=== PATIENT | female | born 1935 | race Caucasian/White ===

== ENCOUNTER → 2024-01-12 13:23 | Outpatient (REF) | payer MEDICARE, BC, SELFPAY ==
[2024-01-12 16:30] LABS: Blood Urea Nitrogen 19 mg/dl (7-17); Calcium 9.5 mg/dl (8.4-10.2); Carbon Dioxide 28 mmol/L (22-30); Chloride 97 mmol/L (98-107); Glucose 84 mg/dl (70-99); Potassium 4.3 mmol/L (3.5-5.1); Sodium 134 mmol/L (135-145); eGFR > 60.00
== END ==
LOC: HWLAB 13:23
PROVIDERS: ATTENDING PHYSICIAN Surgery Vascular Surgery; FAMILY PHYSICIAN Family Medicine
DX: I72.8 Aneurysm of other specified arteries (principal)
CPT/HCPCS: 36415; 80048

== ENCOUNTER → 2024-01-26 09:44 | Outpatient (REF) | payer MEDICARE, BC, SELFPAY | LOC: HWRAD 09:44 | PROVIDERS: ATTENDING PHYSICIAN Surgery Vascular Surgery; FAMILY PHYSICIAN Family Medicine | DX: I72.8 Aneurysm of other specified arteries (principal) | CPT/HCPCS: 74174; Q9967 ==

== ENCOUNTER → 2024-03-22 12:57 | Outpatient (REF) | payer MEDICARE, BC, SELFPAY | LOC: PAVMRI 12:57 | PROVIDERS: ATTENDING PHYSICIAN Neurological Surgery; FAMILY PHYSICIAN Family Medicine | DX: M54.6 Pain in thoracic spine (principal) | CPT/HCPCS: 72146 ==

== ENCOUNTER 2024-05-16 22:44 | Emergency (ER) | payer MEDICARE, BC, SELFPAY ==
[2024-05-16 22:45] VITALS: BP 223/104
[2024-05-16 22:49] VITALS: BP 207/101
[2024-05-16 23:24] VITALS: BP 210/81
--- NOTE | 2024-05-16 23:36 | ED.GENMED ---
Addendum entered and electronically signed by Dale Sneed DO 05/17/24 01:46:
Update CT reports noted, patient's blood pressure improved, resting comfortably states she is feeling better
Reviewed her outpatient meds she is on losartan 100 mg, previously 50 and then 75 and also diltiazem daily
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
Original Note:
History of Present Illness
General
Chief Complaint: Blood Pressure Problem
Source: patient and family
Exam Limitations: none
Time Seen by Provider: 05/16/24 22:56
Nursing documentation reviewed up to this point in time: agreed with
History of Present Illness
History of Present Illness:
88-year-old female hypertension, high cholesterol, recent UTI treated with antibiotics sinus congestion chronic followed by ENT, Noel's esophagitis presents with fatigue headache congestion elevated blood pressure blood pressures are normal few
days ago elevated today called her daughters, states she was available brought to the ER states feels a little short of breath due to congestion from her sinuses believe she may be more pale than normal, daughter is do not believe that is the case,
no fevers, no vomiting she took her evening dose of blood pressure medicine currently
Past History
Past History
ED Past Medical History: GERD, HTN, Hypercholesterolemia and Other (Back pain, Barrets esophagus, hiatal hernia)
ED Past Surgical History: Gynecological (Breast biopsy) and Other (Bladder surgery, vein stripping cataracts)
Social History
Tobacco: Non-smoker
Alcohol: None
Drug: None
Personal:
Living: alone
Employment: Retired
Review of Systems
Review of Systems
All Other Systems: Not applicable
Constitutional: Reports fatigue; Denies fever
EENT: Reports runny nose
Respiratory: Reports trouble breathing; Denies cough
Cardiac: Denies chest pain
ABD/GI: Reports no symptoms
: Reports no symptoms
Musculoskeletal: Reports no symptoms
Neurological: Reports headache
Endocrine: Reports no symptoms
Phy Exam
Physical Exam
Physical Exam:
Physical Exam
General: no apparent distress, not acutely ill
Neck: No jaundice slightly stuffiness
Heart: s1/s2 regular rate and rhythm, no murmur. equal radial pulses.
Lungs: no acute respiratory distress. clear bilaterally
Abdomen: Nontender
Neuro: alert and oriented. no focal neurological deficits
Skin: no rash
Psychiatric: well kept. interactive and cooperative
Extremities: no edema.
Scores
Heart Score for Chest Pain Patients
STEMI patient?: No
History: Slightly or Non-Suspicious
ECG: Normal
Age: >/= 65 years
Risk Factors: 1 or 2 Risk Factors
Troponin: </= Normal Limit
Heart Score for Chest Pain Patients: 3
Heart Score Risk: 2.5% MACE over next 6 weeks
Course
Orders/Labs/Results
Orders:
Orders
05/16/24 23:26
Electrocardiogram (*1) Stat
Reason for Study: Other
Other Reason for Exam: Headache
Cardiac Monitoring- Treatment ONCE
EKG- Treatment ONCE
05/16/24 23:27
HydrALAZINE [Apresoline] 10 mg IV NOW STA
05/16/24 23:28
CR Chest - 2 Views Urgent
Comment:
Reason For Exam: faigute
05/16/24 23:34
Complete Blood Count/With Diff Urgent
05/16/24 23:35
Comprehensive Metabolic Panel Urgent
Troponin I Urgent
05/17/24 00:10
CT Head W/o Iv Contrast Urgent
Reason For Exam: headahce
05/17/24 00:15
CT Sinuses W/o Iv Contrast Urgent
Reason For Exam: headache
Abnormal Lab Results
05/16/24 05/16/24
23:34 23:35
WBC 4.5 L 10^3/uL
(4.8-10.8)
RBC 3.36 L 10^6/uL
(4.20-5.40)
Hgb 10.9 L g/dL
(12.0-16.0)
Hct 30.3 L %
(37.0-47.0)
MCH 32.4 H pg
(27.0-31.0)
Absolute Lymphs (auto) 0.9 L 10^3/uL
(1.2-3.4)
Monocytes % 11.9 H %
(1.7-9.3)
Sodium 131 L mmol/L
(135-145)
Glucose 114 H mg/dl
(70-99)
05/16/24 23:34
05/16/24 23:35
Vital Signs
Initial and Last Documented VS:
Initial Vital Signs
Temp Pulse Resp BP Pulse Ox
98.3 F 100 18 223/104 96
05/16/24 22:45 05/16/24 22:45 05/16/24 22:45 05/16/24 22:45 05/16/24 22:45
Last Documented Vital Signs
Temp Pulse Resp BP Pulse Ox
98.3 F 93 16 162/62 96
05/16/24 22:45 05/17/24 00:00 05/17/24 00:00 05/17/24 00:00 05/16/24 22:45
MDM/Problems Addressed
Differential Diagnosis Includes:
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
MDM/Problems Addressed:
Headache blood pressure
Chronic conditions affecting care: HTN
Acute Exacerbation and/or Progression of Chronic Illness: HTN
*Radiology
Radiology exam reviewed: preliminary read by ED provider
*Pulse Oximetry
Patient hypoxic: no
*EKG
Interpreted by ED Provider?: Yes
Interpretation: abnormal
Comparison EKG: no comparison EKG present
Heart Rate: 94
Rate: normal
Rhythm: sinus
Ischemia: non-specific ST changes
*Back Tender Fourdrinier Interpretation
Rate: normal
Interpretation: normal
Heart Rate: 88
Rhythm: sinus
*Critical Care Note
Total Time (30-74mins, 75-104mins- exclusive of procedures): Not Applicable
ED Attending Note
-
Portions of this chart may have been created with voice recognition software.� Occasional wrong word or��sound alike� substitutions may have occurred due to the inherent limitations of voice recognition software.
Discharge Plan
Departure
Prescriptions:
No Action
atorvastatin 10 MG tablet
1 tab PO DAILY
diltiazem HCl [Tiadylt ER] 240 MG capsule,extended release 24 hr
240 mg PO DAILY
omeprazole 40 MG capsule,delayed release(DR/EC)
40 mg PO DAILY
losartan 25 MG tablet
25 mg PO DAILY
cholecalciferol (vitamin D3) 2,000 UNITS tablet
2,000 units PO DAILY
Prolia 60 MG/ML syringe
60 mg SC [id number]
loratadine 10 MG capsule
10 mg PO DAILYPRN PRN (Reason: allergies)
PreserVision AREDS-2 1 EACH capsule
1 cap PO DAILY
clobetasol 0.05 % Cream
1 applic TOPICAL WEEKLY
cranberry 400 mg Capsule
400 mg PO DAILY
estradiol 0.01 % (0.1 mg/gram) Cream
1 g VAGINAL QWEEK
Systane (PF) 0.4-0.3 % Dropperette
1 drp OPHTHALMIC (EYE) BID
lidocaine [DermacinRx Lidocan] 5 % adhesive patch,medicated
1 patch topical DAILY Qty: 30 0RF
Referrals:
Feli Guzman DO [Family Provider] -
Interventions
Interventions:
*General Assessment Last Done: 05/16/24 22:45
*Neglect/Abuse Screening Last Done: 05/16/24 22:45
ED- Fall Risk Assessment Last Done: 05/16/24 22:49
*ED COVID-19 Vaccine History Last Done: 05/16/24 22:49
ED- Cardiac Assessment Last Done: 05/16/24 23:30
ED- Neurological Assessment Last Done: 05/16/24 23:30
ED- Pulmonary Assessment Last Done: 05/16/24 23:30
Discharge Date and Time
Print Language: LUXEMBOURGISH
[2024-05-16] MEDS: APRESOLINE 10 MG IV (23:40)
[2024-05-16 23:43] LABS: % Basophils 0.7 % (0-2); % Eosinophils 4.5 % (0-6); % Immature Granulocytes 0.4 % (0-0.5); % Lymphocytes 20.8 % (20.5-51.1); % Monocytes 11.9 % (1.7-9.3); % Neutrophils 61.7 % (42.2-75.2); Absolute Eosinophils 0.2 10^3/uL (0-0.7); Absolute Lymphocytes 0.9 10^3/uL (1.2-3.4); Absolute Monocytes 0.5 10^3/uL (0.1-0.6); Absolute Neutrophils 2.8 10^3/uL (1.4-6.5); Hematocrit 30.3 % (37.0-47.0); Hemoglobin 10.9 g/dL (12.0-16.0); Mean Corpuscular Hgb 32.4 pg (27.0-31.0); Mean Corpuscular Volume 90.2 fL (81.0-99.0); Mean Platelet Volume 9.1 fL (7.4-10.4); Nucleated Red Blood Cells % 0 %; Platelet Count 194 10^3/uL (130-400); Red Blood Cell Count 3.36 10^6/uL (4.20-5.40); Red Cell Dist. Width 13.1 % (11.5-14.5); White Blood Cell Count 4.5 10^3/uL (4.8-10.8)
[2024-05-16 23:49] VITALS: BMI 20.7
[2024-05-16 23:53] VITALS: BP 176/68
[2024-05-17] VITALS: BP 162/62
[2024-05-17 00:07] LABS: Troponin I < 0.012 ng/ml
[2024-05-17 00:13] LABS: ALT (SGPT) 24 U/L (0-35); AST (SGOT) 29 U/L (14-36); Albumin 3.8 g/dl (3.5-5.0); Alkaline Phosphatase 92 U/L (38-126); Blood Urea Nitrogen 15 mg/dl (7-17); Calcium 9.8 mg/dl (8.4-10.2); Carbon Dioxide 22 mmol/L (22-30); Chloride 102 mmol/L (98-107); Estimated Creatinine Clearance 41 ml/min; Glucose 114 mg/dl (70-99); Potassium 4.1 mmol/L (3.5-5.1); Sodium 131 mmol/L (135-145); Total Bilirubin 0.5 mg/dl (0.2-1.3); Total Protein 6.3 g/dl (6.3-8.2); eGFR > 60.00
[2024-05-17 00:44] VITALS: BP 149/60
[2024-05-17 01:00] VITALS: BP 144/55
--- NOTE | 2024-05-17 01:24 | ED.GENMED ---
History of Present Illness
General
Chief Complaint: Blood Pressure Problem
Time Seen by Provider: 05/16/24 22:56
Past History
Past History
ED Past Medical History: GERD, HTN, Hypercholesterolemia and Other (Back pain, Barrets esophagus, hiatal hernia)
ED Past Surgical History: Gynecological (Breast biopsy) and Other (Bladder surgery, vein stripping cataracts)
Social History
Tobacco: Non-smoker
Alcohol: None
Drug: None
Personal:
Living: alone
Employment: Retired
Course
Orders/Labs/Results
Orders:
Orders
05/16/24 23:26
Electrocardiogram (*1) Stat
Reason for Study: Other
Other Reason for Exam: Headache
Cardiac Monitoring- Treatment ONCE
EKG- Treatment ONCE
05/16/24 23:27
HydrALAZINE [Apresoline] 10 mg IV NOW STA
05/16/24 23:28
CR Chest - 2 Views Urgent
Comment:
Reason For Exam: faigute
05/16/24 23:34
Complete Blood Count/With Diff Urgent
05/16/24 23:35
Comprehensive Metabolic Panel Urgent
Troponin I Urgent
05/17/24 00:10
CT Head W/o Iv Contrast Urgent
Reason For Exam: headahce
05/17/24 00:15
CT Sinuses W/o Iv Contrast Urgent
Reason For Exam: headache
Abnormal Lab Results
05/16/24 05/16/24
23:34 23:35
WBC 4.5 L 10^3/uL
(4.8-10.8)
RBC 3.36 L 10^6/uL
(4.20-5.40)
Hgb 10.9 L g/dL
(12.0-16.0)
Hct 30.3 L %
(37.0-47.0)
MCH 32.4 H pg
(27.0-31.0)
Absolute Lymphs (auto) 0.9 L 10^3/uL
(1.2-3.4)
Monocytes % 11.9 H %
(1.7-9.3)
Sodium 131 L mmol/L
(135-145)
Glucose 114 H mg/dl
(70-99)
05/16/24 23:34
05/16/24 23:35
Vital Signs
Initial and Last Documented VS:
Initial Vital Signs
Temp Pulse Resp BP Pulse Ox
98.3 F 100 18 223/104 96
05/16/24 22:45 05/16/24 22:45 05/16/24 22:45 05/16/24 22:45 05/16/24 22:45
Last Documented Vital Signs
Temp Pulse Resp BP Pulse Ox
98.3 F 93 16 162/62 96
05/16/24 22:45 05/17/24 00:00 05/17/24 00:00 05/17/24 00:00 05/16/24 22:45
Update Note
Update Note:
Update CT reports noted, patient's blood pressure improved, resting comfortably states she is feeling better
Reviewed her outpatient meds she is on losartan 100 mg, previously 50 and then 75 and also diltiazem daily
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
ED Attending Note
-
Portions of this chart may have been created with voice recognition software.� Occasional wrong word or��sound alike� substitutions may have occurred due to the inherent limitations of voice recognition software.
Discharge Plan
Departure
Prescriptions:
No Action
atorvastatin 10 MG tablet
1 tab PO DAILY
diltiazem HCl [Tiadylt ER] 240 MG capsule,extended release 24 hr
240 mg PO DAILY
losartan 25 MG tablet
100 mg PO DAILY
cholecalciferol (vitamin D3) 2,000 UNITS tablet
2,000 units PO DAILY
Prolia 60 MG/ML syringe
60 mg SC [id number]
PreserVision AREDS-2 1 EACH capsule
1 cap PO DAILY
clobetasol 0.05 % Cream
1 applic TOPICAL .TWICE PER WK
cranberry 400 mg Capsule
400 mg PO DAILY
estradiol 0.01 % (0.1 mg/gram) Cream
1 g VAGINAL .TWICE PER WK
Systane (PF) 0.4-0.3 % Dropperette
1 drp OPHTHALMIC (EYE) BID
lidocaine [DermacinRx Lidocan] 5 % adhesive patch,medicated
1 patch topical DAILY Qty: 30 0RF
omeprazole 20 mg Capsule,Delayed Release(Dr/Ec)
20 mg PO DAILY
Fluticasone Nasal [place]
2 spray instillation DAILY
Rx Instructions:
EACH NOSTRIL
Vitamin B12 Tablet
1,000 mcg PO DAILY
Referrals:
Feli Guzman DO [Family Provider] -
Interventions
Interventions:
*General Assessment Last Done: 05/16/24 22:45
*Neglect/Abuse Screening Last Done: 05/16/24 22:45
ED- Fall Risk Assessment Last Done: 05/16/24 22:49
*ED COVID-19 Vaccine History Last Done: 05/16/24 22:49
ED- Cardiac Assessment Last Done: 05/16/24 23:30
ED- Neurological Assessment Last Done: 05/16/24 23:30
ED- Pulmonary Assessment Last Done: 05/16/24 23:30
Discharge Date and Time
Print Language: OCCITAN
[2024-05-17 01:36] VITALS: BP 116/50
== END 2024-05-17 01:40 | disposition home or self-care (01) ==
LOC: EMR 22:44
PROVIDERS: EMERGENCY PHYSICIAN Emergency Medicine; FAMILY PHYSICIAN Family Medicine
DX: R51.9 Headache, unspecified (principal); I10 Essential (primary) hypertension; E78.00 Pure hypercholesterolemia, unspecified; K21.9 Gastro-esophageal reflux disease without esophagitis; Z87.19 Personal history of other diseases of the digestive system; Z87.440 Personal history of urinary (tract) infections
CPT/HCPCS: 99284; 96374; 70450; 70486; 71046; 80053; 84484; 85025; 93005

== ENCOUNTER 2024-05-23 19:26 | Inpatient (IN) | payer MEDICARE, BC, SELFPAY ==
[2024-05-23 16:53] VITALS: BP 194/110
[2024-05-23 18:10] LABS: PT 14.1 Sec (11.4-14.6)
[2024-05-23 18:11] LABS: APTT 27.5 Sec (23.4-35.0)
[2024-05-23 18:12] LABS: % Basophils 0.4 % (0-2); % Eosinophils 3.8 % (0-6); % Immature Granulocytes 0.7 % (0-0.5); % Lymphocytes 22.3 % (20.5-51.1); % Monocytes 12.8 % (1.7-9.3); Absolute Eosinophils 0.2 10^3/uL (0-0.7); Absolute Monocytes 0.6 10^3/uL (0.1-0.6); Absolute Neutrophils 2.7 10^3/uL (1.4-6.5); Hemoglobin 10.3 g/dL (12.0-16.0); Mean Corp Hgb Conc. 35.5 g/dL (33.0-37.0); Mean Corpuscular Hgb 32.4 pg (27.0-31.0); Mean Corpuscular Volume 91.2 fL (81.0-99.0); Nucleated Red Blood Cells % 0 %; Platelet Count 3 10^3/uL (130-400); Red Blood Cell Count 3.18 10^6/uL (4.20-5.40); Red Cell Dist. Width 13.3 % (11.5-14.5); White Blood Cell Count 4.5 10^3/uL (4.8-10.8)
--- NOTE | 2024-05-23 18:14 | ED.GENMED ---
History of Present Illness
General
Chief Complaint: Abnormal Lab Value
Source: patient
Time Seen by Provider: 05/23/24 17:16
History of Present Illness
History of Present Illness:
88-year-old female with past medical history of hypertension and hyperlipidemia presenting to the emergency department for evaluation at the request of her primary care provider after patient had outpatient labs done today which showed a platelet
count of 2. Patient notes that she has been a little bit fatigued over the last few weeks and notes that she was treated for urinary tract infection, initially on ciprofloxacin but culture reportedly showed resistance to this so was switched to
doxycycline and the patient has completed this. She denies any fevers, chills, rigors but does states she has noted some increased bruising to both her upper and lower extremities and then a couple of days ago noted when she blew her nose it was
rae blood and then has also had some intraoral blood today as well. She denies any history of thrombocytopenia but does note a history of mild anemia. She is not on any anticoagulant medication.
Past History
Past History
ED Past Medical History: GERD, HTN, Hypercholesterolemia and Other (Back pain, Barrets esophagus, hiatal hernia)
ED Past Surgical History: Gynecological (Breast biopsy) and Other (Bladder surgery, vein stripping cataracts)
Social History
Tobacco: Non-smoker
Alcohol: None
Drug: None
Personal:
Living: alone
Employment: Retired
Review of Systems
Review of Systems
All Other Systems: ROS reviewed and negative except as documented in HPI and ROS
Phy Exam
Physical Exam
Physical Exam:
GENERAL: Alert , in no apparent distress
EYE: clear conjunctiva
NECK: Supple
ENT: o/p clr, mmm. Small bleeding from the gums and tongue
CARDIAC: Regular rate and rhythm .
LUNGS: Clear breath sounds bilaterally, no acute respiratory distress, no wheezes/rales/rhonchi
ABDOMEN: Soft, without focal tenderness, no r/g, no cvat
NEUROLOGICAL: Alert and oriented
SKIN: Warm and dry, skin intact. Scattered petechiae to bilateral upper and lower extremities including the soft palate
MUSCULOSKELETAL: No edema, well perfused.
PSYCH: Normal and appropriate interaction.
Scores
Heart Failure Risk
Heart Failure Risk Score: Not Applicable
Heart Score for Chest Pain Patients
STEMI patient?: Not applicable
Withdrawal Assessment of Alcohol
Withdrawal Assessment Completed?: Not applicable
Course
Orders/Labs/Results
Orders:
Orders
05/23/24 17:40
Dexamethasone Sod Phosphate [Decadron] 20 mg IV NOW STA
05/23/24 17:43
* Blood Bank Products Urgent
Blood Bank Products: *Plt Single Donor Leuko
Quantity: 1
Transfuse Today: Yes
Reason: Thrombocytopenia
05/23/24 17:48
Type+Screen Urgent
Complete Blood Count/With Diff Urgent
Comprehensive Metabolic Panel Urgent
PTT Urgent
Prothrombin Time Urgent
05/23/24 19:00
Dexamethasone Sod Phosphate [Decadron] 40 mg 0.9% Sodium Chloride 50 ml [Nss] 50 ml IV ONCE
Abnormal Lab Results
05/23/24
17:48
WBC 4.5 L 10^3/uL
(4.8-10.8)
RBC 3.18 L 10^6/uL
(4.20-5.40)
Hgb 10.3 L g/dL
(12.0-16.0)
Hct 29.0 L %
(37.0-47.0)
MCH 32.4 H pg
(27.0-31.0)
Plt Count 3 L* D 10^3/uL
(130-400)
Absolute Lymphs (auto) 1.0 L 10^3/uL
(1.2-3.4)
Immature Gran % 0.7 H %
(0-0.5)
Monocytes % 12.8 H %
(1.7-9.3)
Sodium 130 L mmol/L
(135-145)
Total Protein 6.1 L g/dl
(6.3-8.2)
05/23/24 17:48
05/23/24 17:48
Vital Signs
Initial and Last Documented VS:
Initial Vital Signs
Temp Pulse Resp BP Pulse Ox
98.5 F 102 18 194/110 94
05/23/24 16:53 05/23/24 16:53 05/23/24 16:53 05/23/24 16:53 05/23/24 16:53
Last Documented Vital Signs
Temp Pulse Resp BP Pulse Ox
98.5 F 102 18 194/110 94
05/23/24 16:53 05/23/24 16:53 05/23/24 16:53 05/23/24 16:53 05/23/24 16:53
Turret Lathe Tender consulted with Physician
Turret Lathe Tender consulted with physician?: Yes
Name of Physician Consulted: Leona
MDM/Problems Addressed
Differential Diagnosis Includes:
ITP, TTP, malignancy, drug induced reaction
MDM/Problems Addressed:
88-year-old female presenting to the ER at the recommendation of her primary care due to thrombocytopenia with a platelet count of 2. Patient does report some increased fatigue as well as petechiae to her extremities. Labs reviewed from earlier
this morning and there is no anemia or leukocytosis/leukopenia. Question viral infection versus drug-induced ITP versus malignancy. Will discuss with hematology. Anticipate admission
*Pulse Oximetry
Patient hypoxic: no
*Critical Care Note
Total Time (30-74mins, 75-104mins- exclusive of procedures): 30
comment:
Critical care statement: A total of 30 minutes of critical care time was provided for this patient. This includes management of unstable vital signs, evaluation of the patient at bedside, reviewing the patient's pertinent medical records, discussion
with consultants, review of old EKGs and review of pertinent medical records. This time with separate from time utilized to perform the aforementioned documented procedures
Data Reviewed
Review of Other/Old Records Reveals: Labs and Records
Patient Management
Discussion with other providers: Hospitalist and Acid Bleacher
Escalation/DeEscalation of care consider admission/obs:
Case discussed with hematology who is recommending adding on 40 mg dexamethasone x 4 days in addition to the platelet transfusion. Hospitalist team is aware and accepts for continued evaluation and treatment
ED Attending Note
-
Portions of this chart may have been created with voice recognition software.� Occasional wrong word or��sound alike� substitutions may have occurred due to the inherent limitations of voice recognition software.
Discharge Plan
Departure
Patient Disposition: Admit
Date of Disposition: 05/23/24
Time of Disposition: 18:15
Presentation/result/management discussed w/ accepting MD/DO: Hospitalist
Discharge Problem:
Thrombocytopenia
Prescriptions:
No Action
atorvastatin 10 MG tablet
10 mg PO DAILY
diltiazem HCl [Tiadylt ER] 240 MG capsule,extended release 24 hr
240 mg PO DAILY
Prolia 60 MG/ML syringe
60 mg SC [id number]
PreserVision AREDS-2 1 EACH capsule
1 cap PO DAILY
clobetasol 0.05 % Cream
1 applic TOPICAL .2X WEEKLY
estradiol 0.01 % (0.1 mg/gram) Cream
1 g VAGINAL .2X WEEKLY
Systane (PF) 0.4-0.3 % Dropperette
1 drp BOTH EYES BID
cyanocobalamin (vitamin B-12) 1,000 mcg Tablet
2,000 mcg PO Q48H
omeprazole 20 mg Capsule,Delayed Release(Dr/Ec)
20 mg PO DAILY
fluticasone propionate 50 mcg/actuation [place],Suspension
2 spray INTRANASAL DAILY
Rx Instructions:
EACH NOSTRIL
Debrox 6.5 % Drops
5 drp EACH EAR WEEKLY
losartan 100 mg tablet
100 mg PO DAILY
loratadine [Claritin] 10 mg Tablet
10 mg PO DAILY
cholecalciferol (vitamin D3) 50 mcg (2,000 unit) Tablet
50 mcg PO DAILY
cranberry 450 mg Tablet
450 mg PO DAILY
ibuprofen 400 mg tablet
400 mg PO Q8HPRN PRN (Reason: mild pain)
Referrals:
Feli Guzman DO [Family Provider] -
Interventions
Interventions:
*Risk Screen - Suicide Last Done: 05/23/24 16:53
*General Assessment Last Done: 05/23/24 16:53
*Neglect/Abuse Screening Last Done: 05/23/24 16:53
Discharge Date and Time
Print Language: NAMIBIAN
--- NOTE | 2024-05-23 18:15 | HPS.HSE ---
Addendum entered and electronically signed by Marilyn Contreras MD 05/24/24 09:15:
HPI:
Patient reports that she has felt fatigued over past week. She had dysuria two weeks ago and was treated with Cipro then abx changed to Doxycycline given resistance. She completed course and dysuria resolved. Last night noted mild epistaxis and
spitting up blood. She saw PCP today who noticed rash along arms and sent her for urgent blood test.
No fevers/chills. No cough. No chest pain. + indigestion in setting hx Noel's. No nausea/vomiting/diarrhea. No LE swelling.
Original Note:
Family Physician
-
Family Physician: Feli Guzman
Chief Complaint
-
bleeding
History of Present Illness
Ms. Lelia Vasquez is a 88 yo woman with hx essential HTN, HLD, Noel's esophagitis, recent ER Visit for [facility]MER presents to the ER with rash and spitting up blood.
Medical History
Past Medical History
Past Medical History: Reports Other (essential HTN, HLD, Noel's esophagitis)
Past Surgical History: Reports Other
Social History
Tobacco: Non-smoker
Alcohol: None
Family History
Family History: Not pertinent
Allergies / Home Medications
Allergies reflects when Allergies were last updated in [facility].
Home Medications with original date entered in [facility]
Allergy/Medication List:
Allergies
Allergy/AdvReac Type Severity Reaction Status Date / Time
amoxicillin Allergy Rash Verified 05/23/24 16:53
cefuroxime [From Ceftin] Allergy reaction - Verified 05/23/24 18:17
diarrhea
codeine Allergy Vomiting Verified 05/23/24 16:53
hydrochlorothiazide Allergy Vomiting Verified 05/23/24 16:53
minocycline Allergy Vomiting Verified 05/23/24 16:53
morphine Allergy Vomiting Verified 05/23/24 16:53
oxycodone [From Percocet] Allergy Vomiting Verified 05/23/24 16:53
propoxyphene Allergy Vomiting Verified 05/23/24 16:53
[From Darvocet-N]
Sulfa (Sulfonamide Allergy Swelling Verified 05/23/24 16:53
Antibiotics)
Home Medications
atorvastatin 10 mg tablet 10 mg PO DAILY High cholesterol 10/13/14
denosumab 60 mg/mL subcutaneous syringe (Prolia) 60 mg SC [id number] OSTEOPOROSIS 10/12/20
diltiazem HCl 240 mg capsule,24 hr,extended release (Tiadylt ER) 240 mg PO DAILY Blood pressure 10/12/20
vit C 250 mg-vit E 90 mg-zinc 40 mg-copper 1 [id number] capsule (PreserVision AREDS-2) 1 cap PO DAILY Supplement 10/12/20
clobetasol 0.05 % topical cream 1 applic topical .2X WEEKLY 05/07/22
estradiol 0.01% (0.1 mg/gram) vaginal cream 1 g vaginal .2X WEEKLY 05/07/22
peg 400-propylene glycol (PF) 0.4 %-0.3 % eye drops in a dropperette (Systane (PF)) 1 drp BOTH EYES BID 05/07/22
cyanocobalamin (vitamin B-12) 1,000 mcg tablet 2,000 mcg PO Q48H 05/17/24
fluticasone propionate 50 mcg/actuation nasal spray,suspension 2 spray intranasal DAILY 05/17/24
omeprazole 20 mg capsule,delayed release 20 mg PO DAILY 05/17/24
carbamide peroxide 6.5 % ear drops (Debrox) 5 drp EACH EAR WEEKLY 05/23/24
cholecalciferol (vitamin D3) 50 mcg (2,000 unit) tablet 50 mcg PO DAILY 05/23/24
cranberry fruit 450 mg tablet (cranberry) 450 mg PO DAILY 05/23/24
ibuprofen 400 mg tablet 400 mg PO Q8HPRN PRN mild pain 05/23/24
loratadine 10 mg tablet (Claritin) 10 mg PO DAILY 05/23/24
losartan 100 mg tablet 100 mg PO DAILY 05/23/24
Review of Systems
-
History Source: Patient
A 12 point ROS was completed and negative except as noted: Yes
Physical Exam
Vital Signs
Vital Signs
Temp Pulse Resp BP Pulse Ox
98.5 F 102 18 194/110 94
05/23/24 16:53 05/23/24 16:53 05/23/24 16:53 05/23/24 16:53 05/23/24 16:53
Physical Exam
General: No Apparent Distress
HEENT: PERRLA
Respiratory: Clear; No Wheezes
Cardiac: S1/S2 and Regular Rhythm
GI: Soft and Non Tender
Musculoskeletal: No Edema
Skin: Warm, Rash and Other (+ bruising and petechiae )
Neuro: AO x 3
Psych: Calm
Laboratory Results
-
05/23/24 17:48
Data Reviewed
-
Diagnostic Radiology: Report Reviewed by me
Lab Data: Labs Reviewed by me
Impression/Plan
-
Ms. Lelia Vasquez is a 88 yo woman with hx essential HTN, HLD, Noel's esophagitis, recent ER Visit for PALMER presents to the ER with rash and spitting up blood.
Triage VS: T 98.5, P 102, BP 194/110, SpO2 94% RA, RR 18
LABS: WBC 4.5, Hg 10.3, PLT 3, INR 1.1, Na 130, K+ 3.7, Cl 98, Cr 0.7, vitamin B12 > 1000
Severe Thrombocytopenia with Bleeding
-case discussed with Oncology, Dr. 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 Dexamethasone 40mg daily x 4 days started
-ordered for 1 unit PLT
-hematology consult
-no NSAID and blood thinners
-hold DIET AIDE pepcid
Hyponatremia
-F/U urine studies
Hypertensive Urgency
Essential Hypertension
-DIET AIDE regimen: Diltiazem 240mg PO QD; Losartan 100mg PO QD
Hyperlipidemia
-DIET AIDE Lipitor
Noel's Esophagitis
-DIET AIDE PPI
no DVT PPx given low PLT, except short stay
FULL CODE
[2024-05-23 18:22] LABS: ALT (SGPT) 21 U/L (0-35); AST (SGOT) 33 U/L (14-36); Albumin 3.7 g/dl (3.5-5.0); Alkaline Phosphatase 100 U/L (38-126); Blood Urea Nitrogen 11 mg/dl (7-17); Calcium 8.9 mg/dl (8.4-10.2); Carbon Dioxide 23 mmol/L (22-30); Chloride 102 mmol/L (98-107); Glucose 92 mg/dl (70-99); Potassium 4.2 mmol/L (3.5-5.1); Sodium 130 mmol/L (135-145); Total Bilirubin 0.3 mg/dl (0.2-1.3); Total Protein 6.1 g/dl (6.3-8.2); eGFR > 60.00
[2024-05-23] MEDS: DECADRON 20 MG IV (18:40)
[2024-05-23] MEDS: DECADRON 60 MG IV ×2 (18:43→22:33)
[2024-05-23 19:43] VITALS: BP 179/97
[2024-05-23 19:58] VITALS: BP 179/97
[2024-05-23 20:02] VITALS: BP 169/94
[2024-05-23 20:35] VITALS: BP 176/91; BMI 20.8
[2024-05-23 20:40] LABS: Osmolality Urine 177 mOsm/kg (300-900)
[2024-05-23] MEDS: REFRESH EYE DROPS (PF) 1 DROPS BOTH EYES (20:48)
[2024-05-23] MEDS: TYLENOL 650 MG PO (20:48)
[2024-05-23 21:04] LABS: Urine Sodium 56 mmol/L (30-90)
[2024-05-23 22:30] VITALS: BP 144/69
--- NOTE | 2024-05-23 23:06 | PTCARENOTE ---
Pt. arrived to unit from ED via stretcher. Patient able to safely ambulate into room 325 on . Platelet transfusion running upon arrival to floor. Pt. daughters at bedside. Pt. AAOx3 and able to make needs known. Tele placed per orders.
Daughter Beata would like call from hematology tomorrow-will pass on in report to day shift RN. Oriented to unit. Call milligan within reach. Plan of care ongoing.
[2024-05-24] VITALS (7 sets, daily range): BP systolic 120–176; BP diastolic 60–80; PULSE 91; BMI 20.8
--- NOTE | 2024-05-24 07:04 | CON.ONC ---
Impression
Impression
ITP
normocytic anemia
Plan
Plan
Dexamethasone 40 mg PO QD x 4 days.
Continue PPI (Getting inpt Protonix, outpt takes omeprazole).
Monitor PLT and bleeding precautions.
Monitor HgB and T/C further workup although this just could be acute blood loss related.
Patient History
History of Present Illness
CC: Fatigue and low PLT
HPI: 88 yo woman presents to the ER referred by her PCP for PLT = 2,000. She has had a history of fatigue x few months. Has Hx recurrent UTIs that have been controlled by cranberry pills but she went to the [facility] [place] in March and forgot to bring them.
She then developed UTI initially treated with ciprofloxacin but culture reportedly showed resistance to this so was switched to doxycycline and the patient has completed this. She denies any fevers, chills, rigors but does states she has noted some
increased bruising to both her upper and lower extremities and then a couple of days ago noted when she blew her nose it was rae blood and then has also had some intraoral blood as well. She denies any history of thrombocytopenia but does note a
history of mild anemia earlier in life with . She was given 1 dose dexamethasone 40 mg IV x 1 and 1 unit PLT transfusion was ordered.
Past-Medical/Surgical History
PMH: essential HTN, HLD, Noel's esophagitis/GERD, hiatal hernia, back pain, recurrent UTI's
PSH: Breast biopsy, Bladder surgery, vein stripping, cataracts
SH:
Tobacco: Non-smoker
Alcohol: None
Drug: None
Personal:
Living: alone
Employment: Retired
FH: Not pertinent
Patient Medication
�Medication �Instructions �Recorded �Confirmed �Last Taken �Type
atorvastatin 10 mg tablet 10 mg PO DAILY High cholesterol 10/13/14 05/23/24 05/23/24 History
denosumab 60 mg/mL subcutaneous 60 mg SC [id number] OSTEOPOROSIS 10/12/20 05/23/24 Unknown History
syringe (Prolia)
diltiazem HCl 240 mg capsule,24 240 mg PO DAILY Blood pressure 10/12/20 05/23/24 05/23/24 History
hr,extended release (Tiadylt ER)
vit C 250 mg-vit E 90 mg-zinc 40 1 cap PO DAILY Supplement 10/12/20 05/23/24 05/23/24 History
mg-copper 1 wz-kalgmy-mrmrhs
capsule (PreserVision AREDS-2)
clobetasol 0.05 % topical cream 1 applic topical .2X WEEKLY 05/07/22 05/23/24 Unknown History
estradiol 0.01% (0.1 mg/gram) 1 g vaginal .2X WEEKLY 05/07/22 05/23/24 Unknown History
vaginal cream
peg 400-propylene glycol (PF) 0.4 1 drp BOTH EYES BID 05/07/22 05/23/24 05/23/24 History
%-0.3 % eye drops in a dropperette
(Systane (PF))
cyanocobalamin (vitamin B-12) 2,000 mcg PO Q48H 05/17/24 05/23/24 Unknown History
1,000 mcg tablet
fluticasone propionate 50 2 spray intranasal DAILY 05/17/24 05/23/24 05/23/24 History
mcg/actuation nasal
spray,suspension
omeprazole 20 mg capsule,delayed 20 mg PO DAILY 05/17/24 05/23/24 05/23/24 History
release
carbamide peroxide 6.5 % ear drops 5 drp EACH EAR WEEKLY 05/23/24 05/23/24 05/19/24 History
(Debrox)
cholecalciferol (vitamin D3) 50 50 mcg PO DAILY 05/23/24 05/23/24 05/23/24 History
mcg (2,000 unit) tablet
cranberry fruit 450 mg tablet 450 mg PO DAILY 05/23/24 05/23/24 05/23/24 History
(cranberry)
ibuprofen 400 mg tablet 400 mg PO Q8HPRN PRN mild pain 05/23/24 05/23/24 Unknown History
loratadine 10 mg tablet (Claritin) 10 mg PO DAILY 05/23/24 05/23/24 05/23/24 History
losartan 100 mg tablet 100 mg PO DAILY 05/23/24 05/23/24 05/23/24 History
Active Medications
Generic Name Dose Route Start Last Admin
Trade Name Freq PRN Reason Stop Dose Admin
Acetaminophen 650 mg 05/23/24 20:12 05/23/24 20:48
Acetaminophen 325 Mg Tablet PO 06/20/24 20:11 650 mg
Q4HPRN PRN Administration
mild pain/PALMER/temp> 100.4F
Artificial Tears 1 drops 05/23/24 20:30 05/23/24 20:48
Artificial Tears Pf (Refresh) 10 Drop Droperette BOTH EYES 06/20/24 20:29 1 drops
BID HUGO Administration
Atorvastatin Calcium 10 mg 05/24/24 08:00
Atorvastatin (Lipitor) 10 Mg Tablet PO 06/21/24 07:59
DAILY HUGO
Diltiazem HCl 240 mg 05/24/24 08:00
Diltiazem 240 Mg Extended Release (24 H) Capsule PO 06/21/24 07:59
DAILY HUGO
Loratadine 10 mg 05/24/24 08:00
Loratadine 10 Mg Tablet PO 06/21/24 07:59
DAILY HUGO
Losartan Potassium 100 mg 05/24/24 08:00
Losartan 100 Mg Tablet PO 06/21/24 07:59
DAILY HUGO
Pantoprazole Sodium 40 mg 05/24/24 08:00
Pantoprazole 40 Mg Delayed Release Tablet PO 06/21/24 07:59
DAILY HUGO
Polyethylene Glycol 17 grams 05/23/24 20:12
Polyethylene Glycol Powder 17 Grams Packet PO 06/20/24 20:11
DAILYPRN PRN
constipation
Sodium Chloride 0 flush 05/23/24 21:00
Sodium Chloride 0.9% (Flush) Syringe IV 06/20/24 20:59
PER PROTOCOL HUGO
Physical Exam
-
General: Well Developed, Well Nourished and No Apparent Distress
HEENT: Negative Jaundice
Cardiology: Normal Sinus Rhythm, S1 and S2
Pulmonary: Clear
GI: Soft
Extremities: No C/C/E
Labs
Lab Results
WBC 4.5 10^3/uL (4.8-10.8) L 05/23/24 17:48
RBC 3.18 10^6/uL (4.20-5.40) L 05/23/24 17:48
Hgb 10.3 g/dL (12.0-16.0) L 05/23/24 17:48
Hct 29.0 % (37.0-47.0) L 05/23/24 17:48
MCV 91.2 fL (81.0-99.0) 05/23/24 17:48
MCH 32.4 pg (27.0-31.0) H 05/23/24 17:48
MCHC 35.5 g/dL (33.0-37.0) 05/23/24 17:48
RDW 13.3 % (11.5-14.5) 05/23/24 17:48
Plt Count 3 10^3/uL (130-400) L* D 05/23/24 17:48
MPV Not Reportable 05/23/24 17:48
Abs Immat Gran (auto) 0.0 10^3/uL (0-0.05) 05/23/24 17:48
Absolute Neuts (auto) 2.7 10^3/uL (1.4-6.5) 05/23/24 17:48
Absolute Lymphs (auto) 1.0 10^3/uL (1.2-3.4) L 05/23/24 17:48
Absolute Monos (auto) 0.6 10^3/uL (0.1-0.6) 05/23/24 17:48
Absolute Eos (auto) 0.2 10^3/uL (0-0.7) 05/23/24 17:48
Absolute Basos (auto) 0.0 10^3/uL (0-0.2) 05/23/24 17:48
Immature Gran % 0.7 % (0-0.5) H 05/23/24 17:48
Neutrophils % 60.0 % (42.2-75.2) 05/23/24 17:48
Lymphocytes % 22.3 % (20.5-51.1) 05/23/24 17:48
Monocytes % 12.8 % (1.7-9.3) H 05/23/24 17:48
Eosinophils % 3.8 % (0-6) 05/23/24 17:48
Basophils % 0.4 % (0-2) 05/23/24 17:48
Creatinine 0.8 mg/dL (0.6-1.0) 05/23/24 17:48
Vital Signs
Vital Signs
Temp Pulse Resp BP Pulse Ox
98.1 F 77 18 155/74 97
05/24/24 03:17 05/24/24 03:17 05/24/24 03:17 05/24/24 03:17 05/24/24 03:17
[2024-05-24] MEDS: COZAAR 100 MG PO (08:29)
[2024-05-24] MEDS: CARDIZEM CD 240 MG PO (08:29)
[2024-05-24] MEDS: REFRESH EYE DROPS (PF) 1 DROPS BOTH EYES ×2 (08:30→23:16)
[2024-05-24] MEDS: LIPITOR 10 MG PO (08:30)
[2024-05-24] MEDS: CLARITIN 10 MG PO (08:30)
[2024-05-24] MEDS: PROTONIX 40 MG PO (08:30)
[2024-05-24] MEDS: TYLENOL 650 MG PO (08:35)
[2024-05-24 08:52] LABS: % Immature Granulocytes 0.8 % (0-0.5); % Lymphocytes 21.7 % (20.5-51.1); % Neutrophils 75.5 % (42.2-75.2); Absolute Lymphocytes 0.9 10^3/uL (1.2-3.4); Absolute Monocytes 0.1 10^3/uL (0.1-0.6); Hematocrit 31.2 % (37.0-47.0); Hemoglobin 10.9 g/dL (12.0-16.0); Mean Corp Hgb Conc. 34.9 g/dL (33.0-37.0); Mean Corpuscular Hgb 32.1 pg (27.0-31.0); Mean Corpuscular Volume 91.8 fL (81.0-99.0); Mean Platelet Volume 15.4 fL (7.4-10.4); Nucleated Red Blood Cells % 0 %; Platelet Count 6 10^3/uL (130-400); Red Cell Dist. Width 13.4 % (11.5-14.5)
[2024-05-24 10:11] LABS: Blood Urea Nitrogen 17 mg/dl (7-17); Calcium 8.7 mg/dl (8.4-10.2); Carbon Dioxide 24 mmol/L (22-30); Chloride 101 mmol/L (98-107); Estimated Creatinine Clearance 41 ml/min; Glucose 120 mg/dl (70-99); Potassium 4.1 mmol/L (3.5-5.1); Sodium 133 mmol/L (135-145); eGFR > 60.00
--- NOTE | 2024-05-24 11:26 | W.PN.HOSP.TC ---
Today's Communication/Plan
-
see plan
Assessment / Plan
Assessment / Plan
Ms. Lelia Vasquez is a 88 yo woman with hx essential HTN, HLD, Noel's esophagitis, recent ER Visit for PALMER presents to the ER with rash and spitting up blood.
Triage VS: T 98.5, P 102, BP 194/110, SpO2 94% RA, RR 18
LABS: WBC 4.5, Hg 10.3, PLT 3, INR 1.1, Na 130, K+ 3.7, Cl 98, Cr 0.7, vitamin B12 > 1000
Severe Thrombocytopenia with Bleeding
-presentation likely 2/2 ITP. Dexamethasone 40mg daily x 4 days started
-s/p 1 unit PLT
-hematology consult appreciated
-no NSAID and blood thinners
-hold BOND UNDERWRITER pepcid
Hyponatremia
SIADH
-improved this AM
Hypertensive Urgency
Essential Hypertension
-BOND UNDERWRITER regimen: Diltiazem 240mg PO QD; Losartan 100mg PO QD
Hyperlipidemia
-BOND UNDERWRITER Lipitor
Noel's Esophagitis
-BOND UNDERWRITER PPI
no DVT PPx given low PLT, encourage ambulation
FULL CODE
Anticipated Discharge: 24 - 48 hours
Subjective/Interval History
-
Date of Service: May 24, 2024
no new complaints
no chest pain or shortness of breath
no significant bleeding
Objective Data
-
Labs:
Laboratory Results
05/24/24
08:12
WBC 4.0 L
Hgb 10.9 L
Hct 31.2 L
Plt Count 6 L* D
Sodium 133 L
Potassium 4.1
Chloride 101
Carbon Dioxide 24
BUN 17
Creatinine 0.7
Glucose 120 H
Calcium 8.7
Vital Signs:
Vital Signs
Temp Pulse Resp BP Pulse Ox
98.4 F 84 17 123/68 94
05/24/24 11:00 05/24/24 11:00 05/24/24 11:00 05/24/24 11:00 05/24/24 11:00
I&O
05/23/24 05/24/24 05/25/24
06:59 06:59 06:59
Intake Total 254 / 254
Balance 254 / 254
Review of Systems
-
History Source: Patient
All other systems: Reviewed and negative
Physical Exam
-
General: No Apparent Distress
HEENT: PERRLA
Respiratory: Clear to Auscultation; Negative Wheezes
Cardiac: Regular Rhythm and S1/S2
GI: Soft and Nontender
Skin: Rash (petechiae )
Neuro: AO x 3
Psych: Calm
Data Reviewed
-
Diagnostic Radiology: Report Reviewed by me
Labs: Labs Reviewed by me
[2024-05-24] MEDS: DECADRON 40 MG PO (11:57)
[2024-05-25 03:00] VITALS: BP 137/68
[2024-05-25 06:00] VITALS: BMI 20.5
[2024-05-25 07:46] LABS: Hematocrit 29.3 % (37.0-47.0); Hemoglobin 10.3 g/dL (12.0-16.0); Mean Corp Hgb Conc. 35.2 g/dL (33.0-37.0); Mean Corpuscular Hgb 32.2 pg (27.0-31.0); Mean Corpuscular Volume 91.6 fL (81.0-99.0); Platelet Count 23 10^3/uL (130-400); Red Cell Dist. Width 13.4 % (11.5-14.5); White Blood Cell Count 8.8 10^3/uL (4.8-10.8)
[2024-05-25 07:48] VITALS: BP 155/77
[2024-05-25] MEDS: CLARITIN 10 MG PO (08:24)
[2024-05-25] MEDS: PROTONIX 40 MG PO (08:24)
[2024-05-25] MEDS: LIPITOR 10 MG PO (08:24)
[2024-05-25] MEDS: REFRESH EYE DROPS (PF) 1 DROPS BOTH EYES ×2 (08:25→21:14)
[2024-05-25] MEDS: CARDIZEM CD 240 MG PO (08:25)
[2024-05-25] MEDS: COZAAR 100 MG PO (08:25)
[2024-05-25] MEDS: DECADRON 40 MG PO (09:30)
--- NOTE | 2024-05-25 10:08 | W.PN.HOSP.TC ---
Today's Communication/Plan
-
F/U further Heme recs
Assessment / Plan
Assessment / Plan
Ms. Lelia Vasquez is a 88 yo woman with hx essential HTN, HLD, Noel's esophagitis, recent ER Visit for PALMER presents to the ER with rash and spitting up blood.
Triage VS: T 98.5, P 102, BP 194/110, SpO2 94% RA, RR 18
LABS: WBC 4.5, Hg 10.3, PLT 3, INR 1.1, Na 130, K+ 3.7, Cl 98, Cr 0.7, vitamin B12 > 1000
Severe Thrombocytopenia with Bleeding
-presentation likely 2/2 ITP. Dexamethasone 40mg daily x 4 days started (day 3)
-s/p 1 unit PLT
-hematology consult appreciated
-no NSAID and blood thinners
-hold FOOT GATHERER pepcid
Hyponatremia
SIADH
-improved this AM
Hypertensive Urgency
Essential Hypertension
-FOOT GATHERER regimen: Diltiazem 240mg PO QD; Losartan 100mg PO QD
Hyperlipidemia
-FOOT GATHERER Lipitor
Noel's Esophagitis
-FOOT GATHERER PPI
no DVT PPx given low PLT, encourage ambulation
FULL CODE
Anticipated Discharge: Within 24 hours
Subjective/Interval History
-
Date of Service: May 25, 2024
feeling well
no complaints
no bleeding
Objective Data
-
Labs:
Laboratory Results
05/25/24
07:10
WBC 8.8
Hgb 10.3 L
Hct 29.3 L
Plt Count 23 L* D
Vital Signs:
Vital Signs
Temp Pulse Resp BP Pulse Ox
98.5 F 76 17 155/77 96
05/25/24 07:48 05/25/24 08:25 05/25/24 07:48 05/25/24 08:25 05/25/24 07:48
I&O
05/24/24 05/25/24 05/26/24
06:59 06:59 06:59
Intake Total 254 / 254 0 / 1650
Balance 254 / 254 1649 / 165
Review of Systems
-
History Source: Patient
All other systems: Reviewed and negative
Physical Exam
-
General: No Apparent Distress
HEENT: PERRLA
Respiratory: Clear to Auscultation; Negative Wheezes
Cardiac: Regular Rhythm and S1/S2
GI: Soft and Nontender
Skin: Rash (petechiae )
Neuro: AO x 3
Psych: Calm
Data Reviewed
-
Diagnostic Radiology: Report Reviewed by me
Labs: Labs Reviewed by me
[2024-05-25 11:00] VITALS: BP 169/72
--- NOTE | 2024-05-25 12:20 | W.PN.ONC ---
Today's Communication / Plan
-
plt count improved - 23,000 today
complete 4 days of pulse dexamethasone 40mg daily
upon d/c - transition to prednisone 60mg daily w/ planned taper over 10-14 days
CBC 05/29 as outpt w/ results to [facility]
will arrange f/u as outpt for continued monitoring
Impression
Impression
ITP
normocytic anemia
Plan
Plan
plts improved - 23,000 today
Dexamethasone 40 mg PO QD x 4 days.
Continue PPI (Getting inpt Protonix, outpt takes omeprazole).
Monitor PLT and bleeding precautions.
Monitor HgB and T/C further workup although this just could be acute blood loss related
if d/c planned:
-would transition to prednisone 60mg daily, after 4 days of pulse dex is complete and then taper prednisone over 10-14 days
-CBC should be checked 05/29 as oupt w/ results to [facility]
-will arrange f/u as outpt for continued monitoring of CBC
Subjective/Objective
Subjective/Objective
No new complaints
Vital Signs:
Vital Signs
Temp Pulse Resp BP Pulse Ox
98.6 F 90 18 169/72 99
05/25/24 11:00 05/25/24 11:00 05/25/24 11:00 05/25/24 11:00 05/25/24 11:00
Lab Results:
Laboratory Data
WBC 8.8 10^3/uL (4.8-10.8) 05/25/24 07:10
Hgb 10.3 g/dL (12.0-16.0) L 05/25/24 07:10
Plt Count 23 10^3/uL (130-400) L* D 05/25/24 07:10
PT 14.1 Sec (11.4-14.6) 05/23/24 17:48
INR 1.10 05/23/24 17:48
APTT 27.5 Sec (23.4-35.0) 05/23/24 17:48
eGFR > 60.00 05/24/24 08:12
Exam: unchanged
[2024-05-25 13:46] LABS: Iron 80 ug/dl (37-170)
[2024-05-25 13:56] LABS: Percent Saturation 30 % (20-50); Total Iron Binding Capacity 264 ug/dl (265-497)
[2024-05-25 14:24] LABS: Ferritin 58.9 ng/ml (11.1-264.0)
[2024-05-25 15:34] VITALS: BP 156/68
--- NOTE | 2024-05-25 17:05 | CM ---
Reviewed chart, met with patient to obtain information for assessment. Patient stated that she lives alone in a one story condo with a flight of steps to enter. She described herself as independent with her ADLs, personal care, bathing, dressing and
ambulates without device. 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 She drives and can transport herself to her appointments and do all of her own shopping. Her daughter also lives close by and is supportive.
She denied use of any DME but she has a walker.
She has had VN services through [facility] in the past but is not current. She has been to a SNF.
Patient has a prescription plan and uses the, [facility] in [place] for all of her medications.
Her PCP is, Feli Guzman.
Patient stated that functionally, she feels she is at baseline and would like to return home when medically cleared for discharge.
Plan: Case management will continue to follow and assist with discharge planning. Home when stable.
[2024-05-25 18:01] LABS: Platelet Antibody, Direct IgG Negative (Negative); Platelet Antibody, Direct IgM Positive (Negative)
[2024-05-25 19:00] VITALS: BP 162/69
[2024-05-25 23:05] VITALS: BP 143/62
[2024-05-26 03:05] VITALS: BP 156/76
[2024-05-26 06:09] VITALS: BMI 20.4
[2024-05-26 07:00] VITALS: BP 177/82
[2024-05-26] MEDS: COZAAR 100 MG PO (08:04)
[2024-05-26] MEDS: CLARITIN 10 MG PO (08:04)
[2024-05-26] MEDS: LIPITOR 10 MG PO (08:04)
[2024-05-26] MEDS: DECADRON 40 MG PO (08:04)
[2024-05-26] MEDS: CARDIZEM CD 240 MG PO (08:04)
[2024-05-26] MEDS: PROTONIX 40 MG PO (08:04)
[2024-05-26] MEDS: REFRESH EYE DROPS (PF) 1 DROPS BOTH EYES (08:04)
[2024-05-26 08:33] LABS: Hemoglobin 10.9 g/dL (12.0-16.0); Mean Corp Hgb Conc. 35.2 g/dL (33.0-37.0); Mean Corpuscular Hgb 32.4 pg (27.0-31.0); Mean Corpuscular Volume 92.3 fL (81.0-99.0); Mean Platelet Volume 12.7 fL (7.4-10.4); Platelet Count 48 10^3/uL (130-400); Red Blood Cell Count 3.36 10^6/uL (4.20-5.40); Red Cell Dist. Width 13.5 % (11.5-14.5); White Blood Cell Count 10.6 10^3/uL (4.8-10.8)
--- NOTE | 2024-05-26 09:01 | W.PN.HOSP.TC ---
Today's Communication/Plan
-
OK for DC today
Assessment / Plan
Assessment / Plan
Ms. Lelia Vasquez is a 88 yo woman with hx essential HTN, HLD, Noel's esophagitis, recent ER Visit for PALMER presents to the ER with rash and spitting up blood.
Triage VS: T 98.5, P 102, BP 194/110, SpO2 94% RA, RR 18
LABS: WBC 4.5, Hg 10.3, PLT 3, INR 1.1, Na 130, K+ 3.7, Cl 98, Cr 0.7, vitamin B12 > 1000
Severe Thrombocytopenia with Bleeding
-presentation likely 2/2 ITP. Dexamethasone 40mg daily x 4 days started (day 4) on DC transition to prednisone 60mg daily w/ planned taper over 10-14 days
-s/p 1 unit PLT
-hematology consult appreciated
-no NSAID and blood thinners
-hold SPECIAL INVESTIGATION UNIT INVESTIGATOR pepcid
Hyponatremia
SIADH
-improved this AM
Hypertensive Urgency
Essential Hypertension
-SPECIAL INVESTIGATION UNIT INVESTIGATOR regimen: Diltiazem 240mg PO QD; Losartan 100mg PO QD
Hyperlipidemia
-SPECIAL INVESTIGATION UNIT INVESTIGATOR Lipitor
Noel's Esophagitis
-SPECIAL INVESTIGATION UNIT INVESTIGATOR PPI
no DVT PPx given low PLT, encourage ambulation
FULL CODE
Anticipated Discharge: Today
Subjective/Interval History
-
Date of Service: May 26, 2024
feeling well
no bleeding
Objective Data
-
Labs:
Laboratory Results
05/26/24
07:40
WBC 10.6
Hgb 10.9 L
Hct 31.0 L
Plt Count 48 L D
Vital Signs:
Vital Signs
Temp Pulse Resp BP Pulse Ox
98.0 F 70 16 177/82 94
05/26/24 07:00 05/26/24 08:04 05/26/24 07:00 05/26/24 08:04 05/26/24 07:00
I&O
05/25/24 05/26/24 05/27/24
06:59 06:59 06:59
Intake Total 1650 / 1650 600 / 600
Balance 1650 / 1650 600 / 600
Review of Systems
-
History Source: Patient
All other systems: Reviewed and negative
Physical Exam
-
General: No Apparent Distress
HEENT: PERRLA
Respiratory: Clear to Auscultation; Negative Wheezes
Cardiac: Regular Rhythm and S1/S2
GI: Soft and Nontender
Skin: Rash (petechiae )
Neuro: AO x 3
Psych: Calm
Data Reviewed
-
Diagnostic Radiology: Report Reviewed by me
Labs: Labs Reviewed by me
--- NOTE | 2024-05-26 09:51 | W.DS.TRANS ---
DC Summary - Sales Professional Bilingual
-
Discharge Instructions:
Discharge Diagnosis/Procedures thrombocytopenia; Immune thrombocytopenic
purpura
Diet Regular
Activity As tolerated
Driving Restrictions As prior to admission
Bathing Restrictions None
Instructions:
Stand-Alone Forms:
Changes to Home Medications: Yes
Discharge Medications:
DC Medications w/original date entered in [facility]
atorvastatin 10 mg tablet 10 mg PO DAILY High cholesterol 10/13/14
denosumab 60 mg/mL subcutaneous syringe (Prolia) 60 mg SC [id number] 10/12/20
diltiazem HCl 240 mg capsule,24 hr,extended release (Tiadylt ER) 240 mg PO DAILY Blood pressure 10/12/20
vit C 250 mg-vit E 90 mg-zinc 40 mg-copper 1 ok-wyavis-vdafbs capsule (PreserVision AREDS-2) 1 cap PO DAILY Supplement 10/12/20
clobetasol 0.05 % topical cream 1 applic topical .2X WEEKLY Skin Issues 05/07/22
estradiol 0.01% (0.1 mg/gram) vaginal cream 1 g vaginal .2X WEEKLY Hormonal Agent 05/07/22
peg 400-propylene glycol (PF) 0.4 %-0.3 % eye drops in a dropperette (Systane (PF)) 1 drp BOTH EYES BID dry eyes 05/07/22
cyanocobalamin (vitamin B-12) 1,000 mcg tablet 2,000 mcg PO Q48H Supplement 05/17/24
fluticasone propionate 50 mcg/actuation nasal spray,suspension 2 spray intranasal DAILY allergies 05/17/24
omeprazole 20 mg capsule,delayed release 20 mg PO DAILY Gastrointestinal Issue 05/17/24
carbamide peroxide 6.5 % ear drops (Debrox) 5 drp EACH EAR WEEKLY ear wax removal 05/23/24
cholecalciferol (vitamin D3) 50 mcg (2,000 unit) tablet 50 mcg PO DAILY Supplement 05/23/24
cranberry fruit 450 mg tablet (cranberry) 450 mg PO DAILY Supplement 05/23/24
loratadine 10 mg tablet (Claritin) 10 mg PO DAILY allergies 05/23/24
losartan 100 mg tablet 100 mg PO DAILY Blood Pressure 05/23/24
prednisone 10 mg tablet 10 mg PO DIRECTED #42 tabs 05/26/24
Home Medication Changes
Prednisone Taper:
Take 60mg (6 tabs) x 2 days; 50mg (5 tabs) x 2 days; 40mg (4 tabs) x 2 days; 30mg (3tabs) x 2 days; 20mg (2 tabs) x2 days: then 10mg (1 tab) x 2 days
Do not take aspirin or NSAIDs (advil, motrin, aleve, ibuprofen etc).
Pending Results: No
--- NOTE | 2024-05-26 10:55 | W.PN.ONC ---
Today's Communication / Plan
-
05/24/24 direct platelet antibody IgM positive
Platelets have improved to 48,000 today
s/p 1unit PLTs
Dexamethasone 40 mg PO QD x 4days completed
Transition to Prednisone 60mg daily to be tapered 10-14 days
Continue PPI - Omeprazole 20mg daily
Discussed use of Pepcid PRN for acute GERD symptoms while on steroids
Continue bleeding precautions
Discharge planning
CBC Mon 05/29 to be reviewed with our office
Follow up to be arranged with [facility] for continued monitoring.
Impression
Impression
ITP
normocytic anemia
Subjective/Objective
Subjective/Objective
patient is sitting up in the chair. she offers no complaints and is eager for discharge home.
Vital Signs:
Vital Signs
Temp Pulse Resp BP Pulse Ox
98.0 F 70 16 177/82 94
05/26/24 07:00 05/26/24 08:04 05/26/24 07:00 05/26/24 08:04 05/26/24 07:00
physical exam unchanged.
Lab Results:
Laboratory Data
WBC 10.6 10^3/uL (4.8-10.8) 05/26/24 07:40
Hgb 10.9 g/dL (12.0-16.0) L 05/26/24 07:40
Plt Count 48 10^3/uL (130-400) L D 05/26/24 07:40
PT 14.1 Sec (11.4-14.6) 05/23/24 17:48
INR 1.10 05/23/24 17:48
APTT 27.5 Sec (23.4-35.0) 05/23/24 17:48
eGFR > 60.00 05/24/24 08:12
[2024-05-26 11:14] VITALS: BP 117/70
--- NOTE | 2024-05-26 12:41 | W.DCSUMMARY ---
Discharge Summary
Discharge Data
Date of Admission: 05/23/24
Date of Discharge: 05/26/24
-
Pending Results: No
Hospital Course
Discharging Physician : Dr. Marilyn Contreras
Disposition : Home
Primary care physician : Dr. Feli Guzman
Principal Discharge diagnosis : Idiopathic Thrombocytopenic Purpura
Hospital Course :
Ms. Lelia Vasquez is a 88 yo woman with hx essential HTN, HLD, Noel's esophagitis, recent ER Visit for PALMER presents to the ER with rash and spitting up blood. Triage vitals significant for hypertension. Labs with PLT count 2. WBC 4, Hg 10.9.
She was admitted to medicine with Hematology consulting for thrombocytopenia, most likely diagnosis ITP. She was started on Decadron 40mg and received her 4 day course in the hospital. Direct platelet antibody IgM positive. PLT improved to 48 on
day of discharged. Per Hematology recommendations, she is discharged on a prednisone taper. She will follow up closely as outpatient with repeat labs on Wednesday.
Time spent on discharge was 35 minutes.
Important imaging findings :
Procedure findings :
Discharge Plan
-
Patient Disposition: Home (Routine Discharge)
Discharge Diagnosis/Procedures: thrombocytopenia; Immune thrombocytopenic purpura
Diet: Regular
Activity: As tolerated
Driving Restrictions: As prior to admission
Bathing Restrictions: None
Referrals:
Kayy Grady MD [Active] - None
Feli Guzman, [Family Provider] - in less than 1 week
Lalit Stein MD [Active] - in one to two weeks
Additional Discharge Medication Instructions: Prednisone Taper:
Take 60mg (6 tabs) x 2 days; 50mg (5 tabs) x 2 days; 40mg (4 tabs) x 2 days; 30mg (3tabs) x 2 days; 20mg (2 tabs) x2 days: then 10mg (1 tab) x 2 days
Do not take aspirin or NSAIDs (advil, motrin, aleve, ibuprofen etc).
Prescriptions:
New
prednisone 10 mg tablet
10 mg PO DIRECTED Qty: 42 0RF
Rx Instructions:
60mg(6 tabs)x2 days; 50mg(5 tabs)x2days; 40mg(4 tabs)x2 days; 30mg x2 days; 20mg x2 days: then 10mg x2 days
Continued
atorvastatin 10 MG tablet
10 mg PO DAILY
diltiazem HCl [Tiadylt ER] 240 MG capsule,extended release 24 hr
240 mg PO DAILY
Prolia 60 MG/ML syringe
60 mg SC [id number]
PreserVision AREDS-2 1 EACH capsule
1 cap PO DAILY
clobetasol 0.05 % Cream
1 applic TOPICAL .2X WEEKLY
estradiol 0.01 % (0.1 mg/gram) Cream
1 g VAGINAL .2X WEEKLY
Systane (PF) 0.4-0.3 % Dropperette
1 drp BOTH EYES BID
cyanocobalamin (vitamin B-12) 1,000 mcg Tablet
2,000 mcg PO Q48H
omeprazole 20 mg Capsule,Delayed Release(Dr/Ec)
20 mg PO DAILY
fluticasone propionate 50 mcg/actuation [place],Suspension
2 spray INTRANASAL DAILY
Rx Instructions:
EACH NOSTRIL
Debrox 6.5 % Drops
5 drp EACH EAR WEEKLY
losartan 100 mg tablet
100 mg PO DAILY
loratadine [Claritin] 10 mg Tablet
10 mg PO DAILY
cholecalciferol (vitamin D3) 50 mcg (2,000 unit) Tablet
50 mcg PO DAILY
cranberry 450 mg Tablet
450 mg PO DAILY
Discontinued
ibuprofen 400 mg tablet
400 mg PO Q8HPRN PRN (Reason: mild pain)
Discharge Orders:
Discharge Patient (As Directed); Ordered 05/26/24
Ordered By: Marilyn Contreras
Discharge Date and Time
Discharge Date/Time: 05/26/24 11:39
Print Language: [id number]
== END 2024-05-26 11:39 | disposition home or self-care (01) | DRG 813 ==
LOC: 3 WEST ACU 19:26
PROVIDERS: Physician Assistant Medical; ADMITTING PHYSICIAN Student in an Organized Health Care Education/Training Program; EMERGENCY PHYSICIAN Emergency Medicine; FAMILY PHYSICIAN Family Medicine; OTHER PHYSICIAN Internal Medicine Hematology & Oncology
PROC: 30233R1 Transfusion of Nonautologous Platelets into Peripheral Vein, Percutaneous Approach (ICD-10-PCS; 2024-05-23)
DX: D69.3 Immune thrombocytopenic purpura (principal); R04.2 Hemoptysis; E22.2 Syndrome of inappropriate secretion of antidiuretic hormone; I16.0 Hypertensive urgency; I10 Essential (primary) hypertension; D64.9 Anemia, unspecified; E78.5 Hyperlipidemia, unspecified; K22.70 Barrett's esophagus without dysplasia; K21.9 Gastro-esophageal reflux disease without esophagitis; K44.9 Diaphragmatic hernia without obstruction or gangrene; K59.00 Constipation, unspecified; M81.0 Age-related osteoporosis without current pathological fracture; R04.0 Epistaxis; M54.9 Dorsalgia, unspecified; Z79.899 Other long term (current) drug therapy; Z87.440 Personal history of urinary (tract) infections; Z88.0 Allergy status to penicillin; Z88.1 Allergy status to other antibiotic agents; Z88.2 Allergy status to sulfonamides; Z88.5 Allergy status to narcotic agent
CPT/HCPCS: 36415; 80048; 80053; 82607; 82728; 83540; 83550; 83735; 83935; 84300; 85025; 85027; 85610; 85730; 86023; 86850; 86900; 86901; 97161; 97165; 99291; P9073

== ENCOUNTER → 2024-05-29 10:39 | Outpatient (REF) | payer MEDICARE, BC, SELFPAY ==
[2024-05-29 16:10] LABS: % Basophils 0.2 % (0-2); % Eosinophils 0.1 % (0-6); % Immature Granulocytes 4.3 % (0-0.5); % Lymphocytes 10.6 % (20.5-51.1); % Monocytes 9.9 % (1.7-9.3); % Neutrophils 74.9 % (42.2-75.2); Absolute Immature Granulocytes 0.4 10^3/uL (0-0.05); Absolute Monocytes 0.9 10^3/uL (0.1-0.6); Absolute Neutrophils 7.1 10^3/uL (1.4-6.5); Hematocrit 32.1 % (37.0-47.0); Mean Corp Hgb Conc. 34.3 g/dL (33.0-37.0); Mean Corpuscular Hgb 31.9 pg (27.0-31.0); Mean Platelet Volume 11.3 fL (7.4-10.4); Nucleated Red Blood Cells % 0 %; Platelet Count 41 10^3/uL (130-400); Red Blood Cell Count 3.45 10^6/uL (4.20-5.40); Red Cell Dist. Width 13.8 % (11.5-14.5); White Blood Cell Count 9.5 10^3/uL (4.8-10.8)
== END ==
LOC: HWLAB 10:39
PROVIDERS: ATTENDING PHYSICIAN Student in an Organized Health Care Education/Training Program; FAMILY PHYSICIAN Family Medicine; REFERRING PHYSICIAN Internal Medicine Hematology & Oncology
DX: D69.3 Immune thrombocytopenic purpura (principal)
CPT/HCPCS: 36415; 85025

== ENCOUNTER → 2024-06-05 09:42 | Outpatient (REF) | payer MEDICARE, BC, SELFPAY ==
[2024-06-05 12:41] LABS: Blood Urea Nitrogen 27 mg/dl (7-17); Calcium 8.6 mg/dl (8.4-10.2); Carbon Dioxide 25 mmol/L (22-30); Chloride 96 mmol/L (98-107); Glucose 101 mg/dl (70-99); Iron 116 ug/dl (37-170); Potassium 4.3 mmol/L (3.5-5.1); Sodium 126 mmol/L (135-145); eGFR > 60.00
[2024-06-05 12:49] LABS: Percent Saturation 44 % (20-50); Total Iron Binding Capacity 263 ug/dl (265-497)
[2024-06-05 13:06] LABS: % Basophils 0.1 % (0-2); % Eosinophils 0.4 % (0-6); % Lymphocytes 5.2 % (20.5-51.1); % Monocytes 9.1 % (1.7-9.3); % Neutrophils 84.2 % (42.2-75.2); Absolute Eosinophils 0.1 10^3/uL (0-0.7); Absolute Immature Granulocytes 0.2 10^3/uL (0-0.05); Absolute Lymphocytes 0.8 10^3/uL (1.2-3.4); Absolute Monocytes 1.3 10^3/uL (0.1-0.6); Absolute Neutrophils 12.4 10^3/uL (1.4-6.5); Hematocrit 32.5 % (37.0-47.0); Hemoglobin 11.3 g/dL (12.0-16.0); Mean Corp Hgb Conc. 34.8 g/dL (33.0-37.0); Mean Corpuscular Hgb 33.3 pg (27.0-31.0); Mean Corpuscular Volume 95.9 fL (81.0-99.0); Nucleated Red Blood Cells % 0 %; Platelet Count 2 10^3/uL (130-400); Red Blood Cell Count 3.39 10^6/uL (4.20-5.40); Red Cell Dist. Width 14.7 % (11.5-14.5); White Blood Cell Count 14.7 10^3/uL (4.8-10.8)
[2024-06-05 13:44] LABS: Folate > 20.0 ng/ml (2.76-20); Vitamin B12 > 1000 pg/ml (239-931)
[2024-06-05 13:57] LABS: Ferritin 68.6 ng/ml (11.1-264.0)
== END ==
LOC: HWLAB 09:42
PROVIDERS: ATTENDING PHYSICIAN Internal Medicine Hematology & Oncology; FAMILY PHYSICIAN Family Medicine
DX: D69.3 Immune thrombocytopenic purpura (principal); E87.1 Hypo-osmolality and hyponatremia; D69.6 Thrombocytopenia, unspecified
CPT/HCPCS: 36415; 80048; 82607; 82728; 82746; 83540; 83550; 85025

== ENCOUNTER 2024-06-07 19:14 | Inpatient (IN) | payer MEDICARE, BC, SELFPAY ==
[2024-06-07] VITALS (15 sets, daily range): BP systolic 112–190; BP diastolic 63–93; BMI 21.5; BMI 20.5
--- NOTE | 2024-06-07 18:08 | ED.GENMED ---
History of Present Illness
General
Chief Complaint: Abnormal Lab Value
Time Seen by Provider: 06/07/24 17:45
History of Present Illness
History of Present Illness:
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 Per chart review patient was discharged last week after she was admitted for ITP. On Wednesday she had routine blood work done that showed a
platelet count of 2. The increase her prednisone to 60 mg. Today she had a platelet count of 1. She discussed with her book repairer who recommended coming to the emergency department for transfusion. She has noticed a petechial rash. She
occasionally has a nosebleed. No bleeding from her gum. No hemoptysis. No fevers or chills. No nausea or vomiting. No hematemesis.
Past History
Past History
ED Past Medical History: GERD, HTN, Hypercholesterolemia and Other (Back pain, Barrets esophagus, hiatal hernia)
ED Past Surgical History: Gynecological (Breast biopsy) and Other (Bladder surgery, vein stripping cataracts)
Social History
Tobacco: Non-smoker
Alcohol: None
Drug: None
Personal:
Living: alone
Employment: Retired
Phy Exam
Physical Exam
Physical Exam:
GENERAL: in no acute distress
HEENT: normocephalic, extraocular movements intact, moist oral mucosa
NECK: normal inspection
RESPIRATORY: no respiratory distress, clear to auscultation bilaterally
CARDIOVASCULAR: regular rate and rhythm
ABDOMEN/: soft, non-distended, non-tender to palpation, no rebound or guarding
EXTREMITIES: non-tender, no edema/swelling, petechial rash diffusely with bruises in different stages of healing of the upper extremities
NEUROLOGIC: awake and alert, moves all extremities
SKIN: warm
Course
Orders/Labs/Results
Orders:
Orders
06/07/24 18:06
Blood Bank Products [* Blood Bank Products] Urgent
Blood Bank Products: Platelets Leukoreduced
Quantity: 1
Transfuse Today: Yes
Reason: Thrombocytopenia
Vital Signs
Initial and Last Documented VS:
Initial Vital Signs
Temp Pulse Resp BP Pulse Ox
98.7 F 88 18 117/70 99
06/07/24 14:09 06/07/24 14:09 06/07/24 14:09 06/07/24 14:09 06/07/24 14:09
Last Documented Vital Signs
Temp Pulse Resp BP Pulse Ox
98.7 F 88 18 117/70 99
06/07/24 14:09 06/07/24 14:09 06/07/24 14:09 06/07/24 14:09 06/07/24 14:09
MDM/Problems Addressed
Differential Diagnosis Includes:
Patient is a 88-year-old with history of ITP presenting to the emergency department with a low platelet count. Vitals unremarkable and exam does show petechiae as well as bruising in stages of healing in her extremities. Concern for low platelet
count again. Blood work was completed this morning here that showed a platelet count of 1. I discussed with hematology who recommended transfusion as well as gammaglobulin when she is admitted. Discussed with hospitalist who accepted. Will order
for transfusion.
*Critical Care Note
Total Time (30-74mins, 75-104mins- exclusive of procedures): Not Applicable
ED Attending Note
-
Portions of this chart may have been created with voice recognition software.� Occasional wrong word or��sound alike� substitutions may have occurred due to the inherent limitations of voice recognition software.
Discharge Plan
Departure
Patient Disposition: Admit
Date of Disposition: 06/07/24
Time of Disposition: 18:10
Presentation/result/management discussed w/ accepting MD/DO: Hospitalist
Discharge Problem:
Thrombocytopenia
Prescriptions:
No Action
atorvastatin 10 MG tablet
10 mg PO DAILY
diltiazem HCl [Tiadylt ER] 240 MG capsule,extended release 24 hr
240 mg PO DAILY
Prolia 60 MG/ML syringe
60 mg SC [id number]
PreserVision AREDS-2 1 EACH capsule
1 cap PO DAILY
clobetasol 0.05 % Cream
1 applic TOPICAL .2X WEEKLY
estradiol 0.01 % (0.1 mg/gram) Cream
1 g VAGINAL .2X WEEKLY
Systane (PF) 0.4-0.3 % Dropperette
1 drp BOTH EYES BID
cyanocobalamin (vitamin B-12) 1,000 mcg Tablet
2,000 mcg PO Q48H
omeprazole 20 mg Capsule,Delayed Release(Dr/Ec)
20 mg PO DAILY
fluticasone propionate 50 mcg/actuation [place],Suspension
2 spray INTRANASAL DAILY
Rx Instructions:
EACH NOSTRIL
Debrox 6.5 % Drops
5 drp EACH EAR WEEKLY
losartan 100 mg tablet
100 mg PO DAILY
loratadine [Claritin] 10 mg Tablet
10 mg PO DAILY
cholecalciferol (vitamin D3) 50 mcg (2,000 unit) Tablet
50 mcg PO DAILY
cranberry 450 mg Tablet
450 mg PO DAILY
prednisone 10 mg tablet
10 mg PO DIRECTED Qty: 42 0RF
Rx Instructions:
60mg(6 tabs)x2 days; 50mg(5 tabs)x2days; 40mg(4 tabs)x2 days; 30mg x2 days; 20mg x2 days: then 10mg x2 days
Referrals:
Feli Guzman DO [Family Provider] -
Interventions
Interventions:
*Risk Screen - Suicide Last Done: 06/07/24 17:51
*General Assessment Last Done: 06/07/24 17:51
*Neglect/Abuse Screening Last Done: 06/07/24 17:51
ED- Fall Risk Assessment Last Done: 06/07/24 17:51
*ED COVID-19 Vaccine History Last Done: 06/07/24 17:51
Discharge Date and Time
Print Language: IRAQI
--- NOTE | 2024-06-07 18:20 | HPS.HSE ---
Addendum entered and electronically signed by Sukumar Monroy MD 06/07/24 19:56:
Hospitalized 05/23-07/11 with ITP Was treated with plt improving from 2-->48k and was dc on Prednisone taper. Follow up labs demonstrated plt now 1k and was told to return to [facility]
Pt seen independently and agree with LOAN PROCESSOR note
Lungs clear
CV reg
Ext no edema
skin multiple ecchymotic areas
Imp: severe ITP
P:pt to receive plt now
steroids, IVIG as per Heme
Heme consult
Original Note:
Family Physician
-
Family Physician: Feli Guzman
Chief Complaint
-
PLT 1
History of Present Illness
88-year-old female with recent admission 05/23 - 05/26/2024 for ITP with platelets of 2 > 48 post Decadron 40 mg x 4 days, 1 unit platelet transfusion. She was discharged on prednisone taper 60 mg x 2 days to decrease by 10 mg daily to stop on
06/08/2024. The patient Had outpatient routine labs 2 days ago 06/05/2024 with hematology showing a platelet count of 1. Her prednisone was increased from 10 mg back to 60 mg. Today had platelet count of 1 again and was advised to come to ER for
evaluation she does report a petechial rash with bruises to body since 05/23/2024. Patient reports has been treated entire month of April to antibiotics for chronic UTIs found to have E. coli with possible colonization. She reports slight headache
constant. She denies nosebleeds, hemoptysis, vaginal bleeding, rectal bleeding, urinary bleeding, chest pain, palpitations, shortness breath, cough, abdominal pain, nausea, vomiting, diarrhea.
She has past medical history HTN, HLD, Noel's esophagus, normocytic anemia,
Medical History
Past Medical History
Past Medical History: Reports Other (essential HTN, HLD, Noel's esophagitis)
Additional Past Medical History:
ITP Dx 05/23/2024
Chronic UTIs with E. coli colonization
Chronic urinary incontinence
Past Surgical History: Reports Other
Social History
Tobacco: Non-smoker
Alcohol: None
Family History
Family History: Not pertinent
Allergies / Home Medications
Allergies reflects when Allergies were last updated in [facility].
Home Medications with original date entered in [facility]
Allergy/Medication List:
Allergies
Allergy/AdvReac Type Severity Reaction Status Date / Time
amoxicillin Allergy Rash Verified 05/23/24 16:53
cefuroxime [From Ceftin] Allergy reaction - Verified 05/23/24 18:17
diarrhea
codeine Allergy Vomiting Verified 05/23/24 16:53
hydrochlorothiazide Allergy Vomiting Verified 05/23/24 16:53
minocycline Allergy Vomiting Verified 05/23/24 16:53
morphine Allergy Vomiting Verified 05/23/24 16:53
oxycodone [From Percocet] Allergy Vomiting Verified 05/23/24 16:53
propoxyphene Allergy Vomiting Verified 05/23/24 16:53
[From Darvocet-N]
Sulfa (Sulfonamide Allergy Swelling Verified 05/23/24 16:53
Antibiotics)
Home Medications
atorvastatin 10 mg tablet 10 mg PO DAILY High cholesterol 10/13/14
denosumab 60 mg/mL subcutaneous syringe (Prolia) 60 mg SC [id number] osteoporosis 10/12/20
diltiazem HCl 240 mg capsule,24 hr,extended release (Tiadylt ER) 240 mg PO DAILY Blood pressure 10/12/20
vit C 250 mg-vit E 90 mg-zinc 40 mg-copper 1 [id number] capsule (PreserVision AREDS-2) 1 cap PO DAILY Supplement 10/12/20
clobetasol 0.05 % topical cream 1 applic topical .2X WEEKLY Skin Issues 05/07/22
estradiol 0.01% (0.1 mg/gram) vaginal cream 1 g vaginal .2X WEEKLY Hormonal Agent 05/07/22
peg 400-propylene glycol (PF) 0.4 %-0.3 % eye drops in a dropperette (Systane (PF)) 1 drp BOTH EYES BID dry eyes 05/07/22
cyanocobalamin (vitamin B-12) 1,000 mcg tablet 2,000 mcg PO Q48H Supplement 05/17/24
omeprazole 20 mg capsule,delayed release 20 mg PO DAILY Gastrointestinal Issue 05/17/24
carbamide peroxide 6.5 % ear drops (Debrox) 5 drp EACH EAR WEEKLY ear wax removal 05/23/24
cholecalciferol (vitamin D3) 50 mcg (2,000 unit) tablet 50 mcg PO DAILY Supplement 05/23/24
cranberry fruit 450 mg tablet (cranberry) 450 mg PO DAILY Supplement 05/23/24
losartan 100 mg tablet 100 mg PO DAILY Blood Pressure 05/23/24
prednisone 20 mg tablet 60 mg PO DAILY 06/07/24
Review of Systems
-
History Source: Patient and Family
A 12 point ROS was completed and negative except as noted: Yes
Constitutional: Denies Fever
EENT: Denies Sore Throat or Runny Nose
Respiratory: Denies Cough or Trouble Breathing
Cardiac: Denies Chest Pain, Diaphoresis, Palpitations or Syncope
Abdomen/GI: Denies Abdominal Pain, Nausea, Vomiting, Diarrhea or Constipated
: Reports Incontinence (Chronic urinary); Denies Dysuria, Frequency, Flank Pain, Difficulty Voiding, Urgency or Bleeding
Musculoskeletal: Denies Joint Pain or Edema
Skin: Reports Rash (Generalized petechial rash with scattered bruising arms legs trunk, bruise to left side tip of tongue); Denies Itching
Neurological: Reports Headache; Denies Dizzy or Weakness
Endocrine: Reports No Symptoms
Hematologic/Lymphatic: Reports No Symptoms
Psych: Reports Calm
Physical Exam
Vital Signs
Vital Signs
Temp Pulse Resp BP Pulse Ox
98.7 F 79 23 179/79 94
06/07/24 14:09 06/07/24 18:15 06/07/24 18:15 06/07/24 18:15 06/07/24 18:04
Physical Exam
General: No Apparent Distress, Comfortable and Conversant; No Pain, Fever or Chills
HEENT: NormoCephalic, Anicteric, Moist mucous membranes, PERRLA, [place] Conjunctivae and Other (Bruise left side tip of tongue)
Respiratory: Clear; No Wheezes, Rales or Rhonchi
Cardiac: S1/S2 and Regular Rhythm; No Murmur, Rub or Gallop
Breast: Deferred by me
GI: Soft, Non Tender, Non Distended, Normal Bowel Sounds and No Hepatosplenomegaly
Rectal: Deferred by Provider
Genito-urinary: Deferred by me
Musculoskeletal: No Clubbing, No Cyanosis and No Edema
Skin: Warm, Dry and Rash (Generalized petechial rash with scattered bruising arms legs trunk, bruise to left side tip of tongue)
Neuro: AO x 3, No Motor Deficits, Nonfocal/grossly intact, Cranial Nerves Intact and No Sensory Deficits; No Slurred Speech, Facial Droop or Tremors
Psych: Calm
Data Reviewed
-
Lab Data: Labs Reviewed by me
Impression/Plan
-
Impression/plan:
Admit to [facility]
#Acute Severe thrombocytopenia-PLT 1 likely ITP
#Recent admission 05/23 - 05/26/2024 thrombocytopenia likely ITP with PLT 2 > 48 post Decadron x 4 days status post 1 unit platelet was discharged on prednisone until 06/08/2024
-Direct platelet antibody IgM positive recent admission
Plt level 1 earlier today outpatient labs,
Hgb 11.3, WBC 13.6
-Consult Hematology
-Gammaglobulin 0.4 g/kg max 35G x [address] Delacruz
-Platelets 1 unit transfused
-Change oral prednisone to Decadron 40 mg IV daily
- Recent Decadron 40 mg x 4 days then prednisone taper starting 05/27/24 was To stop on 06/08/2024(60 Mg x 2 days decrease 10 mg daily to 10 x 2 then stop)
-Has been on recent prednisone 60 mg times last 2 days with no improvement in platelets
-NO NSAIDs or aspirin
Chronic UTIs-E. coli
-Believed to be colonized with E. coli
Chronic urinary incontinence-patient does outpatient pelvic floor therapy
Treated entire April x 2 antibiotics reports last urine specimen was May 15
#Normocytic anemia
Hgb 11.3 stable
-Continue B12 supplement
#HTN�benign
BP 117/70
-Continue diltiazem to 40 mg daily with hold parameters, losartan 100 mg daily
#HLD
-Continue atorvastatin 10 mg daily
#Noel's esophagus
-Continue omeprazole 20 mg daily
#Seasonal allergies
-Continue Claritin 10 mg daily, fluticasone nasal
Osteoporosis
Gets Prolia injections SQ every 6 months, continue vitamin D
DVT prophylaxis
Platelets of 1 no current indication
Full code
[2024-06-07 18:32] LABS: % Basophils 0.1 % (0-2); % Immature Granulocytes 1.5 % (0-0.5); % Lymphocytes 6.6 % (20.5-51.1); % Monocytes 4.7 % (1.7-9.3); % Neutrophils 87.1 % (42.2-75.2); Absolute Immature Granulocytes 0.2 10^3/uL (0-0.05); Absolute Lymphocytes 0.7 10^3/uL (1.2-3.4); Absolute Monocytes 0.5 10^3/uL (0.1-0.6); Absolute Neutrophils 9.7 10^3/uL (1.4-6.5); Hematocrit 31.1 % (37.0-47.0); Hemoglobin 11.1 g/dL (12.0-16.0); Mean Corp Hgb Conc. 35.7 g/dL (33.0-37.0); Mean Corpuscular Hgb 32.8 pg (27.0-31.0); Nucleated Red Blood Cells % 0 %; Platelet Count 1 10^3/uL (130-400); Red Blood Cell Count 3.38 10^6/uL (4.20-5.40); Red Cell Dist. Width 15.1 % (11.5-14.5); White Blood Cell Count 11.1 10^3/uL (4.8-10.8)
[2024-06-07 18:46] LABS: ALT (SGPT) 28 U/L (0-35); AST (SGOT) 25 U/L (14-36); Albumin 3.5 g/dl (3.5-5.0); Alkaline Phosphatase 89 U/L (38-126); Blood Urea Nitrogen 28 mg/dl (7-17); Calcium 8.6 mg/dl (8.4-10.2); Carbon Dioxide 26 mmol/L (22-30); Chloride 99 mmol/L (98-107); Estimated Creatinine Clearance 32 ml/min; Glucose 106 mg/dl (70-99); Potassium 4.9 mmol/L (3.5-5.1); Sodium 131 mmol/L (135-145); Total Bilirubin 0.4 mg/dl (0.2-1.3); Total Protein 5.7 g/dl (6.3-8.2); eGFR > 60.00
[2024-06-07 19:45] LABS: Urine Albumin Trace (Neg - Trace); Urine Bilirubin Negative (Negative); Urine Character Clear (Clear); Urine Color Yellow; Urine Glucose 2+ (Negative); Urine Ketone Negative (Negative); Urine Leukocyte 2+ (Negative); Urine Nitrite Positive (Negative); Urine Occult Blood Negative (Negative); Urine Specific Gravity 1.015 (<1.030); Urine Urobilinogen Negative (Neg - 1+)
--- NOTE | 2024-06-07 20:10 | PTCARENOTE ---
Pt arrived from ED via stretcher and ambulated to bed w/ family members at bedside. Pt is AAOx3, VSS, and w/o complaints of pain. Pt is resting comfortably w/ call milligan within reach.
[2024-06-07 20:14] LABS: Urine Bacteria Many (Negative); Urine Calcium Oxalate Crystals Present; Urine Red Blood Cell 0-2 /HPF (0-2); Urine Squamous Cell 16-20 /LPF (Few)
[2024-06-07 20:15] LABS: Urine White Cell >100 /HPF (0-5)
[2024-06-07] MEDS: GAMMAGARD 200 IV (20:53)
[2024-06-07] MEDS: REFRESH EYE DROPS (PF) 1 DROPS BOTH EYES (21:39)
[2024-06-07] MEDS: COZAAR 100 MG PO (23:06)
[2024-06-08] VITALS (10 sets, daily range): BP systolic 118–171; BP diastolic 56–78
[2024-06-08] MEDS: DECADRON 60 MG IV (00:02)
[2024-06-08 07:31] LABS: Blood Urea Nitrogen 24 mg/dl (7-17); Carbon Dioxide 22 mmol/L (22-30); Chloride 102 mmol/L (98-107); Estimated Creatinine Clearance 41 ml/min; Glucose 119 mg/dl (70-99); Potassium 4.1 mmol/L (3.5-5.1); Sodium 130 mmol/L (135-145); eGFR > 60.00
[2024-06-08 07:36] LABS: % Basophils 0.1 % (0-2); % Immature Granulocytes 2.2 % (0-0.5); % Lymphocytes 4.5 % (20.5-51.1); % Monocytes 3.5 % (1.7-9.3); % Neutrophils 89.7 % (42.2-75.2); Absolute Immature Granulocytes 0.2 10^3/uL (0-0.05); Absolute Lymphocytes 0.4 10^3/uL (1.2-3.4); Absolute Monocytes 0.3 10^3/uL (0.1-0.6); Absolute Neutrophils 8.5 10^3/uL (1.4-6.5); Hematocrit 27.9 % (37.0-47.0); Hemoglobin 9.8 g/dL (12.0-16.0); Mean Corp Hgb Conc. 35.1 g/dL (33.0-37.0); Mean Corpuscular Hgb 33.3 pg (27.0-31.0); Mean Corpuscular Volume 94.9 fL (81.0-99.0); Nucleated Red Blood Cells % 0 %; Platelet Count 3 10^3/uL (130-400); Red Blood Cell Count 2.94 10^6/uL (4.20-5.40); White Blood Cell Count 9.4 10^3/uL (4.8-10.8)
--- NOTE | 2024-06-08 08:21 | CON.ONC ---
Impression
Impression
Severe ITP
Petechial rash
Plan
Plan
06/08 Hgb 9.8, Hct 27.9, PLT 3
s/p 1unit PLTs
Transfuse PRN to maintain PLT >10
Bleeding precautions
Monitor bruising/petechial rash
Continue Dexamethasone 40 mg IV daily
Continue IVIG daily
Continue PPI
Begin Promacta 50mg daily
Daughter will be picking up Rx today from [place] and bringing to the hospital
We will follow.
Patient History
History of Present Illness
Lelia Vasquez is an 88 year old female known to Dr. Stein with [facility]. She had recently been hospitalized 05/23/24-05/26/24 with ITP. She was discharged with PLT count of 48. Outpatient labs yesterday, 06/07, revealed PLT count of 1. She was
instructed to proceed to the ER due to critical level. She had been taking 60mg Prednisone daily and awaiting Promacta. She reported a new petechial rash and intermittent nose bleeds. She received 1unit platelets yesterday. Dr. Delacruz has ordered
Decadron 40mg daily, IVIG.
Past-Medical/Surgical History
ITP
Recurrent UTI
Urinary incontinence
Hypertension
Hyperlipidemia
Noel's esophagitis
GERD
Patient Medication
�Medication �Instructions �Recorded �Confirmed �Last Taken �Type
atorvastatin 10 mg tablet 10 mg PO DAILY High cholesterol 10/13/14 06/07/24 06/07/24 History
denosumab 60 mg/mL subcutaneous 60 mg SC [id number] osteoporosis 10/12/20 06/07/24 Unknown History
syringe (Prolia)
diltiazem HCl 240 mg capsule,24 240 mg PO DAILY Blood pressure 10/12/20 06/07/24 06/07/24 History
hr,extended release (Tiadylt ER)
vit C 250 mg-vit E 90 mg-zinc 40 1 cap PO DAILY Supplement 10/12/20 06/07/24 06/07/24 History
mg-copper 1 [id number]
capsule (PreserVision AREDS-2)
clobetasol 0.05 % topical cream 1 applic topical .2X WEEKLY Skin 05/07/22 06/07/24 Unknown History
Issues
estradiol 0.01% (0.1 mg/gram) 1 g vaginal .2X WEEKLY Hormonal 05/07/22 06/07/24 Unknown History
vaginal cream Agent
peg 400-propylene glycol (PF) 0.4 1 drp BOTH EYES BID dry eyes 05/07/22 06/07/24 06/07/24 History
%-0.3 % eye drops in a dropperette
(Systane (PF))
cyanocobalamin (vitamin B-12) 2,000 mcg PO Q48H Supplement 05/17/24 06/07/24 Unknown History
1,000 mcg tablet
omeprazole 20 mg capsule,delayed 20 mg PO DAILY Gastrointestinal 05/17/24 06/07/24 06/07/24 History
release Issue
carbamide peroxide 6.5 % ear drops 5 drp EACH EAR WEEKLY ear wax 05/23/24 06/07/24 05/19/24 History
(Debrox) removal
cholecalciferol (vitamin D3) 50 50 mcg PO DAILY Supplement 05/23/24 06/07/24 06/07/24 History
mcg (2,000 unit) tablet
cranberry fruit 450 mg tablet 450 mg PO DAILY Supplement 05/23/24 06/07/24 06/07/24 History
(cranberry)
losartan 100 mg tablet 100 mg PO HS Blood Pressure 05/23/24 06/07/24 06/06/24 History
prednisone 20 mg tablet 60 mg PO DAILY Anti-Inflammatory 06/07/24 06/07/24 06/07/24 History
Active Medications
Generic Name Dose Route Start Last Admin
Trade Name Freq PRN Reason Stop Dose Admin
Acetaminophen 650 mg 06/07/24 19:53
Acetaminophen 325 Mg Tablet PO 07/05/24 19:52
Q4HPRN PRN
mild pain/PALMER/temp> 100.4F
Artificial Tears 1 drops 06/07/24 20:00 06/07/24 21:39
Artificial Tears Pf (Refresh) 10 Drop Droperette BOTH EYES 07/05/24 19:59 1 drops
BID HUGO Administration
Atorvastatin Calcium 10 mg 06/08/24 08:00
Atorvastatin (Lipitor) 10 Mg Tablet PO 07/06/24 07:59
DAILY HUGO
Cholecalciferol 50 mcg 06/08/24 08:00
Cholecalciferol (Vitamin D3) 50 Mcg Tablet (2,000 Units) PO 07/06/24 07:59
DAILY HUGO
Cyanocobalamin 2,000 mcg 06/08/24 08:00
Cyanocobalamin 1,000 Mcg Tablet PO 07/06/24 07:59
Q48H HUGO
Diltiazem HCl 240 mg 06/08/24 08:00
Diltiazem 240 Mg Extended Release (24 H) Capsule PO 07/06/24 07:59
DAILY HUGO
Estradiol 0 applic 06/08/24 22:00
Estradiol 0.01% (Vaginal Cream) 42.5 Gram Tube VAG 07/06/24 21:59
TuTh@2200 HUGO
Immune Globulin 20 gram in 200 mls @ 0 mls/hr 06/07/24 20:00 06/07/24 20:53
Gammagard IV 06/10/24 20:01 200 mls
Q24H HUGO Administration
Protocol
Per Protocol
Dexamethasone Sodium Phosphate 60 mls @ 240 mls/hr 06/07/24 20:00 06/08/24 00:02
40 mg/ Sodium Chloride IV 06/11/24 00:14 60 mls
Q24H HUGO Administration
Losartan Potassium 100 mg 06/07/24 22:00 06/07/24 23:06
Losartan 100 Mg Tablet PO 07/05/24 21:59 100 mg
HS HUGO Administration
Pantoprazole Sodium 40 mg 06/08/24 08:00
Pantoprazole 40 Mg Delayed Release Tablet PO 07/06/24 07:59
DAILY HUGO
Sodium Chloride 0 flush 06/07/24 20:00
Sodium Chloride 0.9% (Flush) Syringe IV 07/05/24 19:59
PER PROTOCOL HUGO
Vitamin C/Vitamin E 1 cap 06/08/24 08:00
Vit C/Vit E/Lutein/Min/[place]-3 (Ocuvite) Capsule PO 07/06/24 07:59
DAILY HUGO
Review of Systems
-
History Source: Patient, Coordinated Provider and Records
Constitutional: Reports No Symptoms
EENT: Reports No Symptoms
Respiratory: Reports No Symptoms
Cardiac: Reports No Symptoms
GI: Reports No Symptoms
Breast: Reports N/A
: Reports No Symptoms
Musculoskeletal: Reports No Symptoms
Skin: Reports Rash
Neuro: Reports No Symptoms
Endocrine: Reports No Symptoms
Hematologic/Lymphatic: Reports Bruising
Allergy / Immunology: Reports No Symptoms
Psych: Reports No Symptoms
Physical Exam
-
patient OOB x1 assist to the bathroom. nursing at bedside. patient denies pain. she notes significant bruising to arms.
General: No Apparent Distress, Comfortable and Conversant
HEENT: Negative Jaundice
Cardiology: Normal Sinus Rhythm
Pulmonary: Clear
GI: Soft and Normal Bowel Sounds
Genito-Urinary: No Costovertebral Tenderness
Musculoskeletal: No Edema
Extremities: Pulses Present
Neurology: Non Focal
Skin: Warm, Dry, Rash and Other (ecchymosis LUE); Negative No Ecchymosis
Hematologic / Lymphatic: Other (petechial rash RUE/forearm )
Psych: Calm
Labs
Lab Results
WBC 9.4 10^3/uL (4.8-10.8) 06/08/24 06:46
RBC 2.94 10^6/uL (4.20-5.40) L 06/08/24 06:46
Hgb 9.8 g/dL (12.0-16.0) L 06/08/24 06:46
Hct 27.9 % (37.0-47.0) L 06/08/24 06:46
MCV 94.9 fL (81.0-99.0) 06/08/24 06:46
MCH 33.3 pg (27.0-31.0) H 06/08/24 06:46
MCHC 35.1 g/dL (33.0-37.0) 06/08/24 06:46
RDW 15.0 % (11.5-14.5) H 06/08/24 06:46
Plt Count 3 10^3/uL (130-400) L* D 06/08/24 06:46
MPV Not Reportable 06/08/24 06:46
Abs Immat Gran (auto) 0.2 10^3/uL (0-0.05) H 06/08/24 06:46
Absolute Neuts (auto) 8.5 10^3/uL (1.4-6.5) H 06/08/24 06:46
Absolute Lymphs (auto) 0.4 10^3/uL (1.2-3.4) L 06/08/24 06:46
Absolute Monos (auto) 0.3 10^3/uL (0.1-0.6) 06/08/24 06:46
Absolute Eos (auto) 0.0 10^3/uL (0-0.7) 06/08/24 06:46
Absolute Basos (auto) 0.0 10^3/uL (0-0.2) 06/08/24 06:46
Immature Gran % 2.2 % (0-0.5) H 06/08/24 06:46
Neutrophils % 89.7 % (42.2-75.2) H 06/08/24 06:46
Lymphocytes % 4.5 % (20.5-51.1) L 06/08/24 06:46
Monocytes % 3.5 % (1.7-9.3) 06/08/24 06:46
Eosinophils % 0.0 % (0-6) 06/08/24 06:46
Basophils % 0.1 % (0-2) 06/08/24 06:46
Creatinine 0.7 mg/dL (0.6-1.0) 06/08/24 06:46
Vital Signs
Vital Signs
Temp Pulse Resp BP Pulse Ox
98.1 F 79 16 145/68 98
06/07/24 23:34 06/07/24 23:56 06/07/24 23:34 06/07/24 23:56 06/07/24 23:34
[2024-06-08] MEDS: PROTONIX 40 MG PO (08:58)
[2024-06-08] MEDS: LIPITOR 10 MG PO (08:58)
[2024-06-08] MEDS: CARDIZEM CD 240 MG PO (08:58)
[2024-06-08] MEDS: VITAMIN B-12 2000 MCG PO (08:58)
[2024-06-08] MEDS: VITAMIN D3 (cholecalciferol) 50 MCG PO (08:58)
[2024-06-08] MEDS: REFRESH EYE DROPS (PF) 1 DROPS BOTH EYES ×2 (08:58→22:11)
[2024-06-08] MEDS: OCUVITE SOFTGEL 1 CAP PO (08:59)
[2024-06-08] MEDS: NON-FORMULARY ITEM 50 MG PO (12:58)
--- NOTE | 2024-06-08 13:25 | CM ---
CM met with Lelia at bedside today to complete IA. Lelia lives alone in a second floor condo with 12 entry steps. She reports that she is (I) amb and adls, uses no DME (although does have a walker at home), drives, and completes all cooking,
cleaning, laundry, food shopping. Lelia has a supportive daughter who lives nearby and reports no discharge needs at this time. Hx of HRVN in the past, none current.
Plan: CM will continue to follow to facilitate d/c planning needs as identified during continued hospitalization.
PCP: Feli Guzman
Pharmacy: [facility]
--- NOTE | 2024-06-08 13:58 | W.PN.HOSP.TC ---
Today's Communication/Plan
-
Promacta to be added
Assessment / Plan
Assessment / Plan
#Acute Severe thrombocytopenia-PLT with trivial improvement in ct post plt transfusion
#Recent admission 05/23 - 05/26/2024 thrombocytopenia likely ITP with PLT 2 > 48 post Decadron x 4 days status post 1 unit platelet was discharged on prednisone until 06/08/2024
-Direct platelet antibody IgM positive recent admission
Promacta 50 mg arrived to the Heme office and will be brought to hospital by dgt.
Hgb 11.1-->9.8 WBC 11.1-->9.4
-Consult Hematology
-Gammaglobulin 0.4 g/kg max 35G x [address] Delacruz
-Platelets 1 unit transfused at time of this admission
-Changed oral prednisone to Decadron 40 mg IV daily
- Recent Decadron 40 mg x 4 days then prednisone taper starting 05/27/24 was To stop on 06/08/2024(60 Mg x 2 days decrease 10 mg daily to 10 x 2 then stop)
-Has been on recent prednisone 60 mg times last 2 days with no improvement in platelets
-NO NSAIDs or aspirin
Chronic UTIs-E. coli
-Believed to be colonized with E. coli
Chronic urinary incontinence-patient does outpatient pelvic floor therapy
Treated entire April x 2 antibiotics reports last urine specimen was May 15
Ur C&S obtained on admission, Gm neg bacilli further data pending
#Normocytic anemia
Hgb 11.3 stable
-Continue B12 supplement
#HTN�benign
BP 117/70
-Continue diltiazem to 240 mg daily with hold parameters, losartan 100 mg daily
#HLD
-Continue atorvastatin 10 mg daily
#Noel's esophagus
-Continue omeprazole 20 mg daily
#Seasonal allergies
-Continue Claritin 10 mg daily, fluticasone nasal
Osteoporosis
Gets Prolia injections SQ every 6 months, continue vitamin D
DVT prophylaxis
Platelets of 1 no current indication
Full code
Anticipated Discharge: > 48 hours
Subjective/Interval History
-
Date of Service: June 08, 2024
Awake, alert
Objective Data
-
Labs:
Laboratory Results
06/08/24
06:46
WBC 9.4
Hgb 9.8 L
Hct 27.9 L
Plt Count 3 L* D
Sodium 130 L
Potassium 4.1
Chloride 102
Carbon Dioxide 22
BUN 24 H
Creatinine 0.7
Glucose 119 H
Calcium 8.0 L
Vital Signs:
Vital Signs
Temp Pulse Resp BP Pulse Ox
98 F 77 18 171/78 98
06/08/24 07:35 06/08/24 07:35 06/08/24 07:35 06/08/24 07:35 06/08/24 08:20
I&O
06/07/24 06/08/24 06/09/24
06:59 06:59 06:59
Intake Total 267 / 267
Balance 267 / 267
Review of Systems
-
History Source: Patient and Coordinated Provider
Constitutional: Denies Fever
EENT: Reports No Symptoms Reported
Respiratory: Reports No Symptoms; Denies Cough
Cardiac: Reports No Symptoms; Denies Chest Pain
Abdomen/GI: Reports No Symptoms; Denies Abdominal Pain
Genitourinary: Denies Dysuria or Frequency
Physical Exam
-
General: Well Developed, Well Nourished and No Apparent Distress
HEENT: Normocephalic, Atraumatic and Moist Mucous Membranes
Respiratory: Clear to Auscultation; Negative Wheezes, Rales or Rhonchi
Cardiac: Regular Rhythm and S1/S2
GI: Soft, Nontender and Nondistended
Musculoskeletal: No Clubbing, No Cyanosis and No Edema
Skin: Warm, Dry and Other (multiple eccymosis)
[2024-06-08] MEDS: GAMMAGARD 200 IV (20:57)
[2024-06-08] MEDS: COZAAR 100 MG PO (22:11)
[2024-06-09] VITALS (11 sets, daily range): BP systolic 126–164; BP diastolic 50–82
[2024-06-09] MEDS: DECADRON 60 MG IV (00:04)
[2024-06-09 05:33] LABS: Blood Urea Nitrogen 29 mg/dl (7-17); Calcium 8.2 mg/dl (8.4-10.2); Carbon Dioxide 26 mmol/L (22-30); Chloride 100 mmol/L (98-107); Estimated Creatinine Clearance 36 ml/min; Glucose 130 mg/dl (70-99); Potassium 4.6 mmol/L (3.5-5.1); Sodium 132 mmol/L (135-145); eGFR > 60.00
[2024-06-09 05:41] LABS: % Basophils 0.1 % (0-2); % Immature Granulocytes 1.5 % (0-0.5); % Lymphocytes 7.5 % (20.5-51.1); % Monocytes 3.6 % (1.7-9.3); % Neutrophils 87.3 % (42.2-75.2); Absolute Immature Granulocytes 0.1 10^3/uL (0-0.05); Absolute Lymphocytes 0.6 10^3/uL (1.2-3.4); Absolute Monocytes 0.3 10^3/uL (0.1-0.6); Absolute Neutrophils 7.5 10^3/uL (1.4-6.5); Hematocrit 26.7 % (37.0-47.0); Hemoglobin 9.4 g/dL (12.0-16.0); Mean Corp Hgb Conc. 35.2 g/dL (33.0-37.0); Mean Corpuscular Hgb 33.5 pg (27.0-31.0); Nucleated Red Blood Cells % 0.2 %; Platelet Count 8 10^3/uL (130-400); Red Blood Cell Count 2.81 10^6/uL (4.20-5.40); Red Cell Dist. Width 15.2 % (11.5-14.5); White Blood Cell Count 8.5 10^3/uL (4.8-10.8)
--- NOTE | 2024-06-09 05:43 | PTCARENOTE ---
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
[2024-06-09] MEDS: NON-FORMULARY ITEM 50 MG PO (07:02)
[2024-06-09] MEDS: PROTONIX 40 MG PO (07:03)
[2024-06-09] MEDS: LIPITOR 10 MG PO (08:56)
[2024-06-09] MEDS: REFRESH EYE DROPS (PF) 1 DROPS BOTH EYES (08:56)
[2024-06-09] MEDS: OCUVITE SOFTGEL 1 CAP PO (08:56)
[2024-06-09] MEDS: CARDIZEM CD 240 MG PO (08:56)
[2024-06-09] MEDS: VITAMIN D3 (cholecalciferol) 50 MCG PO (08:56)
--- NOTE | 2024-06-09 09:00 | W.PN.HOSP.TC ---
Today's Communication/Plan
-
continue IV steroids, Promacta, IVIG and follow counts
Assessment / Plan
Assessment / Plan
Assessment:
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
- direct platelet antibody IgM positive recent admission
- recent admission early May s/p Decadron and steroid course without improvement
- s/p 1 platelet transfusion
- now on IVIG, day 12/19
- also continue Decadron daily
- also continue Promacta
- follow Hematology recs
Chronic UTIs-E. coli
Chronic urinary incontinence-patient does outpatient pelvic floor therapy
- recent treated with Abx in April
- Believed to be colonized with E. coli
- no new symptoms currently; will hold off Abx for now
Normocytic anemia
- Hgb 11.3 stable
- Continue B12 supplement
HTN Essential
- continue diltiazem to 240 mg daily with hold parameters, losartan 100 mg daily
HLD
- continue atorvastatin 10 mg daily
Noel's esophagus
- continue omeprazole 20 mg daily
Seasonal allergies
- continue Claritin 10 mg daily, fluticasone nasal
Osteoporosis
- gets Prolia injections SQ every 6 months, continue vitamin D
DVT prophylaxis: ambulate
Code: Full
Anticipated Discharge: > 48 hours
Subjective/Interval History
-
Date of Service: June 09, 2024
no new complaints
denies UTI symptoms
platelets 8
Objective Data
-
Labs:
Laboratory Results
06/09/24
04:51
WBC 8.5
Hgb 9.4 L
Hct 26.7 L
Plt Count 8 L* D
Sodium 132 L
Potassium 4.6
Chloride 100
Carbon Dioxide 26
BUN 29 H
Creatinine 0.8
Glucose 130 H
Calcium 8.2 L
Vital Signs:
Vital Signs
Temp Pulse Resp BP Pulse Ox
97.8 F 76 18 164/75 97
06/09/24 07:05 06/09/24 07:05 06/09/24 07:05 06/09/24 07:05 06/09/24 08:15
I&O
06/08/24 06/09/24 06/10/24
06:59 06:59 06:59
Intake Total 267 / 267 600 / 600
Balance 267 / 267 600 / 600
Physical Exam
-
General: No Apparent Distress
HEENT: Normocephalic and Atraumatic
Respiratory: Negative Wheezes
Cardiac: Regular Rhythm; Negative S1/S2
GI: Soft
Genito-urinary: No Costovertebral Tender
Neuro: AO x 3
Hematologic / Lymphatic: No Lymphadenopathy
Psych: Calm
Data Reviewed
-
Total Time Spent with Patient (in minutes): 42
Labs: Labs Reviewed by me
--- NOTE | 2024-06-09 09:04 | W.PN.ONC ---
Documented by User: PRECIOUS Graham 06/09/24 10:18
Today's Communication / Plan
-
06/09 Hgb 9.4, Hct 26.7, PLT 8
s/p 1unit PLTs
Defer further PLT transfusions in the absence of acute bleeding - await response from other therapies
Maintain bleeding precautions
Monitor bruising/petechial rash
Continue Dexamethasone 40 mg IV daily
Continue IVIG daily
Continue PPI
Promacta 50mg PO daily initiated yesterday 06/08 (home med)
Continue daily; monitor PLT response
Promacta can take up to 2 weeks to provide full response.
Falls precautions
Monitor for symptoms congestive heart failure given the osmotic load of gammaglobulin
We will follow.
Impression
Impression
Severe ITP
Petechial rash
Fatigue
Subjective/Objective
Subjective/Objective
patient is resting comfortably in bed. she is optimistic regarding counts this morning. She denies noticing further bruising. denies headache or acute pain.
Vital Signs:
Vital Signs
Temp Pulse Resp BP Pulse Ox
97.8 F 76 18 164/75 97
06/09/24 07:05 06/09/24 07:05 06/09/24 07:05 06/09/24 07:05 06/09/24 08:15
physical exam:
aaox3, pleasant/cooperative
Extensive LUE bruising
RUE petechial rash unchanged
no edema
Lab Results:
Laboratory Data
WBC 8.5 10^3/uL (4.8-10.8) 06/09/24 04:51
Hgb 9.4 g/dL (12.0-16.0) L 06/09/24 04:51
Plt Count 8 10^3/uL (130-400) L* D 06/09/24 04:51
eGFR > 60.00 06/09/24 04:51
Orders
Orders
Orders From Last 24 Hours
06/08/24 12:30
Promacta See Dose Instructions PO DAILY

Documented by User: Epifanio Ruiz MD 06/09/24 12:12
Plan
Plan
Hematology Addendum:
Patient seen and evaluated and agree w/ KILN STOKER note and plan as outlined
-plts 8000 today
-cont steroids/ IVIG/ promacta
-follow CBC
--- NOTE | 2024-06-09 14:11 | CM ---
CM continues to follow for discharge planning. No plan at this time for discharge prior to Wednesday at the earliest; pt still on hold for activity due to low platelet count with medication management of condition.
Plan: Case management will continue to follow and assist with discharge planning; no needs identified at this time.
Home when stable.
[2024-06-09] MEDS: GAMMAGARD 200 IV (21:15)
[2024-06-10] VITALS (9 sets, daily range): BP systolic 125–172; BP diastolic 52–86; PULSE 83; O2SAT 97
[2024-06-10] MEDS: COZAAR 100 MG PO ×2 (00:09→21:50)
[2024-06-10] MEDS: DECADRON 60 MG IV (00:09)
[2024-06-10] MEDS: REFRESH EYE DROPS (PF) 1 DROPS BOTH EYES ×3 (00:09→21:50)
[2024-06-10 06:28] LABS: Blood Urea Nitrogen 38 mg/dl (7-17); Calcium 8.5 mg/dl (8.4-10.2); Carbon Dioxide 26 mmol/L (22-30); Chloride 98 mmol/L (98-107); Estimated Creatinine Clearance 32 ml/min; Glucose 132 mg/dl (70-99); Potassium 4.6 mmol/L (3.5-5.1); Sodium 132 mmol/L (135-145); eGFR > 60.00
[2024-06-10 06:31] LABS: % Basophils 0.1 % (0-2); % Immature Granulocytes 1.9 % (0-0.5); % Lymphocytes 6.4 % (20.5-51.1); % Monocytes 4.1 % (1.7-9.3); % Neutrophils 87.5 % (42.2-75.2); Absolute Immature Granulocytes 0.1 10^3/uL (0-0.05); Absolute Lymphocytes 0.5 10^3/uL (1.2-3.4); Absolute Monocytes 0.3 10^3/uL (0.1-0.6); Absolute Neutrophils 6.4 10^3/uL (1.4-6.5); Hematocrit 25.6 % (37.0-47.0); Hemoglobin 9.1 g/dL (12.0-16.0); Mean Corp Hgb Conc. 35.5 g/dL (33.0-37.0); Mean Corpuscular Hgb 33.5 pg (27.0-31.0); Mean Corpuscular Volume 94.1 fL (81.0-99.0); Nucleated Red Blood Cells % 0.3 %; Platelet Count 21 10^3/uL (130-400); Red Blood Cell Count 2.72 10^6/uL (4.20-5.40); Red Cell Dist. Width 15.2 % (11.5-14.5); White Blood Cell Count 7.3 10^3/uL (4.8-10.8)
[2024-06-10] MEDS: NON-FORMULARY ITEM 1 MG PO (07:02)
[2024-06-10] MEDS: CARDIZEM CD 240 MG PO (07:46)
[2024-06-10] MEDS: VITAMIN B-12 2000 MCG PO (07:47)
[2024-06-10] MEDS: VITAMIN D3 (cholecalciferol) 50 MCG PO (07:47)
[2024-06-10] MEDS: PROTONIX 40 MG PO (07:47)
[2024-06-10] MEDS: OCUVITE SOFTGEL 1 CAP PO (07:47)
[2024-06-10] MEDS: LIPITOR 10 MG PO (07:47)
--- NOTE | 2024-06-10 10:45 | W.PN.ONC ---
Today's Communication / Plan
-
plts improved - 21,000
day 4 of dex and IVIG
if plts cont to improve - home on promacta w/ CBC early next week as outpt
has f/u w/Dr. Stein
Impression
Impression
Severe ITP
Petechial rash
Fatigue
Plan
Plan
-plts 22772 today
-cont steroids/ IVIG/ promacta
-follow CBC
Subjective/Objective
Subjective/Objective
no new complaints, feels better, no bleeding
Vital Signs:
Vital Signs
Temp Pulse Resp BP Pulse Ox
97.8 F 66 18 172/64 95
06/10/24 07:05 06/10/24 07:46 06/10/24 07:05 06/10/24 07:46 06/10/24 07:05
Lab Results:
Laboratory Data
WBC 7.3 10^3/uL (4.8-10.8) 06/10/24 05:45
Hgb 9.1 g/dL (12.0-16.0) L 06/10/24 05:45
Plt Count 21 10^3/uL (130-400) L* D 06/10/24 05:45
eGFR > 60.00 06/10/24 05:45
Exam: unchanged
--- NOTE | 2024-06-10 10:51 | W.PN.HOSP.TC ---
Today's Communication/Plan
-
repeat AM CBC and follow hematology recs
Assessment / Plan
Assessment / Plan
Assessment:
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
- direct platelet antibody IgM positive recent admission
- recent admission early May s/p Decadron and steroid course without improvement
- s/p 1 platelet transfusion
- now on IVIG, day 01/19
- also continue Decadron day 01/19
- also continue Promacta
- follow Hematology recs
- platelets 21 today and repeat CBC in AM
Chronic UTIs-E. coli
Chronic urinary incontinence-patient does outpatient pelvic floor therapy
- recent treated with Abx in April
- Believed to be colonized with E. coli
- no new symptoms currently; will hold off Abx for now
Normocytic anemia
- Hgb 11.3 stable
- Continue B12 supplement
HTN Essential
- continue diltiazem to 240 mg daily with hold parameters, losartan 100 mg daily
HLD
- continue atorvastatin 10 mg daily
Noel's esophagus
- continue omeprazole 20 mg daily
Seasonal allergies
- continue Claritin 10 mg daily, fluticasone nasal
Osteoporosis
- gets Prolia injections SQ every 6 months, continue vitamin D
DVT prophylaxis: ambulate
Code: Full
Anticipated Discharge: Within 24 hours
Subjective/Interval History
-
Date of Service: June 10, 2024
platelets 21
no complaints
Objective Data
-
Labs:
Laboratory Results
06/10/24
05:45
WBC 7.3
Hgb 9.1 L
Hct 25.6 L
Plt Count 21 L* D
Sodium 132 L
Potassium 4.6
Chloride 98
Carbon Dioxide 26
BUN 38 H
Creatinine 0.9
Glucose 132 H
Calcium 8.5
Vital Signs:
Vital Signs
Temp Pulse Resp BP Pulse Ox
97.8 F 66 18 172/64 95
06/10/24 07:05 06/10/24 07:46 06/10/24 07:05 06/10/24 07:46 06/10/24 07:05
I&O
06/09/24 06/10/24 06/11/24
06:59 06:59 06:59
Intake Total 600 / 600 1320 / 1320
Balance 600 / 600 1320 / 1320
Physical Exam
-
General: No Apparent Distress
HEENT: Normocephalic and Atraumatic
Respiratory: Negative Wheezes
Cardiac: Regular Rhythm and S1/S2
Musculoskeletal: No Edema
Neuro: AO x 3
Hematologic / Lymphatic: No Lymphadenopathy
Psych: Calm
Data Reviewed
-
Total Time Spent with Patient (in minutes): 41
Labs: Labs Reviewed by me
[2024-06-10] MEDS: GAMMAGARD 200 IV (21:50)
[2024-06-11] VITALS: BP 126/65
[2024-06-11 00:30] VITALS: BP 126/84
[2024-06-11 00:50] VITALS: BP 135/59
[2024-06-11] MEDS: DECADRON 60 MG IV (00:58)
[2024-06-11] MEDS: NON-FORMULARY ITEM 1 MG PO (06:38)
[2024-06-11 07:10] VITALS: BP 133/61
[2024-06-11 08:55] LABS: Blood Urea Nitrogen 37 mg/dl (7-17); Calcium 8.1 mg/dl (8.4-10.2); Carbon Dioxide 27 mmol/L (22-30); Chloride 98 mmol/L (98-107); Estimated Creatinine Clearance 32 ml/min; Glucose 113 mg/dl (70-99); Potassium 4.7 mmol/L (3.5-5.1); Sodium 131 mmol/L (135-145); eGFR > 60.00
[2024-06-11 09:00] LABS: % Basophils 0.1 % (0-2); % Immature Granulocytes 1.5 % (0-0.5); % Lymphocytes 5.9 % (20.5-51.1); % Monocytes 3.8 % (1.7-9.3); % Neutrophils 88.7 % (42.2-75.2); Absolute Immature Granulocytes 0.1 10^3/uL (0-0.05); Absolute Lymphocytes 0.5 10^3/uL (1.2-3.4); Absolute Monocytes 0.3 10^3/uL (0.1-0.6); Absolute Neutrophils 7.7 10^3/uL (1.4-6.5); Hematocrit 26.1 % (37.0-47.0); Hemoglobin 9.2 g/dL (12.0-16.0); Mean Corp Hgb Conc. 35.2 g/dL (33.0-37.0); Mean Corpuscular Hgb 32.7 pg (27.0-31.0); Mean Corpuscular Volume 92.9 fL (81.0-99.0); Mean Platelet Volume 12.4 fL (7.4-10.4); Nucleated Red Blood Cells % 0.2 %; Platelet Count 52 10^3/uL (130-400); Red Blood Cell Count 2.81 10^6/uL (4.20-5.40); Red Cell Dist. Width 15.3 % (11.5-14.5); White Blood Cell Count 8.7 10^3/uL (4.8-10.8)
[2024-06-11] MEDS: OCUVITE SOFTGEL 1 CAP PO (09:08)
[2024-06-11] MEDS: PROTONIX 40 MG PO (09:09)
[2024-06-11] MEDS: REFRESH EYE DROPS (PF) 1 DROPS BOTH EYES (09:09)
[2024-06-11] MEDS: LIPITOR 10 MG PO (09:09)
[2024-06-11] MEDS: VITAMIN D3 (cholecalciferol) 50 MCG PO (09:09)
[2024-06-11] MEDS: CARDIZEM CD 240 MG PO (09:09)
[2024-06-11] MEDS: NON-FORMULARY ITEM PO (09:09)
--- NOTE | 2024-06-11 09:16 | W.PN.HOSP.TC ---
Addendum entered and electronically signed by Ada Solorzano MD 06/12/24 13:34:
Hyponatremia
Original Note:
Today's Communication/Plan
-
dc home
Assessment / Plan
Assessment / Plan
Assessment:
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
- direct platelet antibody IgM positive recent admission
- recent admission early May s/p Decadron and steroid course without improvement
- s/p 1 platelet transfusion
- s/p IVIG and IV steroid 4 day course
- dc home on daily Promacta
- follow Hematology OP with repeat CBC Wednesday
- platelets 52 at discharge
Chronic UTIs-E. coli
Chronic urinary incontinence-patient does outpatient pelvic floor therapy
- recent treated with Abx in April
- Believed to be colonized with E. coli
- no new symptoms currently; will hold off Abx for now
Normocytic anemia
- Hgb 11.3 stable
- Continue B12 supplement
HTN Essential
- continue diltiazem to 240 mg daily with hold parameters, losartan 100 mg daily
HLD
- continue atorvastatin 10 mg daily
Noel's esophagus
- continue omeprazole 20 mg daily
Seasonal allergies
- continue Claritin 10 mg daily, fluticasone nasal
Osteoporosis
- gets Prolia injections SQ every 6 months, continue vitamin D
DVT prophylaxis: ambulate
Code: Full
More than 30 minutes spent in discharge including
Final examination of the patient
Summarizing hospital stay
Instructions for continuing care to all relevant caregivers
Preparation of discharge records, prescriptions, and referral forms
Total time spent (in minutes): 41
Anticipated Discharge: Today
Subjective/Interval History
-
Date of Service: June 11, 2024
plts 52, no complaints
Objective Data
-
Labs:
Laboratory Results
06/11/24
07:24
WBC 8.7
Hgb 9.2 L
Hct 26.1 L
Plt Count 52 L D
Sodium 131 L
Potassium 4.7
Chloride 98
Carbon Dioxide 27
BUN 37 H
Creatinine 0.9
Glucose 113 H
Calcium 8.1 L
Vital Signs:
Vital Signs
Temp Pulse Resp BP Pulse Ox
98.1 F 68 16 133/61 98
06/11/24 07:10 06/11/24 07:10 06/11/24 07:10 06/11/24 07:10 06/11/24 07:10
I&O
06/10/24 06/11/24 06/12/24
06:59 06:59 06:59
Intake Total 1320 / 1320 720 / 720
Balance 1320 / 1320 720 / 720
Physical Exam
-
General: No Apparent Distress
HEENT: Normocephalic and Atraumatic
Respiratory: Clear to Auscultation; Negative Wheezes
Cardiac: Regular Rhythm and S1/S2
GI: Soft
Musculoskeletal: No Edema
Neuro: AO x 3
Hematologic / Lymphatic: No Lymphadenopathy
Psych: Calm
Data Reviewed
-
Total Time Spent with Patient (in minutes): 41
Labs: Labs Reviewed by me
--- NOTE | 2024-06-11 09:23 | W.DS.TRANS ---
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
-
Discharge Instructions:
Discharge Diagnosis/Procedures ITP with low platelets
Diet Regular
Activity As tolerated
Blood Work CBC Wednesday - patient has standing blood work
order
Instructions:
Stand-Alone Forms:
Changes to Home Medications: No
Discharge Medications:
DC Medications w/original date entered in [email or web address]
atorvastatin 10 mg tablet 10 mg PO DAILY High cholesterol 10/13/14
denosumab 60 mg/mL subcutaneous syringe (Prolia) 60 mg SC [id number] 10/12/20
diltiazem HCl 240 mg capsule,24 hr,extended release (Tiadylt ER) 240 mg PO DAILY Blood pressure 10/12/20
vit C 250 mg-vit E 90 mg-zinc 40 mg-copper 1 tg-cayblm-quehum capsule (PreserVision AREDS-2) 1 cap PO DAILY Supplement 10/12/20
clobetasol 0.05 % topical cream 1 applic topical .2X WEEKLY Skin Issues 05/07/22
estradiol 0.01% (0.1 mg/gram) vaginal cream 1 g vaginal .2X WEEKLY Hormonal Agent 05/07/22
peg 400-propylene glycol (PF) 0.4 %-0.3 % eye drops in a dropperette (Systane (PF)) 1 drp BOTH EYES BID dry eyes 05/07/22
cyanocobalamin (vitamin B-12) 1,000 mcg tablet 2,000 mcg PO Q48H Supplement 05/17/24
omeprazole 20 mg capsule,delayed release 20 mg PO DAILY Gastrointestinal Issue 05/17/24
carbamide peroxide 6.5 % ear drops (Debrox) 5 drp EACH EAR WEEKLY ear wax removal 05/23/24
cholecalciferol (vitamin D3) 50 mcg (2,000 unit) tablet 50 mcg PO DAILY Supplement 05/23/24
cranberry fruit 450 mg tablet (cranberry) 450 mg PO DAILY Supplement 05/23/24
losartan 100 mg tablet 100 mg PO HS Blood Pressure 05/23/24
Promacta 1 tab PO DAILY #20 tabs 06/11/24
Home Medication Changes
Pending Results: No
Total time spent discharging patient (in min): 41
[2024-06-11 11:06] VITALS: BP 154/66
--- NOTE | 2024-06-11 14:33 | W.PN.ONC ---
Today's Communication / Plan
-
plts improved
for d/c
cont promacta
CBC 06/13 as outpt
outpt f/u w/ Dr. Stein
Impression
Impression
Severe ITP
Petechial rash
Fatigue
Plan
Plan
-plts [id number] today
-for d/c today
-cont promacta
-follow-up CBC 06/13 as outpt
f/u w/ Dr. Stein as scheduled
Subjective/Objective
Subjective/Objective
no new complaints, no bleeding
Vital Signs:
Vital Signs
Temp Pulse Resp BP Pulse Ox
97.6 F 86 18 154/66 97
06/11/24 11:06 06/11/24 11:06 06/11/24 11:06 06/11/24 11:06 06/11/24 11:06
Lab Results:
Laboratory Data
WBC 8.7 10^3/uL (4.8-10.8) 06/11/24 07:24
Hgb 9.2 g/dL (12.0-16.0) L 06/11/24 07:24
Plt Count 52 10^3/uL (130-400) L D 06/11/24 07:24
eGFR > 60.00 06/11/24 07:24
Exam: unchanged
--- NOTE | 2024-06-12 13:29 | PN.CDI ---
CDI
- -
CDI:
Physician Documentation Request
Admit Date: 06/07/24 19:14
Dear Doctor Jeanine,
Patient admitted with thrombocytopenia.
Laboratory Tests
06/07/24 06/08/24 06/09/24
18:18 06:46 04:51
Sodium 131 L 130 L 132 L
06/10/24 06/11/24
05:45 07:24
Sodium 132 L 131 L
Based on the above, could you clarify in the progress notes, the appropriate diagnosis, if significant, that supports the above abnormalities and additional evaluation, monitoring and/or treatment rendered:
Hyponatremia
Abnormal lab value insignificant
Other
Use of terms such as suspected, likely, concern for, or probable (associated with a specific diagnosis that is being evaluated, monitored, or treated as if it exists) are acceptable and can be coded in the inpatient setting, when documented at the
time of discharge.
Thank you,
Romelia Hook RN, BSN
CDI Specialist
Available via [employer] text
Please use your independent medical judgment in providing your response.
== END 2024-06-11 11:41 | disposition home or self-care (01) | DRG 813 ==
LOC: 4 EAST ACU 19:14
PROVIDERS: Clinical Nurse Specialist Family Health; ADMITTING PHYSICIAN Internal Medicine; ATTENDING PHYSICIAN Internal Medicine; CONSULT PHYSICIAN Internal Medicine Hematology & Oncology; EMERGENCY PHYSICIAN Student in an Organized Health Care Education/Training Program; FAMILY PHYSICIAN Family Medicine
PROC: 30233R1 Transfusion of Nonautologous Platelets into Peripheral Vein, Percutaneous Approach (ICD-10-PCS; 2024-06-07)
DX: D69.3 Immune thrombocytopenic purpura (principal); N39.0 Urinary tract infection, site not specified; E87.1 Hypo-osmolality and hyponatremia; D64.9 Anemia, unspecified; I10 Essential (primary) hypertension; B96.20 Unspecified Escherichia coli [E. coli] as the cause of diseases classified elsewhere; K22.70 Barrett's esophagus without dysplasia; J30.2 Other seasonal allergic rhinitis; M81.0 Age-related osteoporosis without current pathological fracture; E78.00 Pure hypercholesterolemia, unspecified; K21.9 Gastro-esophageal reflux disease without esophagitis; K44.9 Diaphragmatic hernia without obstruction or gangrene; M54.9 Dorsalgia, unspecified; R32 Unspecified urinary incontinence; Z79.52 Long term (current) use of systemic steroids; Z79.899 Other long term (current) drug therapy; Z87.440 Personal history of urinary (tract) infections; Z88.0 Allergy status to penicillin; Z88.2 Allergy status to sulfonamides; Z88.5 Allergy status to narcotic agent; Z88.8 Allergy status to other drugs, medicaments and biological substances
CPT/HCPCS: 36415; 80048; 80053; 81003; 81015; 82607; 82728; 82746; 83540; 83550; 85025; 87077; 87086; 87186; 97162; 97166; 99285; J1569; P9073

== ENCOUNTER → 2024-06-13 09:52 | Outpatient (REF) | payer MEDICARE, BC, SELFPAY ==
[2024-06-13 13:07] LABS: % Basophils 0.1 % (0-2); % Eosinophils 0.2 % (0-6); % Immature Granulocytes 1.6 % (0-0.5); % Lymphocytes 7.5 % (20.5-51.1); % Monocytes 5.4 % (1.7-9.3); % Neutrophils 85.2 % (42.2-75.2); Absolute Immature Granulocytes 0.2 10^3/uL (0-0.05); Absolute Lymphocytes 0.7 10^3/uL (1.2-3.4); Absolute Monocytes 0.5 10^3/uL (0.1-0.6); Absolute Neutrophils 8.1 10^3/uL (1.4-6.5); Hematocrit 29.6 % (37.0-47.0); Hemoglobin 10.2 g/dL (12.0-16.0); Mean Corp Hgb Conc. 34.5 g/dL (33.0-37.0); Mean Corpuscular Hgb 32.7 pg (27.0-31.0); Mean Corpuscular Volume 94.9 fL (81.0-99.0); Mean Platelet Volume 11.5 fL (7.4-10.4); Nucleated Red Blood Cells % 0.2 %; Platelet Count 49 10^3/uL (130-400); Red Blood Cell Count 3.12 10^6/uL (4.20-5.40); Red Cell Dist. Width 15.8 % (11.5-14.5); White Blood Cell Count 9.5 10^3/uL (4.8-10.8)
== END ==
LOC: HWLAB 09:52
PROVIDERS: ATTENDING PHYSICIAN Internal Medicine Hematology & Oncology; FAMILY PHYSICIAN Family Medicine
DX: D69.3 Immune thrombocytopenic purpura (principal)
CPT/HCPCS: 36415; 85025

== ENCOUNTER → 2024-06-16 08:28 | Outpatient (REF) | payer MEDICARE, BC, SELFPAY ==
[2024-06-16 09:07] LABS: % Basophils 0.2 % (0-2); % Eosinophils 0.2 % (0-6); % Immature Granulocytes 1.3 % (0-0.5); % Lymphocytes 6.9 % (20.5-51.1); % Monocytes 5.6 % (1.7-9.3); % Neutrophils 85.8 % (42.2-75.2); Absolute Immature Granulocytes 0.1 10^3/uL (0-0.05); Absolute Lymphocytes 0.4 10^3/uL (1.2-3.4); Absolute Monocytes 0.3 10^3/uL (0.1-0.6); Absolute Neutrophils 4.7 10^3/uL (1.4-6.5); Hematocrit 29.5 % (37.0-47.0); Hemoglobin 10.2 g/dL (12.0-16.0); Mean Corp Hgb Conc. 34.6 g/dL (33.0-37.0); Mean Corpuscular Hgb 32.6 pg (27.0-31.0); Mean Corpuscular Volume 94.2 fL (81.0-99.0); Nucleated Red Blood Cells % 0 %; Platelet Count 11 10^3/uL (130-400); Red Blood Cell Count 3.13 10^6/uL (4.20-5.40); Red Cell Dist. Width 15.9 % (11.5-14.5); White Blood Cell Count 5.5 10^3/uL (4.8-10.8)
[2024-06-16 09:38] LABS: ALT (SGPT) 38 U/L (0-35); AST (SGOT) 43 U/L (14-36); Albumin 3.4 g/dl (3.5-5.0); Alkaline Phosphatase 71 U/L (38-126); Blood Urea Nitrogen 24 mg/dl (7-17); Calcium 8.3 mg/dl (8.4-10.2); Carbon Dioxide 25 mmol/L (22-30); Chloride 99 mmol/L (98-107); Glucose 103 mg/dl (70-99); Potassium 4.9 mmol/L (3.5-5.1); Sodium 130 mmol/L (135-145); Total Bilirubin 1.1 mg/dl (0.2-1.3); Total Protein 7.1 g/dl (6.3-8.2); eGFR > 60.00
== END ==
LOC: REG 08:28
PROVIDERS: ATTENDING PHYSICIAN Internal Medicine Hematology & Oncology; FAMILY PHYSICIAN Family Medicine
DX: D69.3 Immune thrombocytopenic purpura (principal)
CPT/HCPCS: 36415; 80053; 85025

== ENCOUNTER 2024-06-16 19:21 | Inpatient (IN) | payer MEDICARE, BC, SELFPAY ==
[2024-06-16] VITALS (15 sets, daily range): BP systolic 151–186; BP diastolic 62–100; BMI 20.7; BMI 20.2
--- NOTE | 2024-06-16 15:47 | ED.GENMED ---
History of Present Illness
General
Chief Complaint: Abnormal Lab Value
Source: patient and family
Exam Limitations: none
Time Seen by Provider: 06/16/24 14:44
History of Present Illness
History of Present Illness:
The patient is a pleasant 88-year-old female with a past medical history of newly diagnosed ITP. Patient was just admitted for a low platelet count and IVIG therapy. Patient and family report that she was told to go to the emergency department for
platelet transfusion given that it is a holiday weekend. Patient reports fatigue and diffuse bodyaches. Patient is followed by Dr. Stein.
Past History
Past History
ED Past Medical History: GERD, HTN, Hypercholesterolemia and Other (Back pain, Barrets esophagus, hiatal hernia, ITP)
ED Past Surgical History: Gynecological (Breast biopsy) and Other (Bladder surgery, vein stripping cataracts)
Social History
Tobacco: Non-smoker
Alcohol: None
Drug: None
Personal:
Living: alone
Employment: Retired
Family History
Family History: Other
Review of Systems
Review of Systems
Allergies reviewed?: Yes
Other source history: family
All Other Systems: ROS reviewed and negative except as documented in HPI and ROS
Constitutional: Reports fatigue
EENT: Reports no symptoms
Respiratory: Reports no symptoms
Cardiac: Reports no symptoms
ABD/GI: Reports no symptoms
: Reports no symptoms
Musculoskeletal: Reports joint pain, muscle pain and muscle stiffness
Skin: Reports no symptoms
Neurological: Reports no symptoms
Endocrine: Reports no symptoms
Hematologic/Lymphatic: Reports bleeding and bruising
Psychiatric: Reports no symptoms
Phy Exam
Physical Exam
Physical Exam:
Physical Exam
General: no apparent distress, not acutely ill
Neck: supple. no meningeal signs. normal psoterior pharynx
Heart: s1/s2 regular rate and rhythm, no murmur. equal radial pulses.
Lungs: no acute respiratory distress. clear bilaterally
Abdomen: normal bowel sounds. not tender. no CVAT
Neuro: alert and oriented. no focal neurological deficits
Skin: Multiple areas of petechiae on extremities. Very ecchymotic left upper extremity.
Psychiatric: well kept. interactive and cooperative
Extremities: no edema. no calf tenderness. negative homans. good distal pulses
Course
Orders/Labs/Results
Orders:
Orders
06/16/24 16:11
* Blood Bank Products Urgent
'mehreen Orders: [facility]
Blood Bank Products: *Plt Single Donor Leuko
Quantity: 1
Transfuse Today: Yes
Reason: Thrombocytopenia
IV Insert/Care/Rem.- Treatment PRN
06/16/24 16:36
Type And Crossmatch Urgent
06/16/24 14:06
06/16/24 14:06
Vital Signs
Initial and Last Documented VS:
Initial Vital Signs
Temp Pulse Resp BP Pulse Ox
98.6 F 90 20 185/80 99
06/16/24 14:04 06/16/24 14:04 06/16/24 14:04 06/16/24 14:04 06/16/24 14:04
Last Documented Vital Signs
Temp Pulse Resp BP Pulse Ox
98.6 F 90 20 185/80 95
06/16/24 14:04 06/16/24 17:05 06/16/24 14:04 06/16/24 14:04 06/16/24 17:05
MDM/Problems Addressed
Differential Diagnosis Includes:
Acute on chronic thrombocytopenia, acute pancytopenia
MDM/Problems Addressed:
Patient presents with acute on chronic thrombocytopenia
Chronic conditions affecting care:
Thrombocytopenia
Acute Exacerbation and/or Progression of Chronic Illness:
Patient symptoms represent acute exacerbation of chronic thrombocytopenia
*Pulse Oximetry
Patient hypoxic: no
*EKG
Interpreted by ED Provider?: NA
*Critical Care Note
Total Time (30-74mins, 75-104mins- exclusive of procedures): Not Applicable
Data Reviewed
Review of Other/Old Records Reveals: Discharge Summary (Patient's discharge summary reviewed from hospitalist from her recent admission for acute thrombocytopenia. Patient started on IVIG and steroids)
Source: patient and family
Patient Management
Discussion with other providers: Hospitalist and Other (Dr. Selina Harris who recommended platelet transfusion and admission)
Escalation/DeEscalation of care consider admission/obs:
Patient gave written consent and understands reason for getting platelets. She will be admitted for persistent severe thrombocytopenia
ED Attending Note
-
Portions of this chart may have been created with voice recognition software.� Occasional wrong word or��sound alike� substitutions may have occurred due to the inherent limitations of voice recognition software.
Discharge Plan
Departure
Patient Disposition: Admit
Date of Disposition: 06/16/24
Time of Disposition: 17:17
Admit to: Med/Surg
Presentation/result/management discussed w/ accepting MD/DO: Hospitalist
Patient with high blood pressure during this ER visit?: Yes
Condition: Good
Discharge Problem:
Severe thrombocytopenia
Prescriptions:
No Action
atorvastatin 10 MG tablet
10 mg PO DAILY
diltiazem HCl [Tiadylt ER] 240 MG capsule,extended release 24 hr
240 mg PO DAILY
Prolia 60 MG/ML syringe
60 mg SC [id number]
PreserVision AREDS-2 1 EACH capsule
1 cap PO DAILY
clobetasol 0.05 % Cream
1 applic TOPICAL .2X WEEKLY
estradiol 0.01 % (0.1 mg/gram) Cream
1 g VAGINAL .2X WEEKLY
Systane (PF) 0.4-0.3 % Dropperette
1 drp BOTH EYES BID
cyanocobalamin (vitamin B-12) 1,000 mcg Tablet
2,000 mcg PO Q48H
omeprazole 20 mg Capsule,Delayed Release(Dr/Ec)
20 mg PO DAILY
Debrox 6.5 % Drops
5 drp EACH EAR WEEKLY
losartan 100 mg tablet
100 mg PO HS
cholecalciferol (vitamin D3) 50 mcg (2,000 unit) Tablet
50 mcg PO DAILY
cranberry 450 mg Tablet
450 mg PO DAILY
Promacta
1 tab PO DAILY Qty: 20 0RF
Referrals:
Feli Guzman DO [Family Provider] -
Interventions
Interventions:
*Risk Screen - Suicide Last Done: 06/16/24 14:04
*General Assessment Last Done: 06/16/24 14:04
*Neglect/Abuse Screening Last Done: 06/16/24 14:04
Discharge Date and Time
Print Language: MONGOLIAN
--- NOTE | 2024-06-16 18:00 | W.PN.UPDATE ---
Update Note
Progress Note Update
This serves as an addendum to the H&P dictated by Astrid West on 06/06/2024.
I saw and examined the patient.
The HAND SPINNER or PA's note was reviewed and I agree with the note.
Comment:
Patient 88 years old female with history of ITP, chronic UTIs, anemia, hypertension, hyperlipidemia, presented to the hospital with worsening thrombocytopenia. Patient was recently hospitalized and received platelet transfusion, IVIG, IV steroids
and discharged on Promacta. Reviewed last hospitalization. She is followed by hematology as outpatient (she sees Dr. Stein) and platelet counts noticed to be 11 so she was instructed to come to the hospital for further evaluation. Last platelet
count was 49 on 06/13. Patient reports some bleeding from her gums when she is brushing her teeth. Denies hematuria, bright blood per rectum, melena, epistaxis, or hematochezia. Denies fevers or chills. Denies clear urinary tract symptoms for
infection but she does have some chronic symptoms for which she has pelvic floor management as outpatient. No new medications except for a tapering course of steroids that she has been taken over the last few days to counteract the IVIG as per
family report. Patient was referred to hospitalist service for further evaluation.
Physical exam:
General: Acute on chronically ill
HEENT: Normocephalic, Atraumatic and Moist Mucous Membranes
Respiratory: Clear to Auscultation; Negative Wheezes, Rales or Rhonchi
Cardiac: Regular Rhythm and S1/S2
GI: Soft, Nontender and Nondistended
Skin: Petechial rash in both lower extremities, ecchymosis at left upper extremity that seems to be from last admission.
Musculoskeletal: No Clubbing, No Cyanosis and No Edema
Neuro: Awake, Alert and Oriented
Psych: Calm
A/P:
ITP, exacerbation--> platelet transfusion, IVIG, consider higher dose steroids, hematology consult, monitor for any signs of bleeding or worsening thrombocytopenia. Will give further recommendations based on clinical course.
--- NOTE | 2024-06-16 18:05 | HPS.HSE ---
Family Physician
-
Family Physician: Feli Guzman
Chief Complaint
-
Abnormal platelet level
History of Present Illness
88-year-old female 'outpatient blood work showing platelets of 49 down from prior 52 associated with fatigue, diffuse bodyaches and headache. She was started on a Medrol Dosepak on Wednesday 4 days ago due to pain. She was sent to ER for admission
for platelet transfusion/IVIG due to upcoming holiday and dropping platelets despite Promacta 50 mg daily. 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
She had recent admissions 06/07 - 06/11/2024 for ITP with PLT of 1 which improved to 52 post 4-day course of steroids, IVIG and on daily Promacta. She has a bruise to her entire left arm this is from a IV infiltration on her last admission. She
reports mild bleeding of her gums. She denies any bleeding from urine, bowel no black or bloody stools, no chest pain, palpitations, shortness of breath, cough, abdominal pain, nausea, vomiting, diarrhea. She has chronic urinary frequency and
follows with outpatient urology with pelvic floor therapy. She also had prior admission on -05/26/24 ITP with platelet of 2 post Decadron and 1 unit of platelet transfusion
Past medical history ITP, HLD, HTN, Noel's esophagus, normocytic anemia, chronic UTIs with E. coli/chronic urinary incontinence, osteoporosis
Medical History
Past Medical History
Past Medical History: Reports Other (essential HTN, HLD, Noel's esophagitis)
Additional Past Medical History:
ITP Dx 05/23/2024
Chronic UTIs with E. coli colonization
Chronic urinary incontinence
Past Surgical History: Reports Other
Social History
Tobacco: Non-smoker
Alcohol: None
Personal: Single
Living: With Family
Employment: Retired
Family History
Family History: Other (Grandson with ITP Dx age 18 currently resolved at 21)
Allergies / Home Medications
Allergies reflects when Allergies were last updated in [employer].
Home Medications with original date entered in [employer]
Allergy/Medication List:
Allergies
Allergy/AdvReac Type Severity Reaction Status Date / Time
amoxicillin Allergy Rash Verified 05/23/24 16:53
cefuroxime [From Ceftin] Allergy reaction - Verified 05/23/24 18:17
diarrhea
codeine Allergy Vomiting Verified 05/23/24 16:53
hydrochlorothiazide Allergy Vomiting Verified 05/23/24 16:53
minocycline Allergy Vomiting Verified 05/23/24 16:53
morphine Allergy Vomiting Verified 05/23/24 16:53
oxycodone [From Percocet] Allergy Vomiting Verified 05/23/24 16:53
propoxyphene Allergy Vomiting Verified 05/23/24 16:53
[From Darvocet-N]
Sulfa (Sulfonamide Allergy Swelling Verified 05/23/24 16:53
Antibiotics)
Home Medications
atorvastatin 10 mg tablet 10 mg PO DAILY High cholesterol 10/13/14
denosumab 60 mg/mL subcutaneous syringe (Prolia) 60 mg SC [id number] osteoporosis 10/12/20
diltiazem HCl 240 mg capsule,24 hr,extended release (Tiadylt ER) 240 mg PO DAILY Blood pressure 10/12/20
vit C 250 mg-vit E 90 mg-zinc 40 mg-copper 1 pc-wdnsao-ymveiv capsule (PreserVision AREDS-2) 1 cap PO DAILY Supplement 10/12/20
clobetasol 0.05 % topical cream 1 applic topical .2X WEEKLY Skin Issues 05/07/22
estradiol 0.01% (0.1 mg/gram) vaginal cream 1 g vaginal .2X WEEKLY Hormonal Agent 05/07/22
peg 400-propylene glycol (PF) 0.4 %-0.3 % eye drops in a dropperette (Systane (PF)) 1 drp BOTH EYES BID dry eyes 05/07/22
cyanocobalamin (vitamin B-12) 1,000 mcg tablet 2,000 mcg PO Q48H Supplement 05/17/24
omeprazole 20 mg capsule,delayed release 20 mg PO DAILY Gastrointestinal Issue 05/17/24
carbamide peroxide 6.5 % ear drops (Debrox) 5 drp EACH EAR WEEKLY ear wax removal 05/23/24
cholecalciferol (vitamin D3) 50 mcg (2,000 unit) tablet 50 mcg PO DAILY Supplement 05/23/24
cranberry fruit 450 mg tablet (cranberry) 450 mg PO DAILY Supplement 05/23/24
losartan 100 mg tablet 100 mg PO DAILY Blood Pressure 05/23/24
prednisone 20 mg tablet 60 mg PO DAILY 06/07/24
Review of Systems
-
History Source: Patient and Family (Daughters at bedside)
A 12 point ROS was completed and negative except as noted: Yes
Constitutional: Reports Fatigue and Other (Body aches); Denies Chills
EENT: Reports Other (Reports gums bleeding when brushing); Denies Sore Throat or Runny Nose
Respiratory: Denies Cough or Trouble Breathing
Cardiac: Denies Chest Pain, Diaphoresis, Palpitations or Syncope
Abdomen/GI: Denies Abdominal Pain, Nausea, Vomiting, Diarrhea, Constipated, Bloody Stools or Black Stools
: Reports Incontinence (Chronic urinary); Denies Dysuria, Frequency, Flank Pain, Difficulty Voiding, Urgency, Bleeding or Dark Urine
Musculoskeletal: Denies Joint Pain or Edema
Skin: Reports Rash (Chronic petechial rash entire body secondary to ITP, left arm from elbow to wrist circumferential ecchymosis secondary to prior IV stick attempt that hit artery and antecubital); Denies Itching
Neurological: Reports Headache; Denies Dizzy or Weakness
Endocrine: Reports No Symptoms
Hematologic/Lymphatic: Reports No Symptoms
Psych: Reports Calm
Physical Exam
Vital Signs
Vital Signs
Temp Pulse Resp BP Pulse Ox
98.6 F 90 20 185/80 95
06/16/24 14:04 06/16/24 17:05 06/16/24 14:04 06/16/24 14:04 06/16/24 17:18
Physical Exam
General: Conversant, Chills and Other (Body aches); No Pain or Fever
HEENT: NormoCephalic, Anicteric, Moist mucous membranes, PERRLA, [place] Conjunctivae and No Ptosis
Respiratory: Clear; No Wheezes, Rales or Rhonchi
Cardiac: S1/S2 and Regular Rhythm; No Murmur, Rub, Gallop or Peripheral Edema
GI: Soft, Non Tender, Non Distended, Normal Bowel Sounds and No Hepatosplenomegaly
Genito-urinary: Deferred by me
Musculoskeletal: No Clubbing, No Cyanosis, No Edema and Other (Chronic petechial rash entire body secondary to ITP, left arm from elbow to wrist circumferential ecchymosis secondary to prior IV stick attempt that hit artery and antecubital)
Skin: Warm, Dry and Rash (Chronic petechial rash entire body secondary to ITP, left arm from elbow to wrist circumferential ecchymosis secondary to prior IV stick attempt that hit artery and antecubital)
Neuro: AO x 3, No Motor Deficits, Nonfocal/grossly intact, Cranial Nerves Intact and No Sensory Deficits; No Slurred Speech, Facial Droop, Tremors or Sedated
Psych: Calm
Laboratory Results
-
06/16/24 14:06
06/16/24 14:06
Laboratory Results
APTT Cancelled 06/16/24 14:07
Total Bilirubin Cancelled 06/16/24 14:06
AST Cancelled 06/16/24 14:06
ALT Cancelled 06/16/24 14:06
Alkaline Phosphatase Cancelled 06/16/24 14:06
Data Reviewed
-
Lab Data: Labs Reviewed by me
Impression/Plan
-
Impression/plan:
Admit to telemetry
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
#Hx direct platelet antibody IgM positive
#Third admission since 05/23/2024 prior PLT 1, 2 received platelet transfusions in past
-She completed course of IVIG, IV steroids 4-day course and started on Promacta on recent admission 06/07 - 06/11/2024
Plt 11 PLT was 52 on 06/11/2024
-Consult oncology- discussed with dr rudy agarwal
-Transfuse platelets
-Plan for IVIG transfusion per hematology 400mg/kg X 5 days
-Start 60 mg prednisone in a.m. with Protonix prophylaxis
-Continue Promacta 50 mg daily
-Follow CBC, CMP
#Chronic UTIs-E. coli-believed to be colonized with E. coli
#Chronic urinary incontinence-patient does outpatient pelvic floor therapy
- recent treated with Abx in April
#Normocytic anemia
- Hgb 10.2
- Continue B12 supplement
#HTN Essential
-BP 185/80
- continue diltiazem 240 mg daily with hold parameters, losartan 100 mg daily
#HLD
- continue atorvastatin 10 mg daily
#Noel's esophagus
- continue omeprazole 20 mg daily
#Seasonal allergies
- continue Claritin 10 mg daily, fluticasone nasal
#Osteoporosis
- gets Prolia injections SQ every 6 months, continue vitamin D
DVT prophylaxis:
Encourage ambulation
Full code
[2024-06-16] MEDS: TYLENOL 1000 MG PO (18:19)
[2024-06-16] MEDS: GAMMAGARD 200 IV (20:48)
[2024-06-16] MEDS: COZAAR 100 MG PO (20:56)
[2024-06-16] MEDS: REFRESH EYE DROPS (PF) 1 DROPS BOTH EYES (20:57)
[2024-06-17] VITALS (14 sets, daily range): BP systolic 127–1178; BP diastolic 56–92; PULSE 82; O2SAT 95; BMI 20.2
[2024-06-17] MEDS: NON-FORMULARY ITEM 1 TABLET PO (05:32)
--- NOTE | 2024-06-17 07:08 | PTCARENOTE ---
Patient AAOx3, admitted to 328 tolerated IVIG well. Skin assessment completed, oriented to unit, call milligan within reach, no c/o pain or discomfort.
[2024-06-17] MEDS: REFRESH EYE DROPS (PF) 1 DROPS BOTH EYES ×2 (07:25→21:51)
[2024-06-17] MEDS: CARDIZEM CD 240 MG PO (07:25)
[2024-06-17] MEDS: OCUVITE SOFTGEL 1 CAP PO (07:25)
[2024-06-17] MEDS: PROTONIX 40 MG PO (07:25)
[2024-06-17] MEDS: DELTASONE 60 MG PO (07:25)
[2024-06-17] MEDS: LIPITOR 10 MG PO (07:25)
[2024-06-17] MEDS: VITAMIN D3 (cholecalciferol) 50 MCG PO (07:25)
[2024-06-17 08:14] LABS: % Basophils 0.2 % (0-2); % Immature Granulocytes 1.1 % (0-0.5); % Lymphocytes 8.1 % (20.5-51.1); % Monocytes 6.3 % (1.7-9.3); % Neutrophils 82.3 % (42.2-75.2); Absolute Eosinophils 0.1 10^3/uL (0-0.7); Absolute Immature Granulocytes 0.1 10^3/uL (0-0.05); Absolute Lymphocytes 0.4 10^3/uL (1.2-3.4); Absolute Monocytes 0.3 10^3/uL (0.1-0.6); Absolute Neutrophils 4.5 10^3/uL (1.4-6.5); Hematocrit 27.2 % (37.0-47.0); Hemoglobin 9.4 g/dL (12.0-16.0); Mean Corp Hgb Conc. 34.6 g/dL (33.0-37.0); Mean Corpuscular Hgb 32.8 pg (27.0-31.0); Mean Corpuscular Volume 94.8 fL (81.0-99.0); Mean Platelet Volume 13.3 fL (7.4-10.4); Nucleated Red Blood Cells % 0 %; Platelet Count 17 10^3/uL (130-400); Red Blood Cell Count 2.87 10^6/uL (4.20-5.40); Red Cell Dist. Width 15.9 % (11.5-14.5); White Blood Cell Count 5.4 10^3/uL (4.8-10.8)
[2024-06-17 08:41] LABS: ALT (SGPT) 34 U/L (0-35); AST (SGOT) 38 U/L (14-36); Albumin 3.1 g/dl (3.5-5.0); Alkaline Phosphatase 66 U/L (38-126); Blood Urea Nitrogen 20 mg/dl (7-17); Carbon Dioxide 26 mmol/L (22-30); Chloride 100 mmol/L (98-107); Estimated Creatinine Clearance 41 ml/min; Glucose 71 mg/dl (70-99); Potassium 4.4 mmol/L (3.5-5.1); Sodium 133 mmol/L (135-145); Total Protein 7.1 g/dl (6.3-8.2); eGFR > 60.00
--- NOTE | 2024-06-17 09:09 | W.PN.HOSP.TC ---
Today's Communication/Plan
-
IV immunoglobulin. Steroids. Promacta. Platelet transfusion as needed. Hematology eval
Assessment / Plan
Assessment / Plan
Physical exam:
General: Acute on chronically ill
HEENT: Normocephalic, Atraumatic and Moist Mucous Membranes
Respiratory: Clear to Auscultation; Negative Wheezes, Rales or Rhonchi
Cardiac: Regular Rhythm and S1/S2
GI: Soft, Nontender and Nondistended
Skin: Petechial rash in both lower extremities, ecchymosis at left upper extremity that seems to be from last admission.
Musculoskeletal: No Clubbing, No Cyanosis and No Edema
Neuro: Awake, Alert and Oriented
Psych: Calm
A/P:
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
#Hx direct platelet antibody IgM positive
#Third admission since 05/23/2024 prior PLT 1, 2 received platelet transfusions in past
-She completed course of IVIG, IV steroids 4-day course and started on Promacta on recent admission 06/07 - 06/11/2024
Plt 11 PLT was 52 on 06/11/2024--> today platelet count 17
-Consult oncology- discussed with dr rudy agarwal and she is to see her today--> pending hematology consultation today on 06/17
-Transfuse platelets
-Plan for IVIG transfusion per hematology 400mg/kg X 5 days
-Start 60 mg prednisone in a.m. with Protonix prophylaxis
-Continue Promacta 50 mg daily
-Follow CBC, CMP
-Discussed with son at bedside today on 06/17
#Chronic UTIs-E. coli-believed to be colonized with E. coli
#Chronic urinary incontinence-patient does outpatient pelvic floor therapy
- recent treated with Abx in April
#Normocytic anemia
- Hgb 10.2
- Continue B12 supplement
#HTN Essential
-BP 185/80
- continue diltiazem 240 mg daily with hold parameters, losartan 100 mg daily
#HLD
- continue atorvastatin 10 mg daily
#Noel's esophagus
- continue omeprazole 20 mg daily
#Seasonal allergies
- continue Claritin 10 mg daily, fluticasone nasal
#Osteoporosis
- gets Prolia injections SQ every 6 months, continue vitamin D
DVT prophylaxis:
Encourage ambulation
Full code
Anticipated Discharge: > 48 hours
Subjective/Interval History
-
Date of Service: June 17, 2024
Patient denies any new bleeding. No chest pain or shortness of breath
Objective Data
-
Labs:
Laboratory Results
06/17/24
06:25
WBC 5.4
Hgb 9.4 L
Hct 27.2 L
Plt Count 17 L* D
Sodium 133 L
Potassium 4.4
Chloride 100
Carbon Dioxide 26
BUN 20 H
Creatinine 0.7
Glucose 71
Calcium 8.0 L
Total Bilirubin 1.0
AST 38 H
ALT 34
Alkaline Phosphatase 66
Vital Signs:
Vital Signs
Temp Pulse Resp BP Pulse Ox
98.5 F 95 18 167/92 97
06/17/24 08:00 06/17/24 08:00 06/17/24 08:00 06/17/24 08:00 06/17/24 08:42
I&O
06/16/24 06/17/24 06/18/24
06:59 06:59 06:59
Intake Total 605 / 605
Balance 605 / 605
--- NOTE | 2024-06-17 12:53 | PTOTSP ---
pt currently demonstrates ability to complete simple ADLs, functional transfers, ambulation with supervision to no assistance. no acute OT needs identified at this time, will sign off.
--- NOTE | 2024-06-17 14:00 | CON.ONC ---
Impression
Impression
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
Plan
Plan
Plan for IVIg 400 mg/kg daily x 5.
Continue predisone 60 mg daily, plan slower taper after discharge this time. Would not taper until platelet count stabilizes.
Continue Promacta 50 mg daily.
May need to maintain IVIg as outpt once every 1-2 weeks until disease stabilizes.
Thank you for consult, will follow along with you.
Patient History
History of Present Illness
89-year-old woman who came to the [facility] ER earlier this month with plt of 2. She was treated with dexamethasone 40 mg p.o. daily for 4 days followed by rapid oral prednisone taper by 10 mg every 2 days, and platelet transfusion. She
was then seen in our office on May 31. As of June 05, her platelet count had again dropped and she was started on Promacta 50 mg daily. She was hospitalized again when platelets dropped She has continued on Promacta. As of 06/16, the platelet
count had dropped to 11 and she was directed back here to the ER. Since admission she has been treated with platelet transfusion, prednisone 60 mg, and IVIG 400 mg/kg. She has continued on Promacta as well.
Past-Medical/Surgical History
PMHx:
Essential hypertension
Hyperlipidemia
Neol's esophagitis/GERD
Hiatal hernia
Back pain
Recurrent UTIs
Osteoporosis
Roseca
PSHx:
Essential hypertension
Hyperlipidemia
Noel's esophagitis/GERD
Hiatal hernia
Back pain
Recurrent UTIs
Osteoporosis
Roseca
Soc:
EtOH <1/week
Non-smoker
Fam:
Daughter - Breast and bone cancer
Grandson ITP PLT = 5 at 19, in remission age 21
Patient Medication
�Medication �Instructions �Recorded �Confirmed �Last Taken �Type
atorvastatin 10 mg tablet 10 mg PO DAILY High cholesterol 10/13/14 06/16/24 06/16/24 History
denosumab 60 mg/mL subcutaneous 60 mg SC [id number] osteoporosis 10/12/20 06/16/24 Unknown History
syringe (Prolia)
diltiazem HCl 240 mg capsule,24 240 mg PO DAILY Blood pressure 10/12/20 06/16/24 06/16/24 History
hr,extended release (Tiadylt ER)
vit C 250 mg-vit E 90 mg-zinc 40 1 cap PO DAILY Supplement 10/12/20 06/16/24 06/16/24 History
mg-copper 1 [id number]
capsule (PreserVision AREDS-2)
clobetasol 0.05 % topical cream 1 applic topical .2X WEEKLY Skin 05/07/22 06/16/24 Unknown History
Issues
estradiol 0.01% (0.1 mg/gram) 1 g vaginal .2X WEEKLY Hormonal 05/07/22 06/16/24 Unknown History
vaginal cream Agent
peg 400-propylene glycol (PF) 0.4 1 drp BOTH EYES BID dry eyes 05/07/22 06/16/24 06/16/24 History
%-0.3 % eye drops in a dropperette
(Systane (PF))
cyanocobalamin (vitamin B-12) 1,000 mcg PO DAILY Supplement 05/17/24 06/16/24 Unknown History
1,000 mcg tablet
omeprazole 20 mg capsule,delayed 20 mg PO DAILY Gastrointestinal 05/17/24 06/16/24 06/16/24 History
release Issue
carbamide peroxide 6.5 % ear drops 5 drp EACH EAR WEEKLY ear wax 05/23/24 06/16/24 05/19/24 History
(Debrox) removal
cholecalciferol (vitamin D3) 50 50 mcg PO DAILY Supplement 05/23/24 06/16/24 06/16/24 History
mcg (2,000 unit) tablet
cranberry fruit 450 mg tablet 450 mg PO DAILY Supplement 05/23/24 06/16/24 06/16/24 History
(cranberry)
losartan 100 mg tablet 100 mg PO HS Blood Pressure 05/23/24 06/16/24 06/15/24 History
Promacta 1 tab PO DAILY #20 tabs 06/11/24 06/16/24 06/16/24 Rx
methylprednisolone 4 mg tablets in 4 mg PO PER PKG DIR 06/16/24 06/16/24 06/16/24 History
a dose pack
Active Medications
Generic Name Dose Route Start Last Admin
Trade Name Freq PRN Reason Stop Dose Admin
Acetaminophen 650 mg 06/16/24 19:35
Acetaminophen 325 Mg Tablet PO 07/14/24 19:34
Q4HPRN PRN
mild pain/PALMER/temp> 100.4F
Artificial Tears 1 drops 06/16/24 20:00 06/17/24 07:25
Artificial Tears Pf (Refresh) 10 Drop Droperette BOTH EYES 07/14/24 19:59 1 drops
BID HUGO Administration
Atorvastatin Calcium 10 mg 06/17/24 08:00 06/17/24 07:25
Atorvastatin (Lipitor) 10 Mg Tablet PO 07/15/24 07:59 10 mg
DAILY HUGO Administration
Bisacodyl 10 mg 06/16/24 19:35
Bisacodyl 10 Mg Rectal Suppository RECTAL 07/14/24 19:34
[id number] PRN
constipation
Carbamide Peroxide 0 drop 06/23/24 08:00
Carbamide Peroxide 6.5% (Otic Solution) 15 Ml Bottle BOTH EARS 07/21/24 07:59
WEEKLY HUGO
Cholecalciferol 50 mcg 06/17/24 08:00 06/17/24 07:25
Cholecalciferol (Vitamin D3) 50 Mcg Tablet (2,000 Units) PO 07/15/24 07:59 50 mcg
DAILY HUGO Administration
Cyanocobalamin 2,000 mcg 06/18/24 08:00
Cyanocobalamin 1,000 Mcg Tablet PO 07/16/24 07:59
Q48H HUGO
Diltiazem HCl 240 mg 06/17/24 08:00 06/17/24 07:25
Diltiazem 240 Mg Extended Release (24 H) Capsule PO 07/15/24 07:59 240 mg
DAILY HUGO Administration
Estradiol 0 applic 06/18/24 22:00
Estradiol 0.01% (Vaginal Cream) 42.5 Gram Tube VAG 07/16/24 21:59
SuWe@2200 HUGO
Immune Globulin 20 gram in 200 mls @ 0 mls/hr 06/16/24 20:00 06/16/24 20:48
Gammagard IV 06/20/24 20:01 200 mls
Q24H HUGO Administration
Protocol
Per Protocol
Losartan Potassium 100 mg 06/16/24 22:00 06/16/24 20:56
Losartan 100 Mg Tablet PO 07/14/24 21:59 100 mg
HS HUGO Administration
Promacta 50mg Po 0 tablet 06/17/24 06:00 06/17/24 05:32
Daily PO 07/15/24 05:59 1 tablet
DAILY@0600 HUGO Administration
Pantoprazole Sodium 40 mg 06/17/24 08:00 06/17/24 07:25
Pantoprazole 40 Mg Delayed Release Tablet PO 07/15/24 07:59 40 mg
DAILY HUGO Administration
Polyethylene Glycol 17 grams 06/16/24 19:35
Polyethylene Glycol Powder 17 Grams Packet PO 07/14/24 19:34
DAILYPRN PRN
constipation
Prednisone 60 mg 06/17/24 08:00 06/17/24 07:25
Prednisone 20 Mg Tablet PO 07/15/24 07:59 60 mg
DAILY HUGO Administration
Senna/Docusate Sodium 1 tablet 06/16/24 19:35
Docusate W/Senna (Sandra-Colace) Tablet PO 07/14/24 19:34
BIDPRN PRN
constipation
Sodium Chloride 0 flush 06/16/24 20:00
Sodium Chloride 0.9% (Flush) Syringe IV 07/14/24 19:59
PER PROTOCOL UHGO
Vitamin C/Vitamin E 1 cap 06/17/24 08:00 06/17/24 07:25
Vit C/Vit E/Lutein/Min/[place]-3 (Ocuvite) Capsule PO 07/15/24 07:59 1 cap
DAILY HUGO Administration
Physical Exam
-
General: Well Developed, Well Nourished and Other (Appears well and younger than stated age)
HEENT: Moist Mucous Membranes; Negative Jaundice
Cardiology: Normal Sinus Rhythm, S1 and S2
Pulmonary: Clear; Negative Wheezes or Rales
GI: Soft and Flat
Musculoskeletal: No Clubbing, No Cyanosis and No Edema
Extremities: No C/C/E
Neurology: Non Focal
Skin: Warm and Dry
Hematologic / Lymphatic: No Lymphadenopathy
Psych: Calm and Intact Judgement/Insight
Labs
Lab Results
WBC 5.4 10^3/uL (4.8-10.8) 06/17/24 06:25
RBC 2.87 10^6/uL (4.20-5.40) L 06/17/24 06:25
Hgb 9.4 g/dL (12.0-16.0) L 06/17/24 06:25
Hct 27.2 % (37.0-47.0) L 06/17/24 06:25
MCV 94.8 fL (81.0-99.0) 06/17/24 06:25
MCH 32.8 pg (27.0-31.0) H 06/17/24 06:25
MCHC 34.6 g/dL (33.0-37.0) 06/17/24 06:25
RDW 15.9 % (11.5-14.5) H 06/17/24 06:25
Plt Count 17 10^3/uL (130-400) L* D 06/17/24 06:25
MPV 13.3 fL (7.4-10.4) H 06/17/24 06:25
Abs Immat Gran (auto) 0.1 10^3/uL (0-0.05) H 06/17/24 06:25
Absolute Neuts (auto) 4.5 10^3/uL (1.4-6.5) 06/17/24 06:25
Absolute Lymphs (auto) 0.4 10^3/uL (1.2-3.4) L 06/17/24 06:25
Absolute Monos (auto) 0.3 10^3/uL (0.1-0.6) 06/17/24 06:25
Absolute Eos (auto) 0.1 10^3/uL (0-0.7) 06/17/24 06:25
Absolute Basos (auto) 0.0 10^3/uL (0-0.2) 06/17/24 06:25
Immature Gran % 1.1 % (0-0.5) H 06/17/24 06:25
Neutrophils % 82.3 % (42.2-75.2) H 06/17/24 06:25
Lymphocytes % 8.1 % (20.5-51.1) L 06/17/24 06:25
Monocytes % 6.3 % (1.7-9.3) 06/17/24 06:25
Eosinophils % 2.0 % (0-6) 06/17/24 06:25
Basophils % 0.2 % (0-2) 06/17/24 06:25
Creatinine 0.7 mg/dL (0.6-1.0) 06/17/24 06:25
Vital Signs
Vital Signs
Temp Pulse Resp BP Pulse Ox
98.8 F 82 18 131/64 94
06/17/24 11:00 06/17/24 11:00 06/17/24 11:00 06/17/24 11:00 06/17/24 11:00
--- NOTE | 2024-06-17 17:06 | CM ---
Alert awake oriented patient who lives alone in an apartment with 12 steps to enter. She is independent in driving and all activates of daily living.She uses no adaptive devices.Offered Vn she declined need.
Had VN in past . [facility] hx
Pharmacy [facility]
PCP Dr Feli Guzman
PLAN Home with no anticipated needs
[2024-06-17] MEDS: GAMMAGARD 200 IV (20:21)
[2024-06-17] MEDS: COZAAR 100 MG PO (21:50)
--- NOTE | 2024-06-17 23:38 | PTCARENOTE ---
IViG completed w/o any signs or symptoms of reaction (refer to flowsheet)
[2024-06-18] VITALS (12 sets, daily range): BP systolic 119–175; BP diastolic 62–92
[2024-06-18] MEDS: NON-FORMULARY ITEM 1 TABLET PO (05:46)
[2024-06-18] MEDS: OCUVITE SOFTGEL 1 CAP PO (07:41)
[2024-06-18] MEDS: VITAMIN B-12 2000 MCG PO (07:41)
[2024-06-18] MEDS: VITAMIN D3 (cholecalciferol) 50 MCG PO (07:42)
[2024-06-18] MEDS: DELTASONE 60 MG PO (07:42)
[2024-06-18] MEDS: REFRESH EYE DROPS (PF) 1 DROPS BOTH EYES ×2 (07:42→20:34)
[2024-06-18] MEDS: PROTONIX 40 MG PO (07:42)
[2024-06-18] MEDS: CARDIZEM CD 240 MG PO (07:42)
[2024-06-18] MEDS: LIPITOR 10 MG PO (07:42)
[2024-06-18 08:02] LABS: % Basophils 0.2 % (0-2); % Eosinophils 2.5 % (0-6); % Immature Granulocytes 1.7 % (0-0.5); % Lymphocytes 12.7 % (20.5-51.1); % Monocytes 7.6 % (1.7-9.3); % Neutrophils 75.3 % (42.2-75.2); ALT (SGPT) 33 U/L (0-35); AST (SGOT) 38 U/L (14-36); Absolute Eosinophils 0.1 10^3/uL (0-0.7); Absolute Immature Granulocytes 0.1 10^3/uL (0-0.05); Absolute Lymphocytes 0.6 10^3/uL (1.2-3.4); Absolute Monocytes 0.4 10^3/uL (0.1-0.6); Absolute Neutrophils 3.6 10^3/uL (1.4-6.5); Albumin 3.2 g/dl (3.5-5.0); Alkaline Phosphatase 80 U/L (38-126); Blood Urea Nitrogen 28 mg/dl (7-17); Calcium 8.5 mg/dl (8.4-10.2); Carbon Dioxide 26 mmol/L (22-30); Chloride 99 mmol/L (98-107); Estimated Creatinine Clearance 36 ml/min; Glucose 66 mg/dl (70-99); Hematocrit 29.1 % (37.0-47.0); Mean Corp Hgb Conc. 34.4 g/dL (33.0-37.0); Mean Corpuscular Hgb 32.6 pg (27.0-31.0); Mean Corpuscular Volume 94.8 fL (81.0-99.0); Nucleated Red Blood Cells % 0.4 %; Platelet Count 26 10^3/uL (130-400); Potassium 4.3 mmol/L (3.5-5.1); Red Blood Cell Count 3.07 10^6/uL (4.20-5.40); Sodium 134 mmol/L (135-145); Total Bilirubin 0.9 mg/dl (0.2-1.3); Total Protein 7.8 g/dl (6.3-8.2); White Blood Cell Count 4.7 10^3/uL (4.8-10.8); eGFR > 60.00
[2024-06-18] MEDS: TYLENOL 650 MG PO (09:45)
--- NOTE | 2024-06-18 10:20 | W.PN.HOSP.TC ---
Today's Communication/Plan
-
IVIG.
Assessment / Plan
Assessment / Plan
Physical exam:
General: Acute on chronically ill
HEENT: Normocephalic, Atraumatic and Moist Mucous Membranes
Respiratory: Clear to Auscultation; Negative Wheezes, Rales or Rhonchi
Cardiac: Regular Rhythm and S1/S2
GI: Soft, Nontender and Nondistended
Skin: Petechial rash in both lower extremities, ecchymosis at left upper extremity that seems to be from last admission.
Musculoskeletal: No Clubbing, No Cyanosis and No Edema
Neuro: Awake, Alert and Oriented
Psych: Calm
A/P:
Severe thrombocytopenia due to ITP:
Status post platelet transfusion
Continue IV immunoglobulin day 3 out of 5
Continue steroids, taper per hematology recommendations after platelet count stabilizes
Appears to be refractory to steroids as outpatient responsive to IVIG.
Continue Promacta
Platelet count 11 upon admission--> 26 today
Continue to monitor platelet count
Discussed with son yesterday
Discussed with granddaughters at bedside
Hyponatremia:
Mild and stable-can monitor outpatient
Chronic UTI (colonized with E. coli in the past):
No signs of infection at this time.
Anemia:
Continue to monitor hemoglobin
Hypertension:
Continue diltiazem, losartan.
Monitor blood pressure adjust medications according
Hyperlipidemia:
Continue home statin
Rest of medical problems:
Noel's esophagus
Seasonal allergies
Osteoporosis
DVT prophylaxis-SCDs (no pharmacological prophylaxis due to thrombocytopenia)
CODE STATUS-full code
Anticipated Discharge: 24 - 48 hours
Subjective/Interval History
-
Date of Service: June 18, 2024
No new sites of bleeding. Still has some bleeding when brushing her teeth. No chest pain or shortness of breath. Afebrile
Objective Data
-
Labs:
Laboratory Results
06/18/24
05:57
WBC 4.7 L
Hgb 10.0 L
Hct 29.1 L
Plt Count 26 L* D
Sodium 134 L
Potassium 4.3
Chloride 99
Carbon Dioxide 26
BUN 28 H
Creatinine 0.8
Glucose 66 L
Calcium 8.5
Total Bilirubin 0.9
AST 38 H
ALT 33
Alkaline Phosphatase 80
Vital Signs:
Vital Signs
Temp Pulse Resp BP Pulse Ox
98.4 F 81 17 153/63 95
06/18/24 08:00 06/18/24 08:00 06/18/24 08:00 06/18/24 08:00 06/18/24 09:20
I&O
06/17/24 06/18/24 06/19/24
06:59 06:59 06:59
Intake Total 605 / 605 1440 / 1440
Balance 605 / 605 1440 / 1440
[2024-06-18] MEDS: GAMMAGARD 200 IV (20:33)
[2024-06-18] MEDS: COZAAR 100 MG PO (21:20)
[2024-06-18] MEDS: ESTRACE 0.01% VAGINAL CREAM 1 APPLIC VAG (21:21)
[2024-06-18] MEDS: SENOKOT-S 1 TABLET PO (21:39)
[2024-06-19] VITALS (11 sets, daily range): BP systolic 121–168; BP diastolic 60–114
[2024-06-19] MEDS: NON-FORMULARY ITEM 1 TABLET PO (05:53)
[2024-06-19] MEDS: PROTONIX 40 MG PO (07:19)
[2024-06-19] MEDS: REFRESH EYE DROPS (PF) 1 DROPS BOTH EYES ×2 (07:19→20:34)
[2024-06-19] MEDS: OCUVITE SOFTGEL 1 CAP PO (07:19)
[2024-06-19] MEDS: VITAMIN D3 (cholecalciferol) 50 MCG PO (07:19)
[2024-06-19] MEDS: LIPITOR 10 MG PO (07:19)
[2024-06-19] MEDS: CARDIZEM CD 240 MG PO (07:19)
[2024-06-19] MEDS: DELTASONE 60 MG PO (07:19)
[2024-06-19 08:04] LABS: Platelet Count 34 10^3/uL (130-400)
[2024-06-19 08:05] LABS: % Basophils 0.3 % (0-2); % Eosinophils 1.9 % (0-6); % Immature Granulocytes 2.5 % (0-0.5); % Monocytes 7.1 % (1.7-9.3); % Neutrophils 77.2 % (42.2-75.2); Absolute Eosinophils 0.1 10^3/uL (0-0.7); Absolute Immature Granulocytes 0.1 10^3/uL (0-0.05); Absolute Lymphocytes 0.4 10^3/uL (1.2-3.4); Absolute Monocytes 0.3 10^3/uL (0.1-0.6); Absolute Neutrophils 2.8 10^3/uL (1.4-6.5); Hematocrit 28.8 % (37.0-47.0); Hemoglobin 9.9 g/dL (12.0-16.0); Mean Corp Hgb Conc. 34.4 g/dL (33.0-37.0); Mean Corpuscular Hgb 32.5 pg (27.0-31.0); Mean Corpuscular Volume 94.4 fL (81.0-99.0); Nucleated Red Blood Cells % 0 %; Red Blood Cell Count 3.05 10^6/uL (4.20-5.40); Red Cell Dist. Width 15.9 % (11.5-14.5); White Blood Cell Count 3.6 10^3/uL (4.8-10.8)
--- NOTE | 2024-06-19 10:18 | W.PN.HOSP.TC ---
Today's Communication/Plan
-
see bold
Assessment / Plan
Assessment / Plan
Gen: NAD, AAOx3.
Eyes: EOMI, PERRLA, no scleral icterus.
Neck: supple.
CV: RRR, +S1/S2, no m/r/g.
Resp: CTAB, no rales, wheezes, or rhonchi.
Abd: +BS, soft, NT, ND
Skin: No rashes. +ecchymoses
Neuro: CN 2-12 intact, non-focal.
Psych: Normal mood and affect.
Severe thrombocytopenia due to ITP:
-cont IVIG x 5 days (day 4 of 5)
-s/p platelet transfusion
-cont Prednisone
-cont Promacta
-plts improving, now 34
Other problems:
Chronic anemia: Hb stable
Hyponatremia:
Essential hypertension: Continue Cardizem/losartan
Hyperlipidemia: cont statin
Noel's esophagus
Seasonal allergies
Osteoporosis
FULL/SCDs (no pharmacological prophylaxis due to thrombocytopenia)
Anticipated Discharge: Within 24 hours
Subjective/Interval History
-
Date of Service: June 19, 2024
No new complaints.
Objective Data
-
Labs:
Laboratory Results
06/19/24
07:09
WBC 3.6 L
Hgb 9.9 L
Hct 28.8 L
Plt Count 34 L D
Vital Signs:
Vital Signs
Temp Pulse Resp BP Pulse Ox
97.7 F 80 16 159/82 98
06/19/24 07:15 06/19/24 07:15 06/19/24 07:15 06/19/24 07:15 06/19/24 07:15
I&O
06/18/24 06/19/24 06/20/24
06:59 06:59 06:59
Intake Total 1440 / 1440 1320 / 1320
Balance 1440 / 1440 1320 / 1320
[2024-06-19] MEDS: TYLENOL 650 MG PO (11:55)
[2024-06-19] MEDS: GAMMAGARD 200 IV (20:34)
[2024-06-19] MEDS: COZAAR 100 MG PO (22:13)
[2024-06-20] VITALS (10 sets, daily range): BP systolic 119–156; BP diastolic 54–76
[2024-06-20] MEDS: NON-FORMULARY ITEM 1 TABLET PO (05:25)
[2024-06-20 05:40] LABS: % Basophils 0.2 % (0-2); % Eosinophils 1.2 % (0-6); % Immature Granulocytes 1.6 % (0-0.5); % Lymphocytes 6.9 % (20.5-51.1); % Monocytes 4.6 % (1.7-9.3); % Neutrophils 85.5 % (42.2-75.2); Absolute Eosinophils 0.1 10^3/uL (0-0.7); Absolute Immature Granulocytes 0.1 10^3/uL (0-0.05); Absolute Lymphocytes 0.4 10^3/uL (1.2-3.4); Absolute Monocytes 0.2 10^3/uL (0.1-0.6); Absolute Neutrophils 4.3 10^3/uL (1.4-6.5); Hematocrit 27.5 % (37.0-47.0); Hemoglobin 9.6 g/dL (12.0-16.0); Mean Corp Hgb Conc. 34.9 g/dL (33.0-37.0); Mean Corpuscular Hgb 32.7 pg (27.0-31.0); Mean Corpuscular Volume 93.5 fL (81.0-99.0); Mean Platelet Volume 11.7 fL (7.4-10.4); Nucleated Red Blood Cells % 0.4 %; Platelet Count 39 10^3/uL (130-400); Red Blood Cell Count 2.94 10^6/uL (4.20-5.40); Red Cell Dist. Width 15.9 % (11.5-14.5)
[2024-06-20] MEDS: DELTASONE 60 MG PO (07:06)
[2024-06-20] MEDS: VITAMIN D3 (cholecalciferol) 50 MCG PO (07:06)
[2024-06-20] MEDS: PROTONIX 40 MG PO (07:06)
[2024-06-20] MEDS: OCUVITE SOFTGEL 1 CAP PO (07:06)
[2024-06-20] MEDS: CARDIZEM CD 240 MG PO (07:07)
[2024-06-20] MEDS: REFRESH EYE DROPS (PF) 1 DROPS BOTH EYES ×2 (07:07→20:38)
[2024-06-20] MEDS: LIPITOR 10 MG PO (07:07)
[2024-06-20] MEDS: VITAMIN B-12 2000 MCG PO (07:07)
--- NOTE | 2024-06-20 09:48 | W.PN.ONC2 ---
Today's Communication / Plan
-
ok for discharge today from a hematology perspective
continue prednisone 60mg daily
continue promacta 50mg daily
will continue weekly CBC upon discharge
Impression
Impression
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
Plan
Plan
Plan for IVIg 400 mg/kg daily x 5.
Continue predisone 60 mg daily, plan slower taper after discharge this time. Would not taper until platelet count stabilizes.
Continue Promacta 50 mg daily.
May need to maintain IVIg as outpt once every 1-2 weeks until disease stabilizes.
Subjective/Objective
Chief Complaint
denies bleeding
afebrile no hypoxia or hypotension
Hgb stable >9.5g/dL
platelets improved to 39,000. Day 5 IVIG, on pred 60mg daily, on Promacta 50mg daily
normal LFTs
Subjective
no new complaints
Daughter at bedside
Vital Signs:
Vital Signs
Temp Pulse Resp BP Pulse Ox
98.0 F 72 17 156/70 100
06/19/24 23:45 06/20/24 00:20 06/19/24 15:25 06/20/24 00:20 06/19/24 15:25
Lab Results:
Laboratory Data
WBC 5.0 10^3/uL (4.8-10.8) 06/20/24 05:11
Hgb 9.6 g/dL (12.0-16.0) L 06/20/24 05:11
Plt Count 39 10^3/uL (130-400) L 06/20/24 05:11
APTT Cancelled 06/16/24 14:07
eGFR > 60.00 06/18/24 05:57
Physical Exam
General: Well Developed, Well Nourished
HEENT: Moist Mucous Membranes; Negative Jaundice
Cardiology: Normal Sinus Rhythm, S1 and S2
Pulmonary: Clear; Negative Wheezes or Rales
GI: Soft and Flat
Musculoskeletal: No Clubbing, No Cyanosis and No Edema
Extremities: No C/C/E
Neurology: Non Focal
Skin: Warm and Dry
Hematologic / Lymphatic: No Lymphadenopathy
Review of Systems
Review of Systems
ROS notable for subjective, otherwise negative
--- NOTE | 2024-06-20 10:06 | W.PN.HOSP.TC ---
Today's Communication/Plan
-
See bold
Assessment / Plan
Assessment / Plan
Gen: NAD, AAOx3.
Eyes: EOMI, PERRLA, no scleral icterus.
Neck: supple.
CV: Remains RRR, +S1/S2, no m/r/g.
Resp: Remains CTAB, no rales, wheezes, or rhonchi.
Abd: +BS, soft, NT, ND
Skin: No rashes. Remains +ecchymoses
Neuro: CN 2-12 intact, non-focal.
Psych: Normal mood and affect.
Severe thrombocytopenia due to ITP:
-cont IVIG x 5 days (day 5 of 5)
-s/p platelet transfusion
-cont Prednisone
-cont Promacta
-plts improving, now 39
Other problems:
Chronic anemia: Hb stable
Hyponatremia:
Essential hypertension: Continue Cardizem/losartan
Hyperlipidemia: cont statin
Noel's esophagus
Seasonal allergies
Osteoporosis
FULL/SCDs (no pharmacological prophylaxis due to thrombocytopenia)
Anticipated Discharge: Within 24 hours
Subjective/Interval History
-
Date of Service: June 20, 2024
No new complaints.
Objective Data
-
Labs:
Laboratory Results
06/20/24
05:11
WBC 5.0
Hgb 9.6 L
Hct 27.5 L
Plt Count 39 L
Vital Signs:
Vital Signs
Temp Pulse Resp BP Pulse Ox
98.0 F 72 17 156/70 100
06/19/24 23:45 06/20/24 00:20 06/19/24 15:25 06/20/24 00:20 06/19/24 15:25
I&O
06/19/24 06/20/24 06/21/24
06:59 06:59 06:59
Intake Total 1320 / 1320 600 / 600
Balance 1320 / 1320 600 / 600
--- NOTE | 2024-06-20 11:02 | CM ---
Patient seen at bedside. Patient for discharge tomorrow. IMM signed and form placed on chart. patient declined VN and plan is for discharge home with family. CM will continue to follow for discharge planning needs.
Plan: home with no needs anticipated
[2024-06-20] MEDS: SENOKOT-S 1 TABLET PO (20:36)
[2024-06-20] MEDS: TYLENOL 650 MG PO (20:37)
[2024-06-20] MEDS: GAMMAGARD 200 IV (20:38)
[2024-06-20] MEDS: COZAAR 100 MG PO (22:01)
[2024-06-21 00:49] VITALS: BP 144/75
[2024-06-21] MEDS: NON-FORMULARY ITEM 1 TABLET PO (06:08)
[2024-06-21 07:00] VITALS: BP 139/67
[2024-06-21] MEDS: DELTASONE 60 MG PO (07:30)
[2024-06-21] MEDS: PROTONIX 40 MG PO (07:30)
[2024-06-21] MEDS: REFRESH EYE DROPS (PF) 1 DROPS BOTH EYES (07:30)
[2024-06-21] MEDS: LIPITOR 10 MG PO (07:30)
[2024-06-21] MEDS: VITAMIN D3 (cholecalciferol) 50 MCG PO (07:30)
[2024-06-21] MEDS: OCUVITE SOFTGEL 1 CAP PO (07:31)
[2024-06-21] MEDS: CARDIZEM CD 240 MG PO (07:31)
--- NOTE | 2024-06-21 08:36 | W.PN.HOSP.TC ---
Today's Communication/Plan
-
d/c
Assessment / Plan
Assessment / Plan
Gen: NAD, AAOx3.
Eyes: EOMI, PERRLA, no scleral icterus.
Neck: supple.
CV: Continues to remain RRR, +S1/S2, no m/r/g.
Resp: Continues to remain CTAB, no rales, wheezes, or rhonchi.
Abd: +BS, soft, NT, ND
Skin: No rashes. Continues to remain +ecchymoses
Neuro: CN 2-12 intact, non-focal.
Psych: Normal mood and affect.
Severe thrombocytopenia due to ITP:
-completed 5 days IVIG
-s/p platelet transfusion
-cont Prednisone
-cont Promacta
-plts improving, now 39
Other problems:
Chronic anemia: Hb stable
Hyponatremia:
Essential hypertension: Continue Cardizem/losartan
Hyperlipidemia: cont statin
Noel's esophagus
Seasonal allergies
Osteoporosis
FULL/SCDs (no pharmacological prophylaxis due to thrombocytopenia)
Total time spent on d/c = 31 min. This included today's physical exam, progress note, review of laboratory and diagnostic data, preparation of discharge documents and prescriptions, and discussions about the pt's hospital course and discharge plan
with the patient and other medical transcriber involved in the patient's care.
Anticipated Discharge: Today
Subjective/Interval History
-
Date of Service: June 21, 2024
No new complaints other than back discomfort from the hospital bed.
Objective Data
-
Vital Signs:
Vital Signs
Temp Pulse Resp BP Pulse Ox
97.8 F 94 18 144/75 98
06/21/24 00:49 06/21/24 00:49 06/21/24 00:49 06/21/24 00:49 06/21/24 00:49
I&O
06/20/24 06/21/24 06/22/24
06:59 06:59 06:59
Intake Total 600 / 600 620 / 620 240 / 240
Balance 600 / 600 620 / 620 240 / 240
--- NOTE | 2024-06-21 13:57 | W.DCSUMMARY ---
Discharge Summary
Discharge Data
Date of Admission: 06/16/24
Date of Discharge: 06/21/24
-
Pending Results: No
Hospital Course
Primary diagnoses:
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
Secondary diagnoses:
Chronic anemia
Hyponatremia
Essential hypertension
Hyperlipidemia
Noel's esophagus
Seasonal allergies
Osteoporosis
Consultants:
Hematology/oncology
Imaging:
None
Hospital course: 88-year-old female who presented with thrombocytopenia sound in the H&P on admission. She underwent platelet transfusion was started on prednisone. Her Promacta was continued. She received 5 days of IVIG. Her platelets improved
to 39 and she was discharged in medically stable condition.
Discharge Plan
-
Patient Disposition: Home (Routine Discharge)
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
Condition: Good
Diet: No restrictions
Activity: As tolerated
Driving Restrictions: As prior to admission
Referrals:
Feli Guzman, DO [Family Provider] - in less than 1 week
Prescriptions:
New
prednisone 20 mg Tablet
60 mg PO DAILY Qty: 180 0RF
Continued
atorvastatin 10 MG tablet
10 mg PO DAILY
diltiazem HCl [Tiadylt ER] 240 MG capsule,extended release 24 hr
240 mg PO DAILY
Prolia 60 MG/ML syringe
60 mg SC [id number]
PreserVision AREDS-2 1 EACH capsule
1 cap PO DAILY
clobetasol 0.05 % Cream
1 applic TOPICAL .2X WEEKLY
estradiol 0.01 % (0.1 mg/gram) Cream
1 g VAGINAL .2X WEEKLY
Systane (PF) 0.4-0.3 % Dropperette
1 drp BOTH EYES BID
cyanocobalamin (vitamin B-12) 1,000 mcg Tablet
1,000 mcg PO DAILY
omeprazole 20 mg Capsule,Delayed Release(Dr/Ec)
20 mg PO DAILY
Debrox 6.5 % Drops
5 drp EACH EAR WEEKLY
losartan 100 mg tablet
100 mg PO HS
cholecalciferol (vitamin D3) 50 mcg (2,000 unit) Tablet
50 mcg PO DAILY
cranberry 450 mg Tablet
450 mg PO DAILY
Promacta
1 tab PO DAILY Qty: 20 0RF
methylprednisolone 4 mg tablets,dose pack
4 mg PO PER PKG DIR
Discharge Orders:
Discharge Patient (As Directed); Ordered 06/21/24
Ordered By: Omar Spencer
Discharge Date and Time
Discharge Date/Time: 06/21/24 11:07
Print Language: SLOVENIAN
== END 2024-06-21 11:07 | disposition home or self-care (01) | DRG 813 ==
LOC: 3 WEST ACU 19:21
PROVIDERS: Clinical Nurse Specialist Family Health; ADMITTING PHYSICIAN Hospitalist; ATTENDING PHYSICIAN Internal Medicine; CONSULT PHYSICIAN Internal Medicine Hematology & Oncology; EMERGENCY PHYSICIAN Emergency Medicine; FAMILY PHYSICIAN Family Medicine
PROC: 30233R1 Transfusion of Nonautologous Platelets into Peripheral Vein, Percutaneous Approach (ICD-10-PCS; 2024-06-16)
PROC: 30233S1 Transfusion of Nonautologous Globulin into Peripheral Vein, Percutaneous Approach (ICD-10-PCS; 2024-06-16)
DX: D69.3 Immune thrombocytopenic purpura (principal); E87.1 Hypo-osmolality and hyponatremia; N39.0 Urinary tract infection, site not specified; D64.9 Anemia, unspecified; I10 Essential (primary) hypertension; E78.00 Pure hypercholesterolemia, unspecified; K22.70 Barrett's esophagus without dysplasia; M81.0 Age-related osteoporosis without current pathological fracture; R32 Unspecified urinary incontinence; Z87.440 Personal history of urinary (tract) infections
CPT/HCPCS: 36415; 80053; 85025; 86850; 86900; 86901; 97116; 97161; 97165; 97530; 99285; J1569; P9073

== ENCOUNTER → 2024-06-21 14:59 | Outpatient (REF) | payer MEDICARE, BC, SELFPAY ==
[2024-06-21 16:02] LABS: % Basophils 0.3 % (0-2); % Eosinophils 0.1 % (0-6); % Immature Granulocytes 1.5 % (0-0.5); % Lymphocytes 8.5 % (20.5-51.1); % Monocytes 2.8 % (1.7-9.3); % Neutrophils 86.8 % (42.2-75.2); Absolute Immature Granulocytes 0.1 10^3/uL (0-0.05); Absolute Lymphocytes 0.6 10^3/uL (1.2-3.4); Absolute Monocytes 0.2 10^3/uL (0.1-0.6); Mean Corp Hgb Conc. 34.4 g/dL (33.0-37.0); Mean Corpuscular Volume 96.1 fL (81.0-99.0); Mean Platelet Volume 12.3 fL (7.4-10.4); Nucleated Red Blood Cells % 0.3 %; Platelet Count 61 10^3/uL (130-400); Red Blood Cell Count 3.33 10^6/uL (4.20-5.40); Red Cell Dist. Width 16.3 % (11.5-14.5); White Blood Cell Count 6.9 10^3/uL (4.8-10.8)
== END ==
LOC: REG 14:59
PROVIDERS: ATTENDING PHYSICIAN Internal Medicine Hematology & Oncology; FAMILY PHYSICIAN Family Medicine
DX: D69.3 Immune thrombocytopenic purpura (principal)
CPT/HCPCS: 36415; 85025

== ENCOUNTER → 2024-06-26 12:08 | Outpatient (REF) | payer MEDICARE, BC, SELFPAY ==
[2024-06-26 16:52] LABS: % Basophils 0.3 % (0-2); % Eosinophils 1.1 % (0-6); % Immature Granulocytes 1.2 % (0-0.5); % Lymphocytes 5.6 % (20.5-51.1); % Monocytes 5.6 % (1.7-9.3); % Neutrophils 86.2 % (42.2-75.2); Absolute Eosinophils 0.1 10^3/uL (0-0.7); Absolute Immature Granulocytes 0.1 10^3/uL (0-0.05); Absolute Lymphocytes 0.4 10^3/uL (1.2-3.4); Absolute Monocytes 0.4 10^3/uL (0.1-0.6); Absolute Neutrophils 5.6 10^3/uL (1.4-6.5); Hematocrit 28.9 % (37.0-47.0); Hemoglobin 9.8 g/dL (12.0-16.0); Mean Corp Hgb Conc. 33.9 g/dL (33.0-37.0); Mean Corpuscular Hgb 32.8 pg (27.0-31.0); Mean Corpuscular Volume 96.7 fL (81.0-99.0); Mean Platelet Volume 11.9 fL (7.4-10.4); Nucleated Red Blood Cells % 0.5 %; Platelet Count 66 10^3/uL (130-400); Red Blood Cell Count 2.99 10^6/uL (4.20-5.40); Red Cell Dist. Width 16.7 % (11.5-14.5); White Blood Cell Count 6.5 10^3/uL (4.8-10.8)
== END ==
LOC: HWLAB 12:08
PROVIDERS: ATTENDING PHYSICIAN Internal Medicine Hematology & Oncology; FAMILY PHYSICIAN Family Medicine
DX: D69.3 Immune thrombocytopenic purpura (principal)
CPT/HCPCS: 36415; 85025

== ENCOUNTER → 2024-06-29 10:09 | Outpatient (REF) | payer MEDICARE, BC, SELFPAY ==
[2024-06-29 10:42] LABS: % Basophils 0.5 % (0-2); % Eosinophils 4.2 % (0-6); % Immature Granulocytes 2.4 % (0-0.5); % Lymphocytes 12.2 % (20.5-51.1); % Monocytes 6.1 % (1.7-9.3); % Neutrophils 74.6 % (42.2-75.2); Absolute Eosinophils 0.2 10^3/uL (0-0.7); Absolute Immature Granulocytes 0.1 10^3/uL (0-0.05); Absolute Lymphocytes 0.5 10^3/uL (1.2-3.4); Absolute Monocytes 0.3 10^3/uL (0.1-0.6); Absolute Neutrophils 3.1 10^3/uL (1.4-6.5); Hematocrit 29.2 % (37.0-47.0); Hemoglobin 9.8 g/dL (12.0-16.0); Mean Corp Hgb Conc. 33.6 g/dL (33.0-37.0); Mean Corpuscular Hgb 32.5 pg (27.0-31.0); Mean Corpuscular Volume 96.7 fL (81.0-99.0); Nucleated Red Blood Cells % 0.7 %; Platelet Count 41 10^3/uL (130-400); Red Blood Cell Count 3.02 10^6/uL (4.20-5.40); Red Cell Dist. Width 16.8 % (11.5-14.5); White Blood Cell Count 4.1 10^3/uL (4.8-10.8)
== END ==
LOC: REG 10:09
PROVIDERS: ATTENDING PHYSICIAN Internal Medicine Hematology & Oncology; FAMILY PHYSICIAN Family Medicine
DX: D69.3 Immune thrombocytopenic purpura (principal)
CPT/HCPCS: 36415; 85025

== ENCOUNTER → 2024-07-03 06:51 | Outpatient (REF) | payer MEDICARE, BC, SELFPAY ==
[2024-07-03 07:40] VITALS: BP 185/74; BP_SYST 64
[2024-07-03 08:02] LABS: % Basophils 0.7 % (0-2); % Eosinophils 3.8 % (0-6); % Lymphocytes 20.7 % (20.5-51.1); % Monocytes 6.1 % (1.7-9.3); % Neutrophils 64.7 % (42.2-75.2); Absolute Eosinophils 0.2 10^3/uL (0-0.7); Absolute Immature Granulocytes 0.2 10^3/uL (0-0.05); Absolute Lymphocytes 0.9 10^3/uL (1.2-3.4); Absolute Monocytes 0.3 10^3/uL (0.1-0.6); Absolute Neutrophils 2.9 10^3/uL (1.4-6.5); Hematocrit 30.6 % (37.0-47.0); Hemoglobin 10.4 g/dL (12.0-16.0); Mean Corpuscular Hgb 32.9 pg (27.0-31.0); Mean Corpuscular Volume 96.8 fL (81.0-99.0); Mean Platelet Volume 12.4 fL (7.4-10.4); Nucleated Red Blood Cells % 1.3 %; Platelet Count 50 10^3/uL (130-400); Red Blood Cell Count 3.16 10^6/uL (4.20-5.40); Red Cell Dist. Width 17.2 % (11.5-14.5); White Blood Cell Count 4.5 10^3/uL (4.8-10.8)
[2024-07-03] MEDS: FLUSH (NSS) 1 FLUSH IV (08:27)
[2024-07-03] MEDS: NSS (PRESERVATIVE FREE) 0.25 ML IV (08:27)
[2024-07-03] MEDS: ATIVAN 0.5 MG IV (08:27)
[2024-07-03 09:10] VITALS: BP 149/63; BP_SYST 66
[2024-07-03 09:15] VITALS: BP 152/73; BP_SYST 68
[2024-07-03 09:20] VITALS: BP 142/64; BP_SYST 65
[2024-07-03 09:25] VITALS: BP 146/58; BP_SYST 66
[2024-07-03 09:53] VITALS: BP 146/58
== END ==
LOC: RADI 06:51
PROVIDERS: ATTENDING PHYSICIAN Internal Medicine Hematology & Oncology; FAMILY PHYSICIAN Family Medicine
DX: D69.3 Immune thrombocytopenic purpura (principal); D68.8 Other specified coagulation defects
CPT/HCPCS: 88305; 88311; 88312; 36415; 38222; 77012; 85025; 88313

== ENCOUNTER → 2024-07-06 09:57 | Outpatient (REF) | payer MEDICARE, BC, SELFPAY ==
[2024-07-06 12:22] LABS: % Basophils 0.4 % (0-2); % Eosinophils 2.1 % (0-6); % Immature Granulocytes 1.9 % (0-0.5); % Lymphocytes 16.1 % (20.5-51.1); % Monocytes 5.3 % (1.7-9.3); % Neutrophils 74.2 % (42.2-75.2); Absolute Eosinophils 0.2 10^3/uL (0-0.7); Absolute Immature Granulocytes 0.1 10^3/uL (0-0.05); Absolute Lymphocytes 1.1 10^3/uL (1.2-3.4); Absolute Monocytes 0.4 10^3/uL (0.1-0.6); Absolute Neutrophils 5.2 10^3/uL (1.4-6.5); Hematocrit 31.1 % (37.0-47.0); Hemoglobin 10.5 g/dL (12.0-16.0); Mean Corp Hgb Conc. 33.8 g/dL (33.0-37.0); Mean Corpuscular Hgb 33.7 pg (27.0-31.0); Mean Corpuscular Volume 99.7 fL (81.0-99.0); Mean Platelet Volume 11.4 fL (7.4-10.4); Nucleated Red Blood Cells % 1.1 %; Platelet Count 79 10^3/uL (130-400); Red Blood Cell Count 3.12 10^6/uL (4.20-5.40); Red Cell Dist. Width 17.3 % (11.5-14.5)
== END ==
LOC: HWLAB 09:57
PROVIDERS: ATTENDING PHYSICIAN Internal Medicine Hematology & Oncology; FAMILY PHYSICIAN Family Medicine
DX: D69.3 Immune thrombocytopenic purpura (principal)
CPT/HCPCS: 36415; 85025

== ENCOUNTER → 2024-07-10 09:38 | Outpatient (REF) | payer MEDICARE, BC, SELFPAY ==
[2024-07-10 12:20] LABS: % Basophils 0.2 % (0-2); % Eosinophils 0.6 % (0-6); % Immature Granulocytes 1.5 % (0-0.5); % Lymphocytes 13.5 % (20.5-51.1); % Monocytes 6.7 % (1.7-9.3); % Neutrophils 77.5 % (42.2-75.2); Absolute Eosinophils 0.1 10^3/uL (0-0.7); Absolute Immature Granulocytes 0.1 10^3/uL (0-0.05); Absolute Lymphocytes 1.3 10^3/uL (1.2-3.4); Absolute Monocytes 0.6 10^3/uL (0.1-0.6); Absolute Neutrophils 7.2 10^3/uL (1.4-6.5); Hemoglobin 9.8 g/dL (12.0-16.0); Mean Corp Hgb Conc. 32.7 g/dL (33.0-37.0); Mean Corpuscular Hgb 32.6 pg (27.0-31.0); Mean Corpuscular Volume 99.7 fL (81.0-99.0); Mean Platelet Volume 11.2 fL (7.4-10.4); Platelet Count 118 10^3/uL (130-400); Red Blood Cell Count 3.01 10^6/uL (4.20-5.40); Red Cell Dist. Width 17.8 % (11.5-14.5); White Blood Cell Count 9.3 10^3/uL (4.8-10.8)
== END ==
LOC: HWLAB 09:38
PROVIDERS: ATTENDING PHYSICIAN Internal Medicine Hematology & Oncology
DX: D69.3 Immune thrombocytopenic purpura (principal)
CPT/HCPCS: 36415; 85025

== ENCOUNTER → 2024-07-13 08:42 | Outpatient (REF) | payer MEDICARE, BC, SELFPAY ==
[2024-07-13 09:11] LABS: % Basophils 0.1 % (0-2); % Eosinophils 0.6 % (0-6); % Immature Granulocytes 1.9 % (0-0.5); % Lymphocytes 16.8 % (20.5-51.1); % Monocytes 6.8 % (1.7-9.3); % Neutrophils 73.8 % (42.2-75.2); Absolute Eosinophils 0.1 10^3/uL (0-0.7); Absolute Immature Granulocytes 0.2 10^3/uL (0-0.05); Absolute Lymphocytes 1.6 10^3/uL (1.2-3.4); Absolute Monocytes 0.6 10^3/uL (0.1-0.6); Absolute Neutrophils 6.9 10^3/uL (1.4-6.5); Hematocrit 30.6 % (37.0-47.0); Hemoglobin 10.2 g/dL (12.0-16.0); Mean Corp Hgb Conc. 33.3 g/dL (33.0-37.0); Mean Platelet Volume 10.7 fL (7.4-10.4); Nucleated Red Blood Cells % 0.6 %; Platelet Count 138 10^3/uL (130-400); Red Cell Dist. Width 17.6 % (11.5-14.5); White Blood Cell Count 9.4 10^3/uL (4.8-10.8)
== END ==
LOC: REG 08:42
PROVIDERS: ATTENDING PHYSICIAN Internal Medicine Hematology & Oncology; FAMILY PHYSICIAN Internal Medicine
DX: D69.3 Immune thrombocytopenic purpura (principal)
CPT/HCPCS: 36415; 85025

== ENCOUNTER → 2024-07-20 10:25 | Outpatient (REF) | payer MEDICARE, BC, SELFPAY ==
[2024-07-20 12:09] LABS: % Basophils 0.7 % (0-2); % Eosinophils 1.6 % (0-6); % Immature Granulocytes 2.3 % (0-0.5); % Lymphocytes 18.2 % (20.5-51.1); % Monocytes 6.4 % (1.7-9.3); % Neutrophils 70.8 % (42.2-75.2); Absolute Basophils 0.1 10^3/uL (0-0.2); Absolute Eosinophils 0.2 10^3/uL (0-0.7); Absolute Immature Granulocytes 0.2 10^3/uL (0-0.05); Absolute Lymphocytes 1.7 10^3/uL (1.2-3.4); Absolute Monocytes 0.6 10^3/uL (0.1-0.6); Absolute Neutrophils 6.5 10^3/uL (1.4-6.5); Hematocrit 31.2 % (37.0-47.0); Hemoglobin 10.3 g/dL (12.0-16.0); Mean Corpuscular Hgb 32.8 pg (27.0-31.0); Mean Corpuscular Volume 99.4 fL (81.0-99.0); Mean Platelet Volume 10.5 fL (7.4-10.4); Nucleated Red Blood Cells % 0.3 %; Platelet Count 164 10^3/uL (130-400); Red Blood Cell Count 3.14 10^6/uL (4.20-5.40); Red Cell Dist. Width 17.4 % (11.5-14.5); White Blood Cell Count 9.1 10^3/uL (4.8-10.8)
== END ==
LOC: HWLAB 10:25
PROVIDERS: ATTENDING PHYSICIAN Internal Medicine Hematology & Oncology; FAMILY PHYSICIAN Family Medicine
DX: D69.3 Immune thrombocytopenic purpura (principal)
CPT/HCPCS: 36415; 85025

== ENCOUNTER → 2024-07-27 10:06 | Outpatient (REF) | payer MEDICARE, BC, SELFPAY ==
[2024-07-27 11:49] LABS: % Basophils 0.7 % (0-2); % Eosinophils 1.7 % (0-6); % Lymphocytes 24.2 % (20.5-51.1); % Monocytes 9.2 % (1.7-9.3); % Neutrophils 62.2 % (42.2-75.2); Absolute Basophils 0.1 10^3/uL (0-0.2); Absolute Eosinophils 0.2 10^3/uL (0-0.7); Absolute Immature Granulocytes 0.2 10^3/uL (0-0.05); Absolute Lymphocytes 2.6 10^3/uL (1.2-3.4); Absolute Neutrophils 6.7 10^3/uL (1.4-6.5); Hematocrit 30.4 % (37.0-47.0); Mean Corp Hgb Conc. 32.9 g/dL (33.0-37.0); Mean Corpuscular Hgb 34.1 pg (27.0-31.0); Mean Corpuscular Volume 103.8 fL (81.0-99.0); Mean Platelet Volume 10.7 fL (7.4-10.4); Nucleated Red Blood Cells % 0.2 %; Platelet Count 207 10^3/uL (130-400); Red Blood Cell Count 2.93 10^6/uL (4.20-5.40); White Blood Cell Count 10.7 10^3/uL (4.8-10.8)
== END ==
LOC: HWLAB 10:06
PROVIDERS: ATTENDING PHYSICIAN Internal Medicine Hematology & Oncology; FAMILY PHYSICIAN Family Medicine
DX: D69.3 Immune thrombocytopenic purpura (principal)
CPT/HCPCS: 36415; 85025

== ENCOUNTER → 2024-08-03 09:55 | Outpatient (REF) | payer MEDICARE, BC, SELFPAY ==
[2024-08-03 12:24] LABS: % Basophils 0.7 % (0-2); % Eosinophils 1.3 % (0-6); % Immature Granulocytes 1.9 % (0-0.5); % Lymphocytes 27.6 % (20.5-51.1); % Monocytes 11.6 % (1.7-9.3); % Neutrophils 56.9 % (42.2-75.2); Absolute Basophils 0.1 10^3/uL (0-0.2); Absolute Eosinophils 0.1 10^3/uL (0-0.7); Absolute Immature Granulocytes 0.2 10^3/uL (0-0.05); Absolute Lymphocytes 2.8 10^3/uL (1.2-3.4); Absolute Monocytes 1.2 10^3/uL (0.1-0.6); Absolute Neutrophils 5.9 10^3/uL (1.4-6.5); Hematocrit 30.3 % (37.0-47.0); Hemoglobin 9.9 g/dL (12.0-16.0); Mean Corp Hgb Conc. 32.7 g/dL (33.0-37.0); Mean Corpuscular Hgb 33.2 pg (27.0-31.0); Mean Corpuscular Volume 101.7 fL (81.0-99.0); Mean Platelet Volume 9.8 fL (7.4-10.4); Nucleated Red Blood Cells % 0 %; Platelet Count 336 10^3/uL (130-400); Red Blood Cell Count 2.98 10^6/uL (4.20-5.40); Red Cell Dist. Width 16.2 % (11.5-14.5); White Blood Cell Count 10.3 10^3/uL (4.8-10.8)
== END ==
LOC: HWLAB 09:55
PROVIDERS: ATTENDING PHYSICIAN Internal Medicine Hematology & Oncology; FAMILY PHYSICIAN Family Medicine
DX: D69.3 Immune thrombocytopenic purpura (principal)
CPT/HCPCS: 36415; 85025

== ENCOUNTER → 2024-08-10 11:11 | Outpatient (REF) | payer MEDICARE, BC, SELFPAY ==
[2024-08-10 11:57] LABS: % Eosinophils 2.9 % (0-6); % Immature Granulocytes 1.6 % (0-0.5); % Lymphocytes 28.6 % (20.5-51.1); % Monocytes 13.5 % (1.7-9.3); % Neutrophils 52.4 % (42.2-75.2); Absolute Basophils 0.1 10^3/uL (0-0.2); Absolute Eosinophils 0.3 10^3/uL (0-0.7); Absolute Immature Granulocytes 0.2 10^3/uL (0-0.05); Absolute Lymphocytes 2.7 10^3/uL (1.2-3.4); Absolute Monocytes 1.3 10^3/uL (0.1-0.6); Absolute Neutrophils 4.9 10^3/uL (1.4-6.5); Hematocrit 30.2 % (37.0-47.0); Hemoglobin 9.8 g/dL (12.0-16.0); Mean Corp Hgb Conc. 32.5 g/dL (33.0-37.0); Mean Corpuscular Volume 101.7 fL (81.0-99.0); Mean Platelet Volume 9.3 fL (7.4-10.4); Nucleated Red Blood Cells % 0 %; Platelet Count 250 10^3/uL (130-400); Red Blood Cell Count 2.97 10^6/uL (4.20-5.40); Red Cell Dist. Width 15.3 % (11.5-14.5); White Blood Cell Count 9.4 10^3/uL (4.8-10.8)
== END ==
LOC: REG 11:11
PROVIDERS: ATTENDING PHYSICIAN Internal Medicine Hematology & Oncology; FAMILY PHYSICIAN Family Medicine
DX: D69.3 Immune thrombocytopenic purpura (principal)
CPT/HCPCS: 36415; 85025

== ENCOUNTER → 2024-08-10 11:40 | Outpatient (REF) | payer MEDICARE, BC, SELFPAY | LOC: WOUND 11:40 | PROVIDERS: ATTENDING PHYSICIAN Surgery; FAMILY PHYSICIAN Family Medicine | DX: L97.322 Non-pressure chronic ulcer of left ankle with fat layer exposed (principal); I87.2 Venous insufficiency (chronic) (peripheral); I73.9 Peripheral vascular disease, unspecified; D69.6 Thrombocytopenia, unspecified; Z79.52 Long term (current) use of systemic steroids | CPT/HCPCS: 11042; 99204 ==

== ENCOUNTER → 2024-08-17 09:36 | Outpatient (REF) | payer MEDICARE, BC, SELFPAY ==
[2024-08-17 10:25] LABS: % Basophils 0.9 % (0-2); % Immature Granulocytes 1.4 % (0-0.5); % Lymphocytes 30.3 % (20.5-51.1); % Monocytes 10.4 % (1.7-9.3); Absolute Basophils 0.1 10^3/uL (0-0.2); Absolute Eosinophils 0.3 10^3/uL (0-0.7); Absolute Immature Granulocytes 0.1 10^3/uL (0-0.05); Absolute Lymphocytes 2.8 10^3/uL (1.2-3.4); Hemoglobin 10.4 g/dL (12.0-16.0); Mean Corp Hgb Conc. 32.5 g/dL (33.0-37.0); Mean Corpuscular Hgb 32.6 pg (27.0-31.0); Mean Corpuscular Volume 100.3 fL (81.0-99.0); Mean Platelet Volume 9.6 fL (7.4-10.4); Nucleated Red Blood Cells % 0.2 %; Platelet Count 217 10^3/uL (130-400); Red Blood Cell Count 3.19 10^6/uL (4.20-5.40); Red Cell Dist. Width 14.6 % (11.5-14.5); White Blood Cell Count 9.3 10^3/uL (4.8-10.8)
[2024-08-17 10:53] LABS: ALT (SGPT) 22 U/L (0-35); AST (SGOT) 33 U/L (14-36); Albumin 3.8 g/dl (3.5-5.0); Alkaline Phosphatase 81 U/L (38-126); Blood Urea Nitrogen 13 mg/dl (7-17); Calcium 9.1 mg/dl (8.4-10.2); Carbon Dioxide 26 mmol/L (22-30); Chloride 102 mmol/L (98-107); Glucose 88 mg/dl (70-99); HDL Cholesterol 51 mg/dl; LDL Cholesterol, Calculated 87 mg/dl; Potassium 4.3 mmol/L (3.5-5.1); Sodium 139 mmol/L (135-145); Total Bilirubin 0.3 mg/dl (0.2-1.3); Total Cholesterol 162 mg/dl (50-199); Total Protein 6.4 g/dl (6.3-8.2); Triglyceride 122 mg/dl (10-149); Very Low Density Lipoprotein 24 mg/dl (0-30); eGFR > 60.00
[2024-08-17 11:40] LABS: Vitamin B12 > 1000 pg/ml (239-931)
== END ==
LOC: REG 09:36
PROVIDERS: ATTENDING PHYSICIAN Surgery; FAMILY PHYSICIAN Family Medicine; OTHER PHYSICIAN Internal Medicine Hematology & Oncology
DX: Z00.00 Encounter for general adult medical examination without abnormal findings (principal); I10 Essential (primary) hypertension; E78.5 Hyperlipidemia, unspecified; K22.70 Barrett's esophagus without dysplasia; D51.8 Other vitamin B12 deficiency anemias; D69.3 Immune thrombocytopenic purpura
CPT/HCPCS: 36415; 80053; 80061; 82607; 85025

== ENCOUNTER → 2024-08-17 10:37 | Outpatient (REF) | payer MEDICARE, BC, SELFPAY | LOC: WOUND 10:37 | PROVIDERS: ATTENDING PHYSICIAN Surgery | DX: L97.322 Non-pressure chronic ulcer of left ankle with fat layer exposed (principal); I87.2 Venous insufficiency (chronic) (peripheral); I73.9 Peripheral vascular disease, unspecified; D69.6 Thrombocytopenia, unspecified; Z79.52 Long term (current) use of systemic steroids | CPT/HCPCS: 11042 ==

== ENCOUNTER → 2024-08-22 09:40 | Outpatient (REF) | payer MEDICARE, BC, SELFPAY | LOC: RAD 09:40 | PROVIDERS: ATTENDING PHYSICIAN Surgery; FAMILY PHYSICIAN Family Medicine | DX: L97.322 Non-pressure chronic ulcer of left ankle with fat layer exposed (principal); I73.9 Peripheral vascular disease, unspecified; I87.2 Venous insufficiency (chronic) (peripheral) | CPT/HCPCS: 93922; 93925; 93971 ==

== ENCOUNTER → 2024-08-24 10:58 | Outpatient (REF) | payer MEDICARE, BC, SELFPAY ==
[2024-08-24 11:36] LABS: % Basophils 0.7 % (0-2); % Eosinophils 3.6 % (0-6); % Lymphocytes 32.3 % (20.5-51.1); % Monocytes 14.7 % (1.7-9.3); % Neutrophils 46.7 % (42.2-75.2); Absolute Basophils 0.1 10^3/uL (0-0.2); Absolute Eosinophils 0.3 10^3/uL (0-0.7); Absolute Immature Granulocytes 0.2 10^3/uL (0-0.05); Absolute Lymphocytes 2.9 10^3/uL (1.2-3.4); Absolute Monocytes 1.3 10^3/uL (0.1-0.6); Absolute Neutrophils 4.2 10^3/uL (1.4-6.5); Hematocrit 29.4 % (37.0-47.0); Hemoglobin 9.7 g/dL (12.0-16.0); Mean Platelet Volume 9.3 fL (7.4-10.4); Nucleated Red Blood Cells % 0 %; Platelet Count 253 10^3/uL (130-400); Red Blood Cell Count 2.94 10^6/uL (4.20-5.40); Red Cell Dist. Width 14.2 % (11.5-14.5)
== END ==
LOC: REG 10:58
PROVIDERS: ATTENDING PHYSICIAN Surgery; FAMILY PHYSICIAN Family Medicine; OTHER PHYSICIAN Internal Medicine Hematology & Oncology
DX: D69.3 Immune thrombocytopenic purpura (principal)
CPT/HCPCS: 36415; 85025

== ENCOUNTER → 2024-08-24 13:52 | Outpatient (REF) | payer MEDICARE, BC, SELFPAY | LOC: WOUND 13:52 | PROVIDERS: ATTENDING PHYSICIAN Surgery; FAMILY PHYSICIAN Family Medicine | DX: L97.322 Non-pressure chronic ulcer of left ankle with fat layer exposed (principal); I87.2 Venous insufficiency (chronic) (peripheral); I73.9 Peripheral vascular disease, unspecified; D69.6 Thrombocytopenia, unspecified; Z79.52 Long term (current) use of systemic steroids | CPT/HCPCS: 11042 ==

== ENCOUNTER → 2024-08-31 12:55 | Outpatient (REF) | payer MEDICARE, BC, SELFPAY ==
[2024-08-31 15:34] LABS: % Basophils 0.1 % (0-2); % Immature Granulocytes 0.6 % (0-0.5); % Lymphocytes 18.7 % (20.5-51.1); % Monocytes 9.1 % (1.7-9.3); % Neutrophils 71.5 % (42.2-75.2); Absolute Immature Granulocytes 0.1 10^3/uL (0-0.05); Absolute Neutrophils 7.5 10^3/uL (1.4-6.5); Hematocrit 30.2 % (37.0-47.0); Hemoglobin 10.1 g/dL (12.0-16.0); Mean Corp Hgb Conc. 33.4 g/dL (33.0-37.0); Mean Corpuscular Hgb 33.1 pg (27.0-31.0); Mean Platelet Volume 9.7 fL (7.4-10.4); Nucleated Red Blood Cells % 0 %; Platelet Count 308 10^3/uL (130-400); Red Blood Cell Count 3.05 10^6/uL (4.20-5.40); Red Cell Dist. Width 13.4 % (11.5-14.5); White Blood Cell Count 10.5 10^3/uL (4.8-10.8)
== END ==
LOC: REG 12:55
PROVIDERS: ATTENDING PHYSICIAN Internal Medicine Hematology & Oncology; FAMILY PHYSICIAN Family Medicine
DX: D69.3 Immune thrombocytopenic purpura (principal)
CPT/HCPCS: 36415; 85025

== ENCOUNTER → 2024-08-31 13:12 | Outpatient (REF) | payer MEDICARE, BC, SELFPAY | LOC: WOUND 13:12 | PROVIDERS: ATTENDING PHYSICIAN Surgery; FAMILY PHYSICIAN Family Medicine | DX: L97.322 Non-pressure chronic ulcer of left ankle with fat layer exposed (principal); I87.2 Venous insufficiency (chronic) (peripheral); I73.9 Peripheral vascular disease, unspecified; Z79.52 Long term (current) use of systemic steroids; D69.6 Thrombocytopenia, unspecified | CPT/HCPCS: 11042 ==

== ENCOUNTER → 2024-09-06 13:31 | Outpatient (REF) | payer MEDICARE, BC, SELFPAY ==
[2024-09-06 15:38] LABS: % Basophils 0.1 % (0-2); % Eosinophils 1.2 % (0-6); % Immature Granulocytes 1.2 % (0-0.5); % Lymphocytes 18.8 % (20.5-51.1); % Monocytes 8.8 % (1.7-9.3); % Neutrophils 69.9 % (42.2-75.2); Absolute Eosinophils 0.1 10^3/uL (0-0.7); Absolute Immature Granulocytes 0.1 10^3/uL (0-0.05); Absolute Lymphocytes 2.1 10^3/uL (1.2-3.4); Absolute Neutrophils 7.9 10^3/uL (1.4-6.5); Hematocrit 30.5 % (37.0-47.0); Hemoglobin 9.9 g/dL (12.0-16.0); Mean Corp Hgb Conc. 32.5 g/dL (33.0-37.0); Mean Corpuscular Hgb 32.5 pg (27.0-31.0); Mean Platelet Volume 9.5 fL (7.4-10.4); Nucleated Red Blood Cells % 0 %; Platelet Count 281 10^3/uL (130-400); Red Blood Cell Count 3.05 10^6/uL (4.20-5.40); Red Cell Dist. Width 13.6 % (11.5-14.5); White Blood Cell Count 11.3 10^3/uL (4.8-10.8)
== END ==
LOC: HWLAB 13:31
PROVIDERS: ATTENDING PHYSICIAN Internal Medicine Hematology & Oncology; FAMILY PHYSICIAN Family Medicine
DX: D69.3 Immune thrombocytopenic purpura (principal)
CPT/HCPCS: 36415; 85025

== ENCOUNTER → 2024-09-07 11:14 | Outpatient (REF) | payer MEDICARE, BC, SELFPAY | LOC: WOUND 11:14 | PROVIDERS: ATTENDING PHYSICIAN Surgery; FAMILY PHYSICIAN Family Medicine | DX: L97.322 Non-pressure chronic ulcer of left ankle with fat layer exposed (principal); I87.2 Venous insufficiency (chronic) (peripheral); I73.9 Peripheral vascular disease, unspecified; Z79.52 Long term (current) use of systemic steroids; D69.6 Thrombocytopenia, unspecified | CPT/HCPCS: 11042 ==

== ENCOUNTER → 2024-09-18 13:36 | Outpatient (REF) | payer MEDICARE, BC, SELFPAY | LOC: WOUND 13:36 | PROVIDERS: ATTENDING PHYSICIAN Surgery; FAMILY PHYSICIAN Family Medicine | DX: L97.322 Non-pressure chronic ulcer of left ankle with fat layer exposed (principal); I87.2 Venous insufficiency (chronic) (peripheral); I73.9 Peripheral vascular disease, unspecified; D69.6 Thrombocytopenia, unspecified; Z79.52 Long term (current) use of systemic steroids | CPT/HCPCS: 11042 ==

== ENCOUNTER → 2024-09-25 10:00 | Outpatient (REF) | payer MEDICARE, BC, SELFPAY | LOC: WOUND 10:00 | PROVIDERS: ATTENDING PHYSICIAN Surgery; FAMILY PHYSICIAN Family Medicine | DX: L97.322 Non-pressure chronic ulcer of left ankle with fat layer exposed (principal); I87.2 Venous insufficiency (chronic) (peripheral); I73.9 Peripheral vascular disease, unspecified; D69.6 Thrombocytopenia, unspecified; Z79.52 Long term (current) use of systemic steroids | CPT/HCPCS: 11042 ==

== ENCOUNTER → 2024-10-02 10:06 | Outpatient (REF) | payer MEDICARE, BC, SELFPAY | LOC: WOUND 10:06 | PROVIDERS: ATTENDING PHYSICIAN Surgery | DX: L97.322 Non-pressure chronic ulcer of left ankle with fat layer exposed (principal); I87.2 Venous insufficiency (chronic) (peripheral); I73.9 Peripheral vascular disease, unspecified; D69.6 Thrombocytopenia, unspecified; Z79.52 Long term (current) use of systemic steroids | CPT/HCPCS: 11042 ==

== ENCOUNTER → 2024-10-04 10:13 | Outpatient (REF) | payer MEDICARE, BC, SELFPAY ==
[2024-10-04 12:24] LABS: % Basophils 0.6 % (0-2); % Eosinophils 1.7 % (0-6); % Immature Granulocytes 0.3 % (0-0.5); % Lymphocytes 31.2 % (20.5-51.1); % Monocytes 11.8 % (1.7-9.3); % Neutrophils 54.4 % (42.2-75.2); Absolute Eosinophils 0.1 10^3/uL (0-0.7); Absolute Lymphocytes 2.1 10^3/uL (1.2-3.4); Absolute Monocytes 0.8 10^3/uL (0.1-0.6); Absolute Neutrophils 3.6 10^3/uL (1.4-6.5); Hematocrit 29.7 % (37.0-47.0); Hemoglobin 9.1 g/dL (12.0-16.0); Mean Corp Hgb Conc. 30.6 g/dL (33.0-37.0); Mean Corpuscular Hgb 30.7 pg (27.0-31.0); Mean Corpuscular Volume 100.3 fL (81.0-99.0); Mean Platelet Volume 9.5 fL (7.4-10.4); Nucleated Red Blood Cells % 0 %; Platelet Count 285 10^3/uL (130-400); Red Blood Cell Count 2.96 10^6/uL (4.20-5.40); Red Cell Dist. Width 14.2 % (11.5-14.5); White Blood Cell Count 6.6 10^3/uL (4.8-10.8)
== END ==
LOC: HWLAB 10:13
PROVIDERS: ATTENDING PHYSICIAN Internal Medicine Hematology & Oncology
DX: D69.3 Immune thrombocytopenic purpura (principal)
CPT/HCPCS: 85025

== ENCOUNTER 2024-10-05 10:03 | Outpatient (RCR) | payer MEDICARE, BC, SELFPAY | END 2024-10-05 23:59 | disposition home or self-care (01) | LOC: RPT 10:03 | PROVIDERS: ATTENDING PHYSICIAN Internal Medicine Hematology & Oncology; FAMILY PHYSICIAN Family Medicine | DX: M81.0 Age-related osteoporosis without current pathological fracture (principal); Z73.6 Limitation of activities due to disability; M62.81 Muscle weakness (generalized); R26.89 Other abnormalities of gait and mobility; D69.3 Immune thrombocytopenic purpura | CPT/HCPCS: 97110; 97112; 97162; 97530 ==

== ENCOUNTER → 2024-10-09 14:43 | Outpatient (REF) | payer MEDICARE, BC, SELFPAY | LOC: WOUND 14:43 | PROVIDERS: ATTENDING PHYSICIAN Surgery; FAMILY PHYSICIAN Family Medicine | DX: L97.322 Non-pressure chronic ulcer of left ankle with fat layer exposed (principal); I87.2 Venous insufficiency (chronic) (peripheral); I73.9 Peripheral vascular disease, unspecified; Z79.52 Long term (current) use of systemic steroids; D69.6 Thrombocytopenia, unspecified | CPT/HCPCS: 11042 ==

== ENCOUNTER → 2024-10-17 10:11 | Outpatient (REF) | payer MEDICARE, BC, SELFPAY | LOC: WOUND 10:11 | PROVIDERS: ATTENDING PHYSICIAN Surgery; FAMILY PHYSICIAN Family Medicine | DX: L97.322 Non-pressure chronic ulcer of left ankle with fat layer exposed (principal); I87.2 Venous insufficiency (chronic) (peripheral); I73.9 Peripheral vascular disease, unspecified; D69.6 Thrombocytopenia, unspecified; Z79.52 Long term (current) use of systemic steroids | CPT/HCPCS: 11042 ==

== ENCOUNTER → 2024-10-31 10:02 | Outpatient (REF) | payer MEDICARE, BC, SELFPAY | LOC: WOUND 10:02 | PROVIDERS: ATTENDING PHYSICIAN Surgery; FAMILY PHYSICIAN Family Medicine | DX: L97.322 Non-pressure chronic ulcer of left ankle with fat layer exposed (principal); I87.2 Venous insufficiency (chronic) (peripheral); I73.9 Peripheral vascular disease, unspecified; D69.6 Thrombocytopenia, unspecified; Z79.52 Long term (current) use of systemic steroids | CPT/HCPCS: 11042 ==

== ENCOUNTER → 2024-11-01 12:56 | Outpatient (REF) | payer MEDICARE, BC, SELFPAY ==
[2024-11-01 15:59] LABS: % Basophils 0.4 % (0-2); % Eosinophils 1.7 % (0-6); % Immature Granulocytes 0.6 % (0-0.5); % Lymphocytes 33.4 % (20.5-51.1); % Monocytes 10.3 % (1.7-9.3); % Neutrophils 53.6 % (42.2-75.2); Absolute Eosinophils 0.1 10^3/uL (0-0.7); Absolute Immature Granulocytes 0.1 10^3/uL (0-0.05); Absolute Lymphocytes 2.7 10^3/uL (1.2-3.4); Absolute Monocytes 0.8 10^3/uL (0.1-0.6); Absolute Neutrophils 4.4 10^3/uL (1.4-6.5); Hematocrit 28.6 % (37.0-47.0); Hemoglobin 8.9 g/dL (12.0-16.0); Mean Corp Hgb Conc. 31.1 g/dL (33.0-37.0); Mean Corpuscular Hgb 29.8 pg (27.0-31.0); Mean Corpuscular Volume 95.7 fL (81.0-99.0); Mean Platelet Volume 9.2 fL (7.4-10.4); Nucleated Red Blood Cells % 0 %; Platelet Count 302 10^3/uL (130-400); Red Blood Cell Count 2.99 10^6/uL (4.20-5.40); Red Cell Dist. Width 14.6 % (11.5-14.5); White Blood Cell Count 8.2 10^3/uL (4.8-10.8)
== END ==
LOC: HWLAB 12:56
PROVIDERS: ATTENDING PHYSICIAN Internal Medicine Hematology & Oncology; FAMILY PHYSICIAN Family Medicine
DX: D69.3 Immune thrombocytopenic purpura (principal)
CPT/HCPCS: 36415; 85025

== ENCOUNTER → 2024-11-07 10:10 | Outpatient (REF) | payer MEDICARE, BC, SELFPAY | LOC: WOUND 10:10 | PROVIDERS: ATTENDING PHYSICIAN Surgery; FAMILY PHYSICIAN Family Medicine | DX: L97.322 Non-pressure chronic ulcer of left ankle with fat layer exposed (principal); L02.416 Cutaneous abscess of left lower limb; I87.2 Venous insufficiency (chronic) (peripheral); I73.9 Peripheral vascular disease, unspecified; D69.6 Thrombocytopenia, unspecified; Z79.52 Long term (current) use of systemic steroids | CPT/HCPCS: 87070; 87071; 87075; 87147; 87186; 87205; 99213 ==

== ENCOUNTER 2024-11-16 09:49 | Outpatient (RCR) | payer MEDICARE, BC, SELFPAY | END 2024-11-16 11:02 | disposition home or self-care (01) | LOC: RPT 09:49 | PROVIDERS: ATTENDING PHYSICIAN Internal Medicine Hematology & Oncology; FAMILY PHYSICIAN Family Medicine | DX: M81.0 Age-related osteoporosis without current pathological fracture (principal); Z73.6 Limitation of activities due to disability; M62.81 Muscle weakness (generalized); R26.89 Other abnormalities of gait and mobility; Z86.16 Personal history of COVID-19; D69.3 Immune thrombocytopenic purpura | CPT/HCPCS: 97110; 97112; 97530 ==

== ENCOUNTER → 2024-11-16 11:05 | Outpatient (REF) | payer MEDICARE, BC, SELFPAY | LOC: WOUND 11:05 | PROVIDERS: ATTENDING PHYSICIAN Surgery | DX: L97.322 Non-pressure chronic ulcer of left ankle with fat layer exposed (principal); L02.416 Cutaneous abscess of left lower limb; I87.2 Venous insufficiency (chronic) (peripheral); I73.9 Peripheral vascular disease, unspecified; D69.6 Thrombocytopenia, unspecified; Z79.52 Long term (current) use of systemic steroids | CPT/HCPCS: 11042 ==

== ENCOUNTER → 2024-11-24 08:50 | Outpatient (REF) | payer MEDICARE, BC, SELFPAY | LOC: WOUND 08:50 | PROVIDERS: ATTENDING PHYSICIAN Surgery; FAMILY PHYSICIAN Family Medicine | DX: L97.322 Non-pressure chronic ulcer of left ankle with fat layer exposed (principal); L02.416 Cutaneous abscess of left lower limb; I87.2 Venous insufficiency (chronic) (peripheral); I73.9 Peripheral vascular disease, unspecified; D69.6 Thrombocytopenia, unspecified; Z79.52 Long term (current) use of systemic steroids | CPT/HCPCS: 99213 ==

== ENCOUNTER → 2024-12-01 09:46 | Outpatient (REF) | payer MEDICARE, BC, SELFPAY | LOC: WOUND 09:46 | PROVIDERS: ATTENDING PHYSICIAN Surgery; FAMILY PHYSICIAN Family Medicine | DX: L97.322 Non-pressure chronic ulcer of left ankle with fat layer exposed (principal); L02.416 Cutaneous abscess of left lower limb; I87.2 Venous insufficiency (chronic) (peripheral); I73.9 Peripheral vascular disease, unspecified | CPT/HCPCS: 11042 ==

== ENCOUNTER → 2024-12-06 12:47 | Outpatient (REF) | payer MEDICARE, BC, SELFPAY ==
[2024-12-06 15:20] LABS: % Basophils 0.1 % (0-2); % Eosinophils 0.6 % (0-6); % Immature Granulocytes 0.5 % (0-0.5); % Lymphocytes 28.2 % (20.5-51.1); % Monocytes 13.3 % (1.7-9.3); % Neutrophils 57.3 % (42.2-75.2); Absolute Eosinophils 0.1 10^3/uL (0-0.7); Absolute Lymphocytes 2.5 10^3/uL (1.2-3.4); Absolute Monocytes 1.2 10^3/uL (0.1-0.6); Hematocrit 29.5 % (37.0-47.0); Hemoglobin 9.4 g/dL (12.0-16.0); Mean Corp Hgb Conc. 31.9 g/dL (33.0-37.0); Mean Corpuscular Hgb 28.5 pg (27.0-31.0); Mean Corpuscular Volume 89.4 fL (81.0-99.0); Mean Platelet Volume 9.8 fL (7.4-10.4); Nucleated Red Blood Cells % 0 %; Platelet Count 281 10^3/uL (130-400); Red Cell Dist. Width 15.6 % (11.5-14.5); White Blood Cell Count 8.7 10^3/uL (4.8-10.8)
== END ==
LOC: HWLAB 12:47
PROVIDERS: ATTENDING PHYSICIAN Internal Medicine Hematology & Oncology; FAMILY PHYSICIAN Family Medicine
DX: D69.3 Immune thrombocytopenic purpura (principal)
CPT/HCPCS: 36415; 85025

== ENCOUNTER → 2024-12-08 09:49 | Outpatient (REF) | payer MEDICARE, BC, SELFPAY | LOC: WOUND 09:49 | PROVIDERS: ATTENDING PHYSICIAN Surgery; FAMILY PHYSICIAN Family Medicine | DX: L97.322 Non-pressure chronic ulcer of left ankle with fat layer exposed (principal); L02.416 Cutaneous abscess of left lower limb; I87.2 Venous insufficiency (chronic) (peripheral); I73.9 Peripheral vascular disease, unspecified; D69.6 Thrombocytopenia, unspecified; Z79.52 Long term (current) use of systemic steroids | CPT/HCPCS: 99213 ==

== ENCOUNTER → 2024-12-14 13:34 | Outpatient (REF) | payer MEDICARE, BC, SELFPAY | LOC: HWRAD 13:34 | PROVIDERS: ATTENDING PHYSICIAN Neurological Surgery; FAMILY PHYSICIAN Family Medicine | DX: M96.1 Postlaminectomy syndrome, not elsewhere classified (principal) | CPT/HCPCS: 72100 ==

== ENCOUNTER → 2024-12-18 09:51 | Outpatient (REF) | payer MEDICARE, BC, SELFPAY | LOC: WOUND 09:51 | PROVIDERS: ATTENDING PHYSICIAN Surgery; FAMILY PHYSICIAN Family Medicine | DX: L97.322 Non-pressure chronic ulcer of left ankle with fat layer exposed (principal); L02.416 Cutaneous abscess of left lower limb; I87.2 Venous insufficiency (chronic) (peripheral); I73.9 Peripheral vascular disease, unspecified; D69.6 Thrombocytopenia, unspecified; Z79.52 Long term (current) use of systemic steroids | CPT/HCPCS: 11042 ==

== ENCOUNTER → 2025-01-01 09:46 | Outpatient (REF) | payer MEDICARE, BC, SELFPAY | LOC: WOUND 09:46 | PROVIDERS: ATTENDING PHYSICIAN Surgery; FAMILY PHYSICIAN Family Medicine | DX: L97.322 Non-pressure chronic ulcer of left ankle with fat layer exposed (principal); L02.416 Cutaneous abscess of left lower limb; I87.2 Venous insufficiency (chronic) (peripheral); I73.9 Peripheral vascular disease, unspecified; D69.6 Thrombocytopenia, unspecified; Z79.52 Long term (current) use of systemic steroids | CPT/HCPCS: 11042 ==

== ENCOUNTER → 2025-01-03 10:48 | Outpatient (REF) | payer MEDICARE, BC, SELFPAY ==
[2025-01-03 16:01] LABS: % Basophils 0.6 % (0-2); % Eosinophils 2.6 % (0-6); % Immature Granulocytes 0.3 % (0-0.5); % Lymphocytes 38.1 % (20.5-51.1); % Monocytes 11.6 % (1.7-9.3); % Neutrophils 46.8 % (42.2-75.2); Absolute Eosinophils 0.2 10^3/uL (0-0.7); Absolute Lymphocytes 2.7 10^3/uL (1.2-3.4); Absolute Monocytes 0.8 10^3/uL (0.1-0.6); Absolute Neutrophils 3.3 10^3/uL (1.4-6.5); Hematocrit 28.4 % (37.0-47.0); Hemoglobin 8.8 g/dL (12.0-16.0); Mean Corpuscular Volume 90.4 fL (81.0-99.0); Mean Platelet Volume 10.1 fL (7.4-10.4); Nucleated Red Blood Cells % 0 %; Platelet Count 240 10^3/uL (130-400); Red Blood Cell Count 3.14 10^6/uL (4.20-5.40); Red Cell Dist. Width 16.6 % (11.5-14.5)
== END ==
LOC: HWLAB 10:48
PROVIDERS: ATTENDING PHYSICIAN Internal Medicine Hematology & Oncology; FAMILY PHYSICIAN Family Medicine
DX: D69.3 Immune thrombocytopenic purpura (principal)
CPT/HCPCS: 36415; 85025

== ENCOUNTER → 2025-01-10 10:03 | Outpatient (REF) | payer MEDICARE, BC, SELFPAY | LOC: MRI 3T 10:03 | PROVIDERS: ATTENDING PHYSICIAN Neurological Surgery; FAMILY PHYSICIAN Family Medicine | DX: M96.1 Postlaminectomy syndrome, not elsewhere classified (principal) | CPT/HCPCS: 72148 ==

== ENCOUNTER → 2025-01-15 09:55 | Outpatient (REF) | payer MEDICARE, BC, SELFPAY | LOC: WOUND 09:55 | PROVIDERS: ATTENDING PHYSICIAN Surgery; FAMILY PHYSICIAN Family Medicine | DX: L97.322 Non-pressure chronic ulcer of left ankle with fat layer exposed (principal); L02.416 Cutaneous abscess of left lower limb; I87.2 Venous insufficiency (chronic) (peripheral); I73.9 Peripheral vascular disease, unspecified; D69.6 Thrombocytopenia, unspecified; Z79.52 Long term (current) use of systemic steroids | CPT/HCPCS: 99212 ==

== ENCOUNTER → 2025-01-29 10:17 | Outpatient (REF) | payer MEDICARE, BC, SELFPAY ==
[2025-01-29 11:46] LABS: % Basophils 0.7 % (0-2); % Eosinophils 2.9 % (0-6); % Immature Granulocytes 0.3 % (0-0.5); % Lymphocytes 42.6 % (20.5-51.1); % Monocytes 12.5 % (1.7-9.3); Absolute Eosinophils 0.2 10^3/uL (0-0.7); Absolute Lymphocytes 2.5 10^3/uL (1.2-3.4); Absolute Monocytes 0.7 10^3/uL (0.1-0.6); Absolute Neutrophils 2.4 10^3/uL (1.4-6.5); Hematocrit 27.9 % (37.0-47.0); Hemoglobin 8.6 g/dL (12.0-16.0); Mean Corp Hgb Conc. 30.8 g/dL (33.0-37.0); Mean Corpuscular Volume 87.7 fL (81.0-99.0); Mean Platelet Volume 9.9 fL (7.4-10.4); Nucleated Red Blood Cells % 0 %; Platelet Count 220 10^3/uL (130-400); Red Blood Cell Count 3.18 10^6/uL (4.20-5.40); Red Cell Dist. Width 16.2 % (11.5-14.5); White Blood Cell Count 5.8 10^3/uL (4.8-10.8)
== END ==
LOC: HWLAB 10:17
PROVIDERS: ATTENDING PHYSICIAN Internal Medicine Hematology & Oncology; FAMILY PHYSICIAN Family Medicine
DX: D69.3 Immune thrombocytopenic purpura (principal)
CPT/HCPCS: 36415; 85025

== ENCOUNTER → 2025-02-28 10:26 | Outpatient (REF) | payer MEDICARE, BC, SELFPAY ==
[2025-02-28 15:58] LABS: % Basophils 0.3 % (0-2); % Immature Granulocytes 0.1 % (0-0.5); % Lymphocytes 43.7 % (20.5-51.1); % Monocytes 10.5 % (1.7-9.3); % Neutrophils 44.4 % (42.2-75.2); Absolute Eosinophils 0.1 10^3/uL (0-0.7); Absolute Lymphocytes 3.2 10^3/uL (1.2-3.4); Absolute Monocytes 0.8 10^3/uL (0.1-0.6); Absolute Neutrophils 3.3 10^3/uL (1.4-6.5); Hematocrit 31.5 % (37.0-47.0); Hemoglobin 10.1 g/dL (12.0-16.0); Mean Corp Hgb Conc. 32.1 g/dL (33.0-37.0); Mean Corpuscular Hgb 28.1 pg (27.0-31.0); Mean Corpuscular Volume 87.7 fL (81.0-99.0); Mean Platelet Volume 10.3 fL (7.4-10.4); Nucleated Red Blood Cells % 0 %; Platelet Count 211 10^3/uL (130-400); Red Blood Cell Count 3.59 10^6/uL (4.20-5.40); Red Cell Dist. Width 17.6 % (11.5-14.5); White Blood Cell Count 7.3 10^3/uL (4.8-10.8)
== END ==
LOC: HWLAB 10:26
PROVIDERS: ATTENDING PHYSICIAN Internal Medicine Hematology & Oncology; FAMILY PHYSICIAN Family Medicine
DX: D69.3 Immune thrombocytopenic purpura (principal)
CPT/HCPCS: 36415; 85025

== ENCOUNTER → 2025-05-31 10:33 | Outpatient (REF) | payer MEDICARE, BC, SELFPAY ==
[2025-05-31 11:19] LABS: Hematocrit 29.4 % (37.0-47.0); Hemoglobin 9.1 g/dL (12.0-16.0); Mean Corp Hgb Conc. 31.0 g/dL (33.0-37.0); Mean Corpuscular Volume 88.3 fL (81.0-99.0); Nucleated Red Blood Cells % 0 %; Platelet Count 201 10^3/uL (130-400); Red Cell Dist. Width 15.9 % (11.5-14.5)
== END ==
LOC: HWLAB 10:33
PROVIDERS: ATTENDING PHYSICIAN Internal Medicine Hematology & Oncology; FAMILY PHYSICIAN Family Medicine
DX: D69.3 Immune thrombocytopenic purpura (principal)
CPT/HCPCS: 36415; 85025

== ENCOUNTER → 2025-06-25 11:16 | Outpatient (REF) | payer MEDICARE, BC, SELFPAY | LOC: HWRCS 11:16 | PROVIDERS: ATTENDING PHYSICIAN Internal Medicine Cardiovascular Disease; FAMILY PHYSICIAN Family Medicine | DX: R07.89 Other chest pain (principal); R00.2 Palpitations; Z86.79 Personal history of other diseases of the circulatory system | CPT/HCPCS: 93306 ==

== ENCOUNTER 2025-07-05 06:23 | Day surgery (SDC) | payer MEDICARE, BC, SELFPAY | END 2025-07-05 10:08 | disposition home or self-care (01) | LOC: GI 06:23 | PROVIDERS: ATTENDING PHYSICIAN Internal Medicine | DX: Z12.11 Encounter for screening for malignant neoplasm of colon (principal); D12.2 Benign neoplasm of ascending colon; D12.3 Benign neoplasm of transverse colon; D12.5 Benign neoplasm of sigmoid colon; K57.30 Diverticulosis of large intestine without perforation or abscess without bleeding; Q43.8 Other specified congenital malformations of intestine; K64.9 Unspecified hemorrhoids; K22.70 Barrett's esophagus without dysplasia; K29.50 Unspecified chronic gastritis without bleeding; D51.0 Vitamin B12 deficiency anemia due to intrinsic factor deficiency; Z86.0101 Personal history of adenomatous and serrated colon polyps | CPT/HCPCS: 45390; 43239; 88305 ==

== ENCOUNTER → 2025-07-12 08:33 | Outpatient (REF) | payer MEDICARE, BC, SELFPAY | LOC: HWRCS 08:33 | PROVIDERS: ATTENDING PHYSICIAN Internal Medicine Cardiovascular Disease; FAMILY PHYSICIAN Family Medicine | DX: R07.89 Other chest pain (principal); R00.2 Palpitations; Z86.79 Personal history of other diseases of the circulatory system | CPT/HCPCS: 78452; 93017; A9500; J2785 ==

== ENCOUNTER 2025-07-18 11:41 | Day surgery (SDC) | payer MEDICARE, BC, SELFPAY ==
[2025-07-18 13:22] VITALS: BMI 20.2
--- NOTE | 2025-07-20 08:01 | ITS.CL.IMPLP ---
[employer] Supervisor - Implant Loop
Implant Loop
Procedure Report:
Date of Procedure: July 18, 2025
Primary Care Provider: Dr. Feli Guzman
Primary cyber incident handler: Dr Amalia Marino
Procedure: Insertable Loop Recorder Implantation
Indication:
Syncope
Procedure:
The patient was brought to the procedure area in a fasting state. The anterior chest was prepped and draped in standard sterile fashion. The fourth intercostal space along the left sternal border was identified and this area was anesthetized with 10
mL of 1% lidocaine. After gathering the skin in this area, a small punch incision was made at approx intercostal space 4-5 at left costo-sternal junction using the provided scalpel/punch tool. The loop recorder was loaded into the tunneling device.
A tunnel was created in the subcutaneous tissue at a 45� angle along the coronal plane away from the sternum and towards the left flank. The tunneling device was inverted and the plunger was depressed, inserting the loop recorder into the
subcutaneous space. The tunneling device was removed. Manual pressure provide hemostasis. Adequate signal was confirmed. The skin was closed with steri-strips. The estimated blood loss was < 1 cc. A clean dressing was placed over the wound.
There were no complications.
Implant:
[employer] Reveal LINQ
Conclusion: Uncomplicated implantation of loop recorder.
Recommendation: Routine ILR care.
Copy:
Primary Care Provider: Dr. Feli Guzman
Primary cyber incident handler: Dr Amalia Marino
== END 2025-07-18 13:22 | disposition home or self-care (01) ==
LOC: CATH 11:41
PROVIDERS: ATTENDING PHYSICIAN Internal Medicine Cardiovascular Disease; FAMILY PHYSICIAN Family Medicine; OTHER PHYSICIAN Internal Medicine Cardiovascular Disease
DX: R55 Syncope and collapse (principal)
CPT/HCPCS: 33285; C1764

== ENCOUNTER → 2025-09-10 10:23 | Outpatient (REF) | payer MEDICARE, BC, SELFPAY ==
[2025-09-10 11:31] LABS: Hematocrit 31.5 % (37.0-47.0); Hemoglobin 9.5 g/dL (12.0-16.0); Mean Corp Hgb Conc. 30.2 g/dL (33.0-37.0); Mean Corpuscular Volume 93.2 fL (81.0-99.0); Nucleated Red Blood Cells % 0 %; Platelet Count 223 10^3/uL (130-400); Red Cell Dist. Width 15.7 % (11.5-14.5)
[2025-09-10 11:58] LABS: ALT (SGPT) 23 U/L (0-35); AST (SGOT) 26 U/L (14-36); Albumin 4.0 g/dl (3.5-5.0); Alkaline Phosphatase 58 U/L (38-126); Blood Urea Nitrogen 18 mg/dl (7-17); Calcium 9.1 mg/dl (8.4-10.2); Carbon Dioxide 31 mmol/L (22-30); Chloride 103 mmol/L (98-107); Glucose 86 mg/dl (70-99); HDL Cholesterol 62 mg/dl; LDL Cholesterol, Calculated 77 mg/dl; Potassium 4.5 mmol/L (3.5-5.1); Sodium 135 mmol/L (135-145); Total Protein 6.4 g/dl (6.3-8.2); Very Low Density Lipoprotein 21 mg/dl (0-30); eGFR > 60.00
== END ==
LOC: REG 10:23
PROVIDERS: ATTENDING PHYSICIAN Internal Medicine Hematology & Oncology; FAMILY PHYSICIAN Family Medicine
DX: E78.00 Pure hypercholesterolemia, unspecified (principal); M81.0 Age-related osteoporosis without current pathological fracture; I10 Essential (primary) hypertension; D69.3 Immune thrombocytopenic purpura
CPT/HCPCS: 36415; 80053; 80061; 85025

== ENCOUNTER 2025-10-17 10:13 | Outpatient (RCR) | payer MEDICARE, BC, SELFPAY | END 2025-10-17 23:59 | disposition home or self-care (01) | LOC: RPT 10:13 | PROVIDERS: ATTENDING PHYSICIAN Anesthesiology Pain Medicine; FAMILY PHYSICIAN Family Medicine | DX: R26.2 Difficulty in walking, not elsewhere classified (principal); M54.50 Low back pain, unspecified; Z73.6 Limitation of activities due to disability; M62.81 Muscle weakness (generalized); M79.604 Pain in right leg; G89.29 Other chronic pain; Z98.1 Arthrodesis status | CPT/HCPCS: 97110; 97112; 97162 ==